=== PATIENT | female | born 1950 | race Caucasian/White ===

== ENCOUNTER 2024-11-14 19:57 | Observation (INO) | payer OTHER, SELFPAY ==
--- NOTE | ~2024-11-14 | XR_ITS ---
HISTORY: fall, previous fx repaired COMPARISON: None TECHNIQUE: 2 views of the left hip along with an AP view of the pelvis FINDINGS: Intramedullary troy and screw are identified within the left femur. Likely periprosthetic fracture identified within the greater and lesser trochanter as well as within the femoral head. The central most portion of the intramedullary screw extends beyond the confines of the iliac bone, a nd approximately 11 mm into the left hemipelvis. Diffuse bony demineralization is identified. The right hip demonstrates degenerative disease, but is otherwise unremarkable. IMPRESSION: Likely periprosthetic fracture of the greater and lesser trochanter as well as the left iliac bone, as detailed above. Reviewed, dictated and finalized at location A. IMPRESSION: Likely periprosthetic fracture of the greater and lesser trochante r as well as the left iliac bone, as detailed above.
--- NOTE | ~2024-11-14 | XR_ITS ---
CHEST RADIOGRAPH, PA AND LATERAL CLINICAL HISTORY: weakness-SOB . COMPARISON: None available TECHNIQUE: PA and lateral views of the chest. FINDINGS The cardiomediastinal silhouette is enlarged. Increased interstitial markings are identified bilaterally, findings suggesting mild pulmonary vascul ar congestion. The lungs are otherwise clear. IMPRESSION: Mild pulmonary vascular congestion, without focal infiltrate. Reviewed, dictated and finalized at location A.
--- OUTSIDE RECORDS SUMMARY | 2024-11-14 19:57 | XMS_ITS | Patient Health Record ---
Author Organization [facility] Address [address] [place] [address] Care Team Providers Care Bakery Associate Name Role Phone Marco Miguel Primary Care Provider [phone] Rahul Martino Unavailable [phone] Allergies Allergen (clinical drug ingredient) Drug/Non Drug Allergy documented on EMR Reaction Allergy Type Onset Date Status Chocolate Flavor Unknown Drug Allergy Active Penicillin Unknown Drug Allergy Active Reason For Referral Reason COPD, started on oxy gen in hospital after recent pneumonia. Diagnosis 1 Chronic obstructive pulmonary disease, unspecified COPD type (J44.9) Referral Organization [facility] Referring Provider First Name Marco Referring Provider Last Name Lamont [facility] Referred Provider [facility] [place] Referred Provider Specialty Pulmonology General Notes Ashley Foster RN 06/07/2024 03:38:53 PM >[facility]'s website indicates that JUAN Olivas with [facility] [place] accepts Mondamin. Will fax referral when notes are available from visit.Kristin RN, Stephanie N 06/08/2024 09:47:40 AM >referral faxed.Kristin RN, Stephanie N 06/08/2024 09:49:06 AM >letter mailed with referral details. Clinical Notes [facility] [place] , [address] [place] [address] Wolfgang Knapp, [place] [address], , Referral Priority Routine Medications Medication SIG (Take, Route, Frequency, Duration) Notes Start Date End Date Status Hospital Bed 07/10/2024 Active Misc. Devices - Hospital bed for 999 days 07/10/2024 Active Ipratropium [place] 0.02 % 2.5 mL as needed Inhalation every 6 hours for 14 days As needed shortness of breath Active Commode Bedside - Wide for 999 days 07/10/2024 Active Nitroglycerin 0.4 MG 1 TABLET EVERY 5MIN S , MAXIMUM 3 DOSES WITH IN 15 MINS Sublingual DIRECTED for 30 days Active Misc. Devices - Safety bathroom grab bars for 999 days 07/13/2024 Active Lisinopril 10 MG 1 tablet Orally Once a day for 30 days Active HYDROcodone-Acetaminophen 10-325 MG 1 tablet as needed Orally up to two times daily 07/25/2024 Active Clopidogrel Bisulfate 75 MG 1 tablet Ora lly Once a day Active Wheelchair - Wide standard manual wheelchair with foot rests and seat cushion for 999 days 07/12/2024 Active Potassium Chloride Ariane ER 20 MEQ 2 tablets Orally Once a day Active Misc. Devices - Shower bench-wide fo r 999 days 07/13/2024 Active Sertraline HCl 100 MG TAKE 1 TABLET BY M OUTH DAILY for 90 Active Ferrous Sulfate 325 (65 Fe) MG 1 tablet Orally daily for 30 days 05/08/2024 Active Gabapentin 600 MG TAKE 1 TABLET BY DEVEN TH THREE TIMES DAILY for 30 Active Fluconazole 200 MG 1 tablet Orally once , may repeat in 3 days if needed 11/24/2023 Active Montelukast Sodium 10 MG TAKE 1 TABLET B Y MOUTH EVERY EVENING for 90 days Active Ventolin HFA 108 (90 Base) MCG/ACT 2 puffs as needed Inhalation every 6 hrs for 30 days Active Dulera 200-5 MCG/ACT INHALE TWO PUFFS BY MOUTH TWICE DAILY for 30 Active Baclofen 10 MG TAKE 1 TABLET BY DEVEN TH THREE TIMES DAILY as NEEDED FOR MUSCLE PAIN for 30 days Active busPIRone HCl 15 MG TAKE 1 TABLET BY DEVEN TH FOUR TIMES DAILY for 30 days Active Misc. Devices - Hospital Style Bed f or 999 days 10/12/2022 Active Furosemide 40 MG TAKE 1.5 TABLET BY M OUTH TWICE DAILY for 30 days Active Carvedilol 6.25 MG 1 tablet Orally twic e a day for 30 days Active Albuterol Sulfate HFA 108 (90 Base) MCG/ACT INHALE 2 PUFFS BY MOUTH BY MOUTH EVERY SIX HOURS NEEDED for 25 Active Diphenoxylate-Atropine 2.5-0.025 MG 1 tablet as needed three times a day for 30 days 07/27/2024 Active Immunizations Vaccine Route Administration Date Status Commmichael nts COVID-19 Moderna 1ST IM Intramuscular 11/27/2020 Administered COVID-19 Moderna 2nd IM Intramuscular 12/25/2020 Administered FLU VAC NO PRSV 4VAL 6 mo+ IM Intramuscular 03/21/2019 Administered Pt tolerated injection well. No questions or concerns voiced. Group [employer] FLU VAC NO PRSV 4VAL 6 mo+ IM Intramuscular 02/12/2020 Administered Pt radhames well. S dated 01/12/2020 FLU VAC NO PRSV 4VAL 6 mo+ IM Intramuscular 03/10/2022 Administered pt tolerated well Influenza, injectable, quadrivalent, preservative free IM Intramuscular 03/21/2018 Administered Pt tolerated injection well. Questions and concerns denied. Social History Tobacco Use: Social History Observation Description Date Details (start date - stop date) Never Smoker NA - NA Sex Assigned At : Social History Observation Description Sex Assigned At Female Tobacco Control (Standard) Question Answer Notes Tobacco use: Nonsmoker Section Notes: Problems Problem Type SNOMED Code ICD Code Onset Dates Problem Status W/U Status Risk Notes Problem Morbid obesity (disorder) (803890303) Morbid (severe) obesity due to excess calories (E66.01) Active confirmed Problem 271751500 Chronic pain syndrome (G89.4) Active confirmed Problem Vaccination given (571290544) Encounter for immunization (Z23) Active confirmed Problem Anxiety (41305899) Anxiety (F41.9) Active confirmed Problem 693466289 custodial curren t use of anticoagulant (Z79.01) Active confirmed Problem 738439164 Mixed stress and urge urinary incontinence (N39.46) Active confirmed Problem 685064668 Obesity (BMI 30-39.9) (E66.9) Active confirmed Problem 06833738 Chronic migraine (G43.709) Active confirmed Problem 47272248 Essential hypertension (I10) 10/07/19 18 Active confirmed Problem 428250134 Gastroesophageal reflux disease, esophagitis presence not specified (K21.9) Active confirmed Problem 71927508 Chronic obstruct scott pulmonary disease, unspecified COPD type (J44.9) Active confirmed Problem 08820831 Congestive heart failure, unspecified congestive heart failure chronicity, unspecified congestive heart failure type (I50.9) 04/19/20 17 Active confirmed Problem 822222395 Primary osteoarthritis of both knees (M17.0) Active confirmed WALKER Problem 950582948 Gastroesophageal reflux disease without esophagitis (K21.9) Active confirmed Problem 490426769 Low hemoglobin (D64.9) Active confirmed Problem Polyneuropathy (G62.9) Active confirmed Problem 693394481 Asthma, unspecif ied asthma severity, unspecified whether complicated, unspecified whether persistent (J45.909) Active confirmed Problem 19955056 Current severe episode of major depressive disorder without psychotic features without prior episode (F32.2) 07/17/19 Active confirmed Problem 780368883 Severe obesity ( BMI >= 40) (E66.01) Active confirmed Vital Signs Heart Rate 88 /min 09/17/2024 09/17/24 pt decl ined wt check Respiratory Rate 16 /min 08/02/2024 Oximetry 98 % 09/17/2024 09/17/24 pt decl ined wt check Blood pressure diastolic 78 mm Hg 09/17/202408/29 pt declined wt check Height 65 in 09/17/2024 09/17/24 pt decl ined wt check Blood pressure systolic 130 mm Hg 09/17/202409/17 pt declined wt check Weight 226.2 lbs 05/31/2024 BMI 37.64 kg/m2 05/31/2024 Encounters Encounter Location Date Provider Diagnosis [address] [place] [address] 03/13/2024 Marco Miguel Congestive heart failure, unspecified congestive heart failure chronicity, unspecified congestive heart failure type I50.9 ; Primary osteoarthritis of both knees M17.0 ; Chronic migraine G43.709 ; Anxiety F41.9 ; Chronic pain syndrome G89.4 ; Chronic obstructive pulmonary disease, unspecified COPD type J44.9 ; Obesity (BMI 30-39.9) E66.9 and Nutritional counseling Z71.[address] [place] [address] 05/08/2024 Marco Miguel Low hemoglobin D64.9 ; Obesity (BMI 30-39.9) E66.9 and Nutritional counseling Z71.[address] [address] 05/31/2024 Marco Miguel Gastroesophageal ref lux disease without esophagitis K21.9 ; Hospital discharge follow-up Z09 ; Chronic migraine G43.709 ; Chronic diarrhea K52.9 ; Chronic obstructive pulmonary disease, unspecified COPD type J44.9 ; Obesity (BMI 30-39.9) E66.9 and Nutritional counseling Z71.[address] [address] 07/12/2024 Marco Miguel Closed fracture of l eft hip, initial encounter S72.002A and Impaired mobility Z74.[address] [address] 08/02/2024 Marco Miguel Closed fracture of l eft hip, initial encounter S72.002A [address] [address] 09/17/2024 Rahul Martino Dysuria R30.0 ; Congestive heart failure, unspecified congestive heart failure chronicity, unspecified congestive heart failure type I50.9 ; Primary osteoarthritis of both knees M17.0 ; Essential hypertension I10 ; Chronic pain syndrome G89.4 ; Chronic obstructive pulmonary disease, unspecified COPD type J44.9 ; Mixed stress and urge urinary incontinence N39.46 ; History of back surgery Z98.890 ; Opioid use F11.90 and Polypharmacy Z79.[address] [address] 11/24/2023 Marco Miguel [address] [address] 12/30/2023 Marco Miguel [address] [address] 01/11/2024 Marco Miguel [address] [address] 04/05/2024 Marco Miguel [address] [address] 04/25/2024 Marco Miguel [facility] [address] [place] [address] 07/03/2024 Marco Miguel [address] [address] 07/10/2024 Marco Miguel [address] [address] 07/13/2024 Marco Miguel Impaired mobility Z74.09 and Closed fracture of left hip, initial encounter S72.002A [address] [address] 07/24/2024 Marco Miguel Closed fracture of l eft hip, initial encounter S72.002A [address] [address] 07/27/2024 Rahul Martino Chronic diarrhea K52 .[address] [address] 10/29/2024 Rahul Martino Assessments Encounter Date Diagnosis (ICD Code) Assessment Notes Treatment Notes Treatment Clinical Notes Section Notes 09/17/2024 Dysuria (ICD-10 - R30.0) UNABLE TO GIVE SPECIMEN IN OFFICE. CAREGIVER WILL TAKE HAT AND CUP HOME AND BRING SPECIMEN BACK TOMORROW. 09/17/2024 Congestive heart failure, unspecified congestive heart failure chronicity, unspecified congestive heart failure type (ICD-10 - I50.9) CLINICALLY STABLE 05/31/2024 Gastroesophageal reflux disease without esophagitis (ICD-10 - K21.9) 05/31/2024 Hospital discharge follow-up (ICD-10 - Z09) 08/02/2024 Closed fracture of left hip, initial encounter (ICD-10 - S72.002A) 07/27/2024 Chronic diarrhea (ICD-10 - K52.9) 07/24/2024 Closed fracture of left hip, initial encounter (ICD-10 - S72.002A) 05/08/2024 Obesity (BMI 30-39.9) (ICD-10 - E66.9) 05/08/2024 Low hemoglobin (ICD-10 - D64.9) 03/13/2024 Congestive heart failure, unspecified congestive heart failure chronicity, unspecified congestive heart failure type (ICD-10 - I50.9) 03/13/2024 Primary osteoarthritis of both knees (ICD-10 - M17.0) WALKER 07/13/2024 Impaired mobility (ICD-10 - Z74.09) 07/13/2024 Closed fracture of left hip, initial encounter (ICD-10 - S72.002A) 07/12/2024 Impaired mobility (ICD-10 - Z74.09) 07/12/2024 Closed fracture of left hip, initial encounter (ICD-10 - S72.002A) 05/08/2024 Nutritional counseling (ICD-10 - Z71.3) 03/13/2024 Chronic migraine (ICD-10 - G43.709) 05/31/2024 Chronic migraine (ICD-10 - G43.709) 09/17/2024 Primary osteoarthritis of both knees (ICD-10 - M17.0) USES HYDROCODONE INTERMITTENTLY 09/17/2024 Essential hypertension (ICD-10 - I10) 05/31/2024 Chronic diarrhea (ICD-10 - K52.9) 03/13/2024 Anxiety (ICD-10 - F41.9) 03/13/2024 Chronic pain syndrome (ICD-10 - G89.4) Takes chronically for OA pain. 05/31/2024 Chronic obstructive pulmonary disease, unspecified COPD type (ICD-10 - J44.9) 09/17/2024 Chronic pain syndrome (ICD-10 - G89.4) 05/31/2024 Obesity (BMI 30-39.9) (ICD-10 - E66.9) 09/17/2024 Chronic obstructive pulmonary disease, unspecified COPD type (ICD-10 - J44.9) 03/13/2024 Chronic obstructive pulmonary disease, unspecified COPD type (ICD-10 - J44.9) 03/13/2024 Obesity (BMI 30-39.9) (ICD-10 - E66.9) 09/17/2024 Mixed stress and urge urinary incontinence (ICD-10 - N39.46) 05/31/2024 Nutritional counseling (ICD-10 - Z71.3) 09/17/2024 History of back surgery (ICD-10 - Z98.890) 03/13/2024 Nutritional counseling (ICD-10 - Z71.3) 09/17/2024 Opioid use (ICD-10 - F11.90) 09/17/2024 Polypharmacy (ICD-10 - Z79.899) SHE AND CAREGIVER ARE VERY RELUCTANT TO MAKE ANY CHANGES IN HER REGIMEN. DISCUSSED THAT SHE TAKES MULTIPLE DRUGS THAT MAY AFFECT BALANCE AND MEMORY. Plan Of Treatment Pending Test Test Name Order Date DEXA Hip and Spine 11/21/2018 MAMMOGRAM BILAT, SCREENING 11/21/2018 Vitamin B12* 06/24/2017 Vitamin D, 25-Hydroxy* 06/24/2017 B-Type Natriuretic Peptide 06/24/2017 CMP14+LP+CBC/D/Plt+T4+TSH 06/24/2017 Insurance Providers Payer Name Payer Address Payer Phone Subscriber Number Group Number Insured Name Patient Relationship to Insured Coverage Start Date Coverage End Date [facility] Attn Claims Department [address] [id number] Kamilah Hale Self - patient is the insured 7 [facility] [employer] Attn Claims Department [address] [id number] Kamilah Hale Self - patient is the insured 0 [facility] Attn Claims Department [address] [id number] Kamilah Hale Self - patient is the insured 1 Medical (General) History Medical History History ICD Code CHF osteoarthritis of the knees and shoulder s bilaterally and stage anxiety acid reflux asthma Polyneuropathy Surgical History Surgery Date(Month/Year) left and right knee replace rotary cuff repaired left and right mastoid behind right ear removed back surgery Hospitalization History Reason Date(Month/Year) CHF-[facility] 05/2022 [facility]-hypokalemia 10/2022
[2024-11-14 19:58] VITALS: BP 125/72; PULSE 91; RESP 19; TEMP 36.4; O2SAT 98
--- OUTSIDE RECORDS SUMMARY | 2024-11-14 19:58 | XMS_ITS | CONTINUITY OF CARE DOCUMENT ---
Author Name francia, lakiaser Address Unknown Organization [facility] Address [address] [place] [address] Phone [phone] Care Team Providers Care Voting Machine Repairer Name Role Phone Jeffrey HOLLEY, John Unavailable [phone] BRIAN APODACA NP Unavailable BRIAN APODACA NP Unavailable PROBLEMS Condition Status Date Provider Notes CHEST PAIN-11/06 NUC INF WALL ISCHEMIA completed - John Murphy MD ARTHRITIS active John Murphy MD ASTHMA active John Murphy MD CAD--cath mild CAD, presever ed EF, 05/2022 active Isidro Nunes Cardiomyopathy -Ef nl active John López Diastolic CHF active John Murphy MD Hyperlipidemia active John Murphy MD HTN essential active John Murphy MD Edema completed - John Murphy MD DVT active John Murphy MD Wheezing completed - John Murphy MD Deconditioning- related to recent hospitalization completed - John Murphy MD Claudication completed - Isidro Nunes Peripheral artery disease, mild active Isidro Nunes Cough active Isidro Nunes Shortness of breath active Isidro Nunes Cardiology examination active Isidro Nunes ENCOUNTERS Date Type Provider Location Encounter Diag nosis - In-person encounter Office Visit John Murphy MD [facility] Cardiology examination - In-person encounter Office Visit John Murphy MD [facility] Shortness of breath - In-person encounter Office Visit John Murphy MD [facility] Cough - In-person encounter Office Visit John Murphy MD [facility] - In-person encounter Office Visit John Murphy MD [facility] - In-person encounter Office Visit John Murphy MD [facility] ClaudicationPeripheral artery disease, mild - In-person encounter Office Visit John Murphy MD [facility] CAD--cath mild CAD, presevered EF, ardiomyopathy -Ef nlDeconditioning- related to recent hospitalization - In-person encounter Office Visit John Murphy MD [facility] CAD--cath mild CAD, presevered EF, 05/2022 - In-person encounter Office Visit John Murphy MD [facility] - In-person encounter Office Visit John Murphy MD [facility] - In-person encounter Office Visit John Murphy MD [facility] - In-person encounter Office Visit John Murphy MD [facility] - In-person encounter Office Visit John Murphy MD [facility] - In-person encounter Office Visit John Murphy MD [facility] EdemaWheezing - In-person encounter Office Visit John Murphy MD [facility] - In-person encounter Office Visit John Murphy MD [facility] - In-person encounter Office Visit John Murphy MD [facility] - In-person encounter Office Visit John Murphy MD [facility] - In-person encounter Office Visit John Murphy MD [facility] - In-person encounter Office Visit John Murphy MD [facility] - In-person encounter Office Visit John Murphy MD [facility] - In-person encounter Office Visit John Murphy MD [facility] DVT - In-person encounter Office Visit John Murphy MD [facility] - In-person encounter Office Visit John Murphy MD [facility] - In-person encounter Office Visit John Murphy MD [facility] - In-person encounter Office Visit John Murphy MD [facility] CAD--cath mild CAD, presevered EF, 3Cardiomyopathy -Ef nl - In-person encounter Office Visit John Murphy MD [facility] Hyperlipidemia - In-person encounter Office Visit John Murphy MD [facility] CAD--cath mild CAD, presevered EF, 3Cardiomyopathy -Ef nlDiastolic CHFHyperlipidemiaHTN essential - In-person encounter Office Visit John Murphy MD [facility] CHEST PAIN-11/06 NUC INF WALL ISCHEMIACAD--cath mild CAD, presevered EF, 05/2022 - In-person encounter Office Visit John Murphy MD [facility] - In-person encounter Office Visit John Murphy MD [facility] ARTHRITISASTHMA VITAL SIGNS Date Observation Value Provider Body Mass Index (Ratio) 36.21 kg/m2 Isidro Grantzai blood pressure, diastolic 77 mm[Hg] Desire nkLogic blood pressure, systolic 111 mm[Hg] Hortencia kLogic weight E&M 211 [lb_av] Anna Tirado s blood pressure, diastolic 77 mm[Hg] Laura Alvarez blood pressure, systolic 111 mm[Hg] Tasha Alvarez blood pressure, cuff size regular Laura Alvarez pulse rate 87 /min Anna brizuela oxygen saturation, oximetry 98 % Anna Alvarez height E&M 64 [in_i] Anna Tirado s Body Mass Index (Ratio) 40.75 kg/m2 Renee nelida Puhse blood pressure, diastolic 79 mm[Hg] Ky macarena Carreon blood pressure, systolic 167 mm[Hg] Ashley elif Carreon oxygen saturation, oximetry 97 % [facility] pulse rate 87 /min [facility] blood pressure, cuff size regular Dash macarena Carreon weight E&M 237.4 [lb_av] [facility] height E&M 64 [in_i] [facility] Body Mass Index (Ratio) 40.33 kg/m2 Thomas Murphy MD blood pressure, diastolic 77 mm[Hg] Roxanne Dior blood pressure, systolic 134 mm[Hg] Vip in [facility], oximetry 96 % [facility]h [facility] respiratory rate E&M 16 /min Khanh M msalyssa pulse rate 78 /min [facility]h [facility] blood pressure, cuff size regular Roxanne Dior weight E&M 235 [lb_av] Khanh [facility] height E&M 64 [in_i] [facility] Body Mass Index (Ratio) 39.48 kg/m2 Isidro Nunes blood pressure, cuff size regular Fa [facility] blood pressure, diastolic 69 mm[Hg] [facility] blood pressure, systolic 125 mm[Hg] [facility] oxygen saturation, oximetry 96 % [facility] pulse rate 83 /min [facility] weight E&M 230 [lb_av] [facility] respiratory rate E&M 16 /min [facility] height E&M 64 [in_i] [facility] Body Mass Index (Ratio) 41.88 kg/m2 [facility] pulse rate 90 /min [facility] blood pressure, cuff size regular [facility] blood pressure, diastolic 74 mm[Hg] [facility] blood pressure, systolic 146 mm[Hg] [facility] oxygen saturation, oximetry 94 % [facility] respiratory rate E&M 16 /min [facility] weight E&M 244 [lb_av] [facility] height E&M 64 [in_i] [facility] Body Mass Index (Ratio) 39.92 kg/m2 [facility] nelida [facility] blood pressure, diastolic 74 mm[Hg] susanna Anderson blood pressure, systolic 134 mm[Hg] She rojelio Anderson pulse rate 72 /min Ena Anderson respiratory rate E&M 20 /min Ena Anderson oxygen saturation, oximetry 100 % Ena Anderson blood pressure, cuff size large Sh susanna Anderson weight E&M 232.6 [lb_av] Ena Monica height E&M 64 [in_i] Ena Monica Body Mass Index (Ratio) 39.13 kg/m2 Thomas Murphy MD blood pressure, cuff size large Ke rri Marquisuenetalia blood pressure, diastolic 70 mm[Hg] Ke rri Jose Eduardonetalia blood pressure, systolic 110 mm[Hg] Pantera ri Sole oxygen saturation, oximetry 94 % Yvonne Normanfjuan respiratory rate E&M 16 /min Yvonne Miley kapooreneshannanelddestini pulse rate 96 /min Yvonne Redd thomas weight E&M 228 [lb_av] Yvonne Jose Eduardoneanand thomaser height E&M 64 [in_i] Yvonne Redd thomas blood pressure, cuff size large Gerardo carolyn Beltran oxygen saturation, oximetry 97 % Lisette Beltran pulse rate 73 /min Lisette Beltran blood pressure, diastolic 67 mm[Hg] Gerardo Beltran blood pressure, systolic 134 mm[Hg] Any arie Beltran height E&M 64 [in_i] Lisette Beltran Body Mass Index (Ratio) 40.68 kg/m2 Thomas Murphy MD blood pressure, diastolic 77 mm[Hg] St augustin Hong blood pressure, systolic 144 mm[Hg] Sta kenya Hong oxygen saturation, oximetry 97 % Kay Hal pulse rate 76 /min Kay Hal respiratory rate E&M 16 /min Kaykenya purcell weight E&M 237 [lb_av] Kay Hal height E&M 64 [in_i] Kaykenya Hong Body Mass Index (Ratio) 41.02 kg/m2 Thomas Murphy MD blood pressure, diastolic -1 mm[Hg] Desire nkLogic blood pressure, systolic 120 mm[Hg] Hortencia kLog blood pressure, diastolic 67 mm[Hg] St acy Hal blood pressure, systolic 120 mm[Hg] Sta cy Hal oxygen saturation, oximetry 96 % Kay Hal pulse rate 78 /min Kay Hal weight E&M 239 [lb_av] Kay Hal respiratory rate E&M 16 /min Kay D jazzy height E&M 64 [in_i] Kay Hal Body Mass Index (Ratio) 39.89 kg/m2 Thomas Murphy MD blood pressure, cuff size regular St acy Hal blood pressure, diastolic 82 mm[Hg] St acy Hal blood pressure, systolic 162 mm[Hg] Sta cy Hal oxygen saturation, oximetry 92 % Kay Hal pulse rate 50 /min Kay Hal respiratory rate E&M 16 /min Kay D jazzy weight E&M 232.4 [lb_av] Kay Hal height E&M 64 [in_i] Kay Hal Body Mass Index (Ratio) 40.16 kg/m2 Thomas Murphy MD blood pressure, cuff size large Ke rri Marquisuenenfjuan blood pressure, diastolic 80 mm[Hg] Ke rri Marquisuenetalia blood pressure, systolic 150 mm[Hg] Pantera Whipple oxygen saturation, oximetry 95 % Yvonne Sole respiratory rate E&M 20 /min Yvonne hernandez pulse rate 91 /min Yvonne oconnell weight E&M 234 [lb_av] Yvonne Rainey lder height E&M 64 [in_i] Yvonne Redd lder Body Mass Index (Ratio) 41.88 kg/m2 Thomas Murphy MD respiratory rate E&M 16 /min Merdeith Si ms oxygen saturation, oximetry 95 % Meredith Meza pulse rate 82 /min Meredith Meza blood pressure, cuff size regular Sa ra Meza weight E&M 244 [lb_av] Meredith Meza height E&M 64 [in_i] Meredith Meza Body Mass Index (Ratio) 42.91 kg/m2 Isidro Manju blood pressure, resting Yes Palmetto kaplan O'Tadeo blood pressure, diastolic 90 mm[Hg] Li nkLogic blood pressure, systolic 160 mm[Hg] Hortencia kLogic blood pressure, diastolic 90 mm[Hg] Ma rsha O'Tadeo blood pressure, systolic 160 mm[Hg] [facility] O'[place]o oxygen saturation, oximetry 95 % Celsa O'Tadeo respiratory rate E&M 18 /min Celsa O'Tadeo pulse rate 68 /min Celsa O'Tadeo weight E&M 250 [lb_av] Celsa O'Tadeo height E&M 64 [in_i] Celsa O'Tadeo Body Mass Index (Ratio) 41.19 kg/m2 Thomas Murphy MD blood pressure, cuff size large Ke rri Sole blood pressure, diastolic 90 mm[Hg] Ke rri Marquisuenenfelddestini blood pressure, systolic 150 mm[Hg] Pantera Whipple oxygen saturation, oximetry 95 % Yvonne Sole respiratory rate E&M 20 /min Yvonne hernandez pulse rate 95 /min Yvonne Rainey er weight E&M 240 [lb_av] Yvonne Rainey er height E&M 64 [in_i] Yvonne Rainey [facility] Body Mass Index (Ratio) 40.85 kg/m2 Thomas Murphy MD blood pressure, diastolic 77 mm[Hg] Cy luda Anglin blood pressure, systolic 170 mm[Hg] Lucinda ashish Anglin blood pressure, cuff size regular Cy tammienearie Anglin pulse rate 102 /min Dayan Campbel l oxygen saturation, oximetry 94 % Dayan Anglin respiratory rate E&M 20 /min Dayan Anglin weight E&M 238 [lb_av] Dayan Campbel l height E&M 64 [in_i] Dayan Campbel l Body Mass Index (Ratio) 42.39 kg/m2 Thomas Murphy MD blood pressure, diastolic 79 mm[Hg] Cy ntchristya Anglin blood pressure, systolic 149 mm[Hg] Lucinda pamelaa Anglin blood pressure, cuff size regular Cy ntchristya Anglin pulse rate 96 /min Dayan Campbel l oxygen saturation, oximetry 99 % Dayan Anglin respiratory rate E&M 16 /min Dayan Anglin weight E&M 247 [lb_av] Dayan Campbel l height E&M 64 [in_i] Dayan Campbel l Body Mass Index (Ratio) 41.36 kg/m2 Thomas Murphy MD blood pressure, diastolic 64 mm[Hg] Paddy Jasso blood pressure, systolic 122 mm[Hg] Alexa Jasso oxygen saturation, oximetry 96 % Maureen Jasso respiratory rate E&M 20 /min Ivan Jasso pulse rate 92 /min Maureen mcgraw weight E&M 241.0 [lb_av] Maureen brown temperature site temporal Sonia Tank sley temperature E&M 97.5 [degF] Sonia Tanks nusrat height E&M 64 [in_i] Maureen mcgraw Body Mass Index (Ratio) 41.02 kg/m2 Thomas Murphy MD blood pressure, diastolic 66 mm[Hg] Cy luda Anglin temperature E&M 97.7 [degF] Carolina Puhs e blood pressure, systolic 127 mm[Hg] Lucinda ashish Anglin pulse rate 74 /min Dayan Campbel l oxygen saturation, oximetry 95 % Dayan Anglin respiratory rate E&M 16 /min Dayan Anglin weight E&M 239 [lb_av] Dayan Campbel l blood pressure, cuff size regular Cy nthia Anglin height E&M 64 [in_i] Dayan Campbel l Body Mass Index (Ratio) 41.53 kg/m2 Thomas Murphy MD blood pressure, cuff size regular Cy nthia Anglin blood pressure, diastolic 84 mm[Hg] Cy nthia Anglin blood pressure, systolic 164 mm[Hg] Lucinda thia Anglin oxygen saturation, oximetry 94 % Dayan Anglin respiratory rate E&M 20 /min Dayan Anglin pulse rate 89 /min Dayan Campbel l weight E&M 242 [lb_av] Dayan Campbel l height E&M 64 [in_i] Dayan Campbel l Body Mass Index (Ratio) 42.22 kg/m2 Thomas Murphy MD blood pressure, diastolic 80 mm[Hg] Da noel Brant blood pressure, systolic 148 mm[Hg] Dac ia Brant oxygen saturation, oximetry 96 % Do Brant respiratory rate E&M 24 /min Do V oss pulse rate 76 /min Do Brant weight E&M 246 [lb_av] Do Brant height E&M 64 [in_i] Do Brant Body Mass Index (Ratio) 41.02 kg/m2 Thomas Murphy MD blood pressure, diastolic 77 mm[Hg] Paddy Jasso blood pressure, systolic 156 mm[Hg] Alexa Jasso oxygen saturation, oximetry 94 % Maureen Jasso respiratory rate E&M 20 /min Ivan Jasso pulse rate 74 /min Maureen Johnston sofy weight E&M 239 [lb_av] Maureen Johnston [facility] height E&M 64 [in_i] Maureen Johnston [facility] Body Mass Index (Ratio) 24.20 kg/m2 Thomas Murphy MD blood pressure, diastolic 70 mm[Hg] Da noel Brant blood pressure, systolic 166 mm[Hg] Dac ia Brant oxygen saturation, oximetry 94 % Do Brant respiratory rate E&M 20 /min Do V oss pulse rate 79 /min Do Brant weight E&M 141 [lb_av] Do Brant height E&M 64 [in_i] Do Brant Body Mass Index (Ratio) 41.19 kg/m2 Thomas Murphy MD blood pressure, diastolic 90 mm[Hg] Da noel Brant blood pressure, systolic 148 mm[Hg] Dac ia Rbant oxygen saturation, oximetry 97 % Do Brant respiratory rate E&M 28 /min Do V oss pulse rate 86 /min Do Brant weight E&M 240 [lb_av] Do Brant height E&M 64 [in_i] Do Brant Body Mass Index (Ratio) 40.33 kg/m2 Thomas Murphy MD blood pressure, cuff size large Ke rri Gruenemikaer blood pressure, diastolic 80 mm[Hg] Ke rri Gruenenfelder blood pressure, systolic 120 mm[Hg] Ker ri Gruenenfelder oxygen saturation, oximetry 96 % Yvonne Raymonder respiratory rate E&M 18 /min Yvonne G emeliaenenfelder pulse rate 80 /min Yvonne Grrob lder weight E&M 235 [lb_av] Yvonne Grchristopherneshannane lder height E&M 64 [in_i] Yvonne Grchristophernenfe er Body Mass Index (Ratio) 40.33 kg/m2 Thomas Murphy MD blood pressure, cuff size regular Ke rri Gruenemikaer blood pressure, diastolic 94 mm[Hg] Ke rri Gruenenfelder blood pressure, systolic 171 mm[Hg] Ker ri Marquisuenemikaer oxygen saturation, oximetry 92 % Yvonne Raymonder respiratory rate E&M 16 /min Yvonne G emeliaenenfelder pulse rate 78 /min Yvonne Gruenenfe lder weight E&M 235 [lb_av] Yvonne Gruenenfe lder height E&M 64 [in_i] Yvonne Gruenenfe lder Body Mass Index (Ratio) 41.19 kg/m2 Thomas Murphy MD blood pressure, resting Yes Mellisa Jasso blood pressure, diastolic 77 mm[Hg] Paddy Jasso blood pressure, systolic 160 mm[Hg] Alexa Jasso oxygen saturation, oximetry 96 % Maureen Jasso respiratory rate E&M 20 /min Ivan Jasso pulse rate 80 /min Maureen mcgraw weight E&M 240 [lb_av] Maureen mcgraw height E&M 64 [in_i] Maureen mcgraw Body Mass Index (Ratio) 32.95 kg/m2 Thomas Murphy MD weight E&M 192 [lb_av] John Murphy MD blood pressure, diastolic 74 mm[Hg] Paddy Jasso blood pressure, systolic 129 mm[Hg] Alexa Jasso Body Mass Index (Ratio) 32.99 kg/m2 Mellisa Jasso pulse rate 77 /min Maureen mcgraw oxygen saturation, oximetry 96 % Maureen Jasso respiratory rate E&M 20 /min Ivan Jasso weight E&M 192.2 [lb_av] Maureen brown height E&M 64 [in_i] Maureen mcgraw blood pressure, diastolic 72 mm[Hg] Jaciel Madera RN blood pressure, systolic 138 mm[Hg] Kade Madera RN pulse rate 82 /min Kade Madera RN oxygen saturation, oximetry 98 % Kade Madera RN respiratory rate E&M 17 /min Kade valladares RN weight E&M 229 [lb_av] Kade Madera RN blood pressure, walker tolic, second observation 74 mm[Hg] Adilia Clemente blood pressure, syst olic, second observation 142 mm[Hg] Adilia Clemente blood pressure, diastolic 74 mm[Hg] Ca eb Clemente blood pressure, systolic 142 mm[Hg] Car ol Chyna pulse rate 75 /min Adilia Chyna oxygen saturation, oximetry 90 % Adilia Chyna respiratory rate E&M 16 /min Adilia Sargent yandel weight E&M 234 [lb_av] Adilia Chyna ALLERGIES Allergy Name Onset Date Reaction Criticality Status KEFLEX rash and feeling of bugs crawling on her skin Low Criticality active PENICILLIN Low Criticality active RESULTS Date Observation Value Provider Reference Range Interpretation Location 0 hemoglobin A1C, blood, as % of total hemoglobin 5.3 % [facility] 0 LDL cholesterol, serum 136 mg/dL [facility] 5 anion gap, serum [facility] calcium, serum 9.2 mg/dL [facility] Leonardo 5 blood glucose, fasting 104 mg/dL [facility] 5 creatinine, serum 0.8 mg/dL [facility] Leonardo 5 urea nitrogen, blood 17 mg/dL [facility] Leonardo 5 carbon dioxide, serum, total 31 mmol/L [facility] Leonardo 5 chloride, serum 103 mmol/L [facility] Leonardo 5 potassium, serum 4.1 mmol/L [facility] Leonardo 5 sodium, serum 138 mmol/L [facility] 5 platelet count 243 10*3/uL Alannah Patterson 5 red blood cell distribution width 13.4 % Alannah Patterson 5 mean corpuscular hemoglobin concentration, RBC 33.3 g/dL Alannah Patterson 5 mean corpuscular hemoglobin, RBC 28.4 pg Alannah Patterson 5 mean corpuscular volume, RBC 85.3 fL Alannah Patterson 5 hematocrit, blood 34.4 % Alannah Patterson 5 hemoglobin, blood 11.4 g/dL [facility] Leonardo erythrocyte (RBC) count 4.03 10*6/mm3 Alannah Patterson 2010/07/1 5 monocytes as percent of blood leukocytes 7.6 % Alannah Patterson 5 lymphocytes as percent of blood leukocytes 33.0 % Alannah Patterson 5 leukocyte count, blood 4.5 10*3/mm3 Alannah Patterson HISTORY OF MEDICATION USE Medication Status Instructions Dates Provider Indications Com ments clopidogrel 75 mg tablet active TAKE 1 TABLET BY MOUTH DAILY Isidro Nunes pantoprazole 40 mg tablet,delayed release (DR/EC) active Take 1 tablet by mouth once a day Isidro Juanitazageraldo spironolactone 25 mg tablet active Take 1 tablet by mouth once a day Isidro Negrogeraldo albuterol sulfate 90 mcg/actuation HFA aerosol inhaler active 1 puff using inhaler every four to six hours as directed as needed Isidro Juanitazageraldo albuterol sulfate 90 mcg/actuation HFA aerosol inhaler completed - Isidro Nunes clopidogrel 75 mg tablet completed Take 1 tablet by mouth once a day - Sussy Lemons potassium chloride 20 mEq tablet,ER particles/crystal s active TAKE 2 TABLET BY MOUTH EVERY DAY Isidro Nunes gabapentin 600 mg tablet completed - Isidro Nunes ondansetron 4 mg tablet,disintegra ting active Isidro Ferminspenser butalbital-acetam inophen-caff 50-325-40 mg tablet active Isidro Nunes clopidogrel 75 mg tablet completed TAKE 1 TABLET BY MOUTH EVERY DAY - Yvonne Whipple potassium chloride 20 mEq tablet,ER particles/crystal s completed Take 1 tablet by mouth once daily - [facility] atorvastatin 40 mg tablet active TAKE 1 TABLET BY MOUTH EVERY NIGHT [facility] Plavix 75 mg tablet completed Take 1 tablet by mouth once a day - [facility] Dulera 200-5 mcg/actuation HFA aerosol inhaler active Isidro Nunes baclofen 10 mg tablet active Isidro Nunes furosemide 40 mg tablet active Take 2 tablet by mouth twice a day Isidro Nunes KEFLEX 500 MG ORAL CAPSULE completed one tablet 4 times a day for 1 week - Dayan Anglin sertraline 50 mg tablet active Take 1 tablet by mouth once a day Isidroyenni Nunes RANITIDINE HCL 300 MG ORAL TABLET completed take 1 tab once a day - Dayan Anglin COUMADIN 5 MG ORAL TABLET completed ONe tablet once daily - John Murphy MD buspirone 15 mg tablet active 1 tablet by mouth three times a day John Murphy MD Singulair 10 mg tablet active Take 1 by mouth once a day Yvonne Whipple HYDROCODONE-ACETA MINOPHEN 10-325 MG ORAL TABLET completed one pill every 6 hours as needed - Do Guo gabapentin 300 mg capsule active 1 by mouth twice a day Isidro Nunes B-12 TABLET SUBLINGUAL completed one shot a month - Do Brant butalbital-acetam [id number] mg capsule completed capsule by mouth twice a day - Isidro Nunes alprazolam 2 mg tablet completed Take 1 by mouth three times a day - Yvonne Whipple nitroglycerin 0.4 mg tablet, sublingual active DISSOLVE ONE TABLET SUBLINGUALLY EVERY 5 MINUTES UP TO THREE TIMES NEEDED FOR CHEST PAIN THEN CALL EMS Meredith Meza Lasix 40 mg tablet completed 1 tablet by mouth twice a day - John Murphy MD CARISOPRODOL 350 MG ORAL TABLET completed one tab three times daily - John Murphy MD LOMOTIL 2.5-0.025 MG ORAL TABLET completed twice daily - John Murphy MD ONDANSETRON 4 MG ORAL TABLET DISINTEGRATING completed one tab three times daily - John Murphy MD GABAPENTIN 300 MG ORAL CAPSULE completed one tab twice daily - John Murphy MD Ventolin HFA 90 mcg/actuation HFA aerosol inhaler completed four times a day as needed - Isidro Tomi B-12 500 MCG ORAL TABLET completed once daily - John Murphy MD ipratropium-albut mackenzie 0.5 mg-3 mg(2.5 mg base)/3 mL solution for nebulization active every six hours as needed Kade Madera RN CLINDAMYCIN HCL 150 MG ORAL CAPSULE completed one tab 4 times daily - John Murphy MD ASPIRIN 325 MG ORAL TABLET completed ONE TAB. DAILY - Do Guo lisinopril 10 mg tablet completed 1 tablet by mouth twice a day - Page Cummings RN 90 DAY SUPPLY carvedilol 6.25 mg tablet completed Take 1 tablet by mouth twice a day - Celsa O'Tadeo PREMARIN TABLET completed 0.625 mg po daily - John Murphy MD ASPIRIN 325 MG ORAL TABLET completed one tab daily - Kade Madera RN ALPRAZOLAM 1 MG ORAL TABLET completed ONE TAB. THREE TIMES DAILY - John Murphy MD per bottle SINGULAIR 10 MG ORAL TABLET completed one tab. daily - John Murphy MD per bottle HYDROCODONE-ACETA MINOPHEN 5-500 MG ORAL TABLET completed 1 tablet every 4-6 hours as needed - John Murphy MD per bottle TRAMADOL HCL TABLET completed 50mg 1 tablet 3 times daily - Kade Madera RN per bottle ENABLEX [id number] completed 15mg 1 daily - Kade Madera RN FIORICET TABS completed 1 tablet twice daily - John Murphy MD per bottle CALCIUM CARBONATE TABLET completed one tab. twice daily - John Murphy MD per med bottle SOCIAL HISTORY Date Observation Value Provider drug use none Isidro Nunes smoking status Never smoker Isidro Nunes drug use none Isidro Nunes smoking status Never smoker Isidro Nunes drug use none Isidro Nunes smoking status Never smoker Isidro Nunes drug use none Isidro Nunes smoking status Never smoker Isidro Tom drug use none Isidro Nunes smoking status Never smoker Isidro Nunes social history reviewed E&M revi ewed - no changes required Isidro Tomgeraldo social history reviewed E&M revi ewed - no changes required John Murphy MD physical exercise, f requency, days per week yes Lisette Beltran caffeine use, averag e drinks per day no Lisette Beltran smoking status Never smoker Lisette Beltran social history reviewed E&M revi ewed - no changes required Isidro Tomgeraldo social history E&M Marital Statu s: Single L osiel alone E thnicity: Smoking History: P atmoni has never smoked. Isidro Nunes physical exercise, f requency, days per week yes Kay Hong caffeine use, averag e drinks per day no Kay Hong smoking status Never smoker Kay Hong social history reviewed E&M revi ewed - no changes required John Murphy MD physical exercise, f requency, days per week yes Kay Hong caffeine use, averag e drinks per day no Kay Hong smoking status Never smoker Kay Hong social history reviewed E&M revi ewed - no changes required John Murphy MD physical exercise, f requency, days per week yes Kay Hong caffeine use, averag e drinks per day no Kay Hong smoking status Never smoker Kay Hal social history reviewed E&M revi ewed - no changes required Isidro Nunes social history E&M Marital Statu s: Single L osiel alone E thnicity: Smoking History: P rigo has never smoked. John Murphy MD social history reviewed E&M revi ewed - no changes required John Murphy MD physical exercise, f requency, days per week yes Yvonne Whipple caffeine use, averag e drinks per day no Yvonne Whipple smoking status Never smoker Yvonne degroot social history reviewed E&M revi ewed - no changes required Isidor Nunes social history E&M Marital Statu s: Single L osiel alone E thnicity: Smoking History: P rigo has never smoked. Isidro Nunes social history reviewed E&M revi ewed - no changes required Isidro Nunes physical exercise, f requency, days per week yes Celsa Centeno'Tadeo caffeine use, averag e drinks per day no Celsa [place] smoking status Never smoker Celsa Centeno'[place]adeo social history E&M Marital Statu s: Single L osiel alone E thnicity: Smoking History: P rigo has never smoked. John Murphy MD social history reviewed E&M revi ewed - no changes required John Murphy MD physical exercise, f requency, days per week yes Yvonne Whipple caffeine use, averag e drinks per day no Yvonne Whipple smoking status Never smoker Yvonne degroot social history E&M Marital Statu s: Single L osiel alone E thnicity: Smoking History: P atient has never smoked. John Murphy MD social history reviewed E&M revi ewed - no changes required John Murphy MD physical exercise, f requency, days per week yes Dayan Anglin caffeine use, averag e drinks per day no Dayan Anglin smoking status Never smoker Dayan long social history E&M Marital Statu s: Single L osiel alone E thnicity: Smoking History: P atient has never smoked. John Murphy MD social history reviewed E&M revi ewed - no changes required John Murphy MD physical exercise, f requency, days per week yes Dayan Anglin caffeine use, averag e drinks per day no Dayan Anglin smoking status Never smoker Dayan long social history reviewed E&M revi ewed - no changes required Mirtha Melendrez physical exercise, f requency, days per week yes Maureen Romero caffeine use, averag e drinks per day no Maureen Jasso smoking status Never smoker Maureen Goss herlinda social history E&M Marital Statu s: Single L osiel alone E thnicity: Smoking History: P atient has never smoked. John Murphy MD social history reviewed E&M revi ewed - no changes required John Murphy MD physical exercise, f requency, days per week yes Dayan Anglin caffeine use, averag e drinks per day no Dayan Anglin smoking status Never smoker Dayan long social history E&M Marital Statu s: Single L osiel alone E thnicity: Smoking History: P atient has never smoked. John Murphy MD social history reviewed E&M revi ewed - no changes required John Murphy MD physical exercise, f requency, days per week yes Dayan Anglin caffeine use, averag e drinks per day no Dayan Anglin smoking status Never smoker Dayan Jatin long social history reviewed E&M revi ewed - no changes required John Murphy MD physical exercise, f requency, days per week yes Do Brant caffeine use, averag e drinks per day no Do Brant drug use none Do Brant smoking status Never smoker Do Brant social history reviewed E&M revi ewed - no changes required John Murphy MD physical exercise, f requency, days per week yes Maureen Jasso caffeine use, averag e drinks per day no Maureen Jasso drug use none Maureen mcgraw smoking status Never smoker Maureen Paniagua social history reviewed E&M revi ewed - no changes required John Murphy MD physical exercise, f requency, days per week yes Do Brant caffeine use, averag e drinks per day no Do Brant drug use none Do Brant smoking status Never smoker Do Brant number of grandchildren John Murphy MD T jimbo Murphy MD social history reviewed E&M revi ewed - no changes required John Murphy MD physical exercise, f requency, days per week yes Do Brant caffeine use, averag e drinks per day no Do Brant drug use none Do Brant smoking status Never smoker Do Brant social history reviewed E&M revi ewed - no changes required John Murphy MD physical exercise, f requency, days per week yes Yvonne Whipple caffeine use, averag e drinks per day no Yvonne Arguetapiadestini drug use none Yvonne Rainey lder smoking status Never smoker Yvonne degroot social history reviewed E&M revi ewed - no changes required John Murphy MD physical exercise, f requency, days per week yes Yvonne Arguetapiadestini caffeine use, averag e drinks per day no Yvonne Whipple drug use none Yvonne Rainey lder smoking status Never smoker Yvonne pedrozaer social history reviewed E&M revi ewed - no changes required John Murphy MD physical exercise, f requency, days per week yes Maureen Jasso caffeine use, averag e drinks per day no Maureen Jasso drug use none Maureen mcgraw smoking status Never smoker Maureen Paniagua social history reviewed E&M revi ewed - no changes required Carolina Rashid physical exercise, f requency, days per week yes Carolina Rashid caffeine use, averag e drinks per day no Carolina Rashid drug use none Carolina Rashid smoking status Never smoker Carolina Malikgerardo das social history reviewed E&M revi ewed - no changes required John Murphy MD physical exercise, f requency, days per week yes Maureen Jasso caffeine use, averag e drinks per day no Maureen Jasso drug use none Maureen mcgraw smoking status Never smoker Maureen Paniagua social history E&M Marital Statu s: Single L osiel alone E thnicity: Kade Madera RN social history reviewed E&M reviewed Kade Madera RN social history E&M Marital Status: Single John Murphy MD drug use none John Murphy MD social history reviewed E&M reviewed John Murphy MD handedness R Handed John Murphy MD physical exercise, f requency, days per week yes [employer] caffeine use, averag e drinks per day no [employer] smoking status Non-smoker [employer] FUNCTIONAL STATUS Date Observation Value Provider HRA, CV Assess/Plan, Angina (inactive) Management Plan continue current therapy Isidro Ahmedzai HRA, CV Assess/Plan, Angina (inactive) Management Plan continue current therapy Isidro Ahmedzai HRA, CV Assess/Plan, Angina (inactive) Management Plan continue current therapy Isidro Ahmedzai HRA, CV Assess/Plan, Angina (inactive) Management Plan continue current therapy Isidro Ahmedzai HRA, CV Assess/Plan, Angina (inactive) Management Plan continue current therapy Isidro Ahmedzai HRA, CV Assess/Plan, Angina (inactive) Management Plan continue current therapy Isidro Ahmedzai HRA, CV Assess/Plan, Angina (inactive) Management Plan continue current therapy Isidro Ahmedzai HRA, CV Assess/Plan, Angina (inactive) Management Plan continue current therapy Isidro Ahmedzai HRA, CV Assess/Plan, Angina (inactive) Management Plan continue current therapy John Murphy MD HRA, CV Assess/Plan, Angina (inactive) Management Plan continue current therapy Isidro Ahmedzai HRA, CV Assess/Plan, Angina (inactive) Management Plan continue current therapy Isidro Ahmedzai HRA, CV Assess/Plan, Angina (inactive) Management Plan continue current therapy John Murphy MD HRA, CV Assess/Plan, Angina (inactive) Management Plan continue current therapy John Murphy MD HRA, CV Assess/Plan, Angina (inactive) Management Plan continue current therapy John Murphy MD HRA, CV Assess/Plan, Angina (inactive) Management Plan continue current therapy John Murphy MD HRA, CV Assess/Plan, Angina (inactive) Management Plan continue current therapy John Murphy MD HRA, CV Assess/Plan, Angina (inactive) Management Plan continue current therapy John Murphy MD HRA, CV Assess/Plan, Angina (inactive) Management Plan continue current therapy John Murphy MD HRA, CV Assess/Plan, Angina (inactive) Management Plan continue current therapy John Murphy MD MENTAL STATUS Date Observation Value Provider assessment of judgme nt and insight E&M Alert and oriented to time, place and person. Mood and affect are normal. Kade Madera RN assessment of judgme nt and insight E&M Alert and oriented to time, place and person. Mood and affect are normal. John Murphy MD FAMILY HISTORY Family Member Condition Full Sister Family History of Co ronary Artery Disease: Father Family History of Co ronary Artery Disease: Mother Family History of Co ronary Artery Disease: Full Brother Family History of Di abetes: INSURANCE PROVIDERS Payer name Policy type / Coverage type [place] [employer] party ID [facility] [place] (2) Medicaid [id number] ADVANCE DIRECTIVES Name Date DISCUSSED - NO DECISION MADE TREATMENT PLAN Date Name Performer [id number],S, Isidro Ferminmedza i [id number],S, Isidro Ferminmedza i [id number],S, Isidro Ahmedza i [id number],S, Isidro Ahmedza i [id number],S, Isidro Ahmedza i [id number],S, Isidro Ahmedza i [id number],S, Isidro Ahmedza i [id number],S, Isidro Ahmedza i [id number],S, Isidro Ahmedza i [id number],S, Isidro Ahmedza i [id number],S, Isidro Ahmedza i [id number],S, Isidro Ahmedza i [id number],S, Isidro Ahmedza i [id number],S, Isidro Ahmedza i [id number],S, Isidro Ahmedza i [id number],S, Isidro Ahmedza i [id number],S, Isidro Ahmedza i [id number],S, Isidro Ahmedza i [id number],S, Isidro Ahmedza i [id number],S, Isidro Ahmedza i [id number],S, Isidro Ahmedza i [id number],S, Isidro Ahmedza i [id number],S, Isidro Ahmedza i [id number],S, Isidro Ahmedza i [id number],S, Isidro Ahmedza i [id number],S, Isidro Ahmedza i [id number],S, Isidro Ahmedza i [id number],S, Isidro Ahmedza i [id number],S, Isidro Ahmedza i [id number],S, John Murphy MD [id number],S, John Murphy MD [id number],W, John Murphy MD [id number],S, John Murphy MD [id number],S, John Murphy MD [id number],S, Isidro Juanitasarahy i [id number],S, Isidro Negro i [id number],S, Isidro Tom i [id number],S, Isidro Tom i [id number],S, Isidro Tom i [id number],S, Isidro Ferminjermaine i Cardiology: H er updated medication list for this problem includes: Clopidogrel 75 Mg Tablet (Clopidogrel) ..... Take 1 tablet by mouth once a day John Murphy MD Cardiology: H er updated medication list for this problem includes: Clopidogrel 75 Mg Tablet (Clopidogrel) ..... Take 1 tablet by mouth once a day Nitroglycerin 0.4 Mg Tablet, Sublingual (Nitroglycerin) ..... Dissolve one tablet sublingually every 5 minutes up to three times as needed for chest pain then call ems John Murphy MD Cardiology: H er updated medication list for this problem includes: Spironolactone 25 Mg Tablet (Spironolactone) ..... Take 1 tablet by mouth once a day Furosemide 40 Mg Tablet (Furosemide) ..... Take 2 tablet by mouth twice a day Clopidogrel 75 Mg Tablet (Clopidogrel) ..... Take 1 tablet by mouth once a day Nitroglycerin 0.4 Mg Tablet, Sublingual (Nitroglycerin) ..... Dissolve one tablet sublingually every 5 minutes up to three times as needed for chest pain then call ems John Murphy MD Cardiology: H er updated medication list for this problem includes: Atorvastatin 40 Mg Tablet (Atorvastatin) ..... Take 1 tablet by mouth every night John Murphy MD Cardiology: H er updated medication list for this problem includes: Spironolactone 25 Mg Tablet (Spironolactone) ..... Take 1 tablet by mouth once a day Furosemide 40 Mg Tablet (Furosemide) ..... Take 2 tablet by mouth twice a day John Murphy MD Cardiology:This visi t has been a part of the consistent, comprehensive, and ongoing management of the chronic medical condition(s) listed above for the patient. BP today: 167/79 P rior BP: 134/77 (01/04/2024) Labs Reviewed: C reat: 0.8 (12/11/2009) L DL: 136 (09/06/2017) Her updated medication list for this problem includes: Furosemide 40 Mg Tablet (Furosemide) ..... Take 2 tablet by mouth twice a day Orders: C OMPREHENSIVE METABOLIC PANEL, W/EGFR (79804) C BC (INCLUDES DIFF/PLT) (6399) F ERRITIN (457) I ELIF AND TOTAL IRON BINDING CAPACITY (7573) P ROBNP, N TERMINAL (75384) John Murphy MD Cardiology: H er updated medication list for this problem includes: Furosemide 40 Mg Tablet (Furosemide) ..... Take 2 tablet by mouth twice a day Isidro Nunes Cardiology: H er updated medication list for this problem includes: Clopidogrel 75 Mg Tablet (Clopidogrel) ..... Take 1 tablet by mouth once a day Nitroglycerin 0.4 Mg Tablet, Sublingual (Nitroglycerin) ..... Dissolve one tablet sublingually every 5 minutes up to three times as needed for chest pain then call ems Orders: C OMPREHENSIVE METABOLIC PANEL, W/EGFR (48880) C BC (INCLUDES DIFF/PLT) (6399) F ERRITIN (457) I ELIF AND TOTAL IRON BINDING CAPACITY (7573) P ROBNP, N TERMINAL ([id number]) Isidro Nunes Cardiology: B P today: 167/79 P rior BP: 134/77 (01/04/2024) Labs Reviewed: C reat: 0.8 (12/11/2009) L DL: 136 (09/06/2017) Her updated medication list for this problem includes: Furosemide 40 Mg Tablet (Furosemide) ..... Take 2 tablet by mouth twice a day Orders: C OMPREHENSIVE METABOLIC PANEL, W/EGFR (23521) C BC (INCLUDES DIFF/PLT) (6399) F ERRITIN (457) I ELIF AND TOTAL IRON BINDING CAPACITY (7573) P ROBNP, N TERMINAL (01852) [facility] Cardiology: H er updated medication list for this problem includes: Clopidogrel 75 Mg Tablet (Clopidogrel) ..... Take 1 tablet by mouth once a day Orders: C OMPREHENSIVE METABOLIC PANEL, W/EGFR (83175) C BC (INCLUDES DIFF/PLT) (6399) F ERRITIN (457) I ELIF AND TOTAL IRON BINDING CAPACITY (7573) P ROBNP, N TERMINAL (37662) [facility] Cardiology: H er updated medication list for this problem includes: Furosemide 40 Mg Tablet (Furosemide) ..... Take 2 tablet by mouth twice a day Clopidogrel 75 Mg Tablet (Clopidogrel) ..... Take 1 tablet by mouth once a day Nitroglycerin 0.4 Mg Tablet, Sublingual (Nitroglycerin) ..... Dissolve one tablet sublingually every 5 minutes up to three times as needed for chest pain then call ems Orders: C OMPREHENSIVE METABOLIC PANEL, W/EGFR (85816) C BC (INCLUDES DIFF/PLT) (6399) F ERRITIN (457) I ELIF AND TOTAL IRON BINDING CAPACITY (7573) P ROBNP, N TERMINAL (88816) [facility] Cardiology: H er updated medication list for this problem includes: Atorvastatin 40 Mg Tablet (Atorvastatin) ..... Take 1 tablet by mouth every night Orders: C OMPREHENSIVE METABOLIC PANEL, W/EGFR (48729) C BC (INCLUDES DIFF/PLT) (6399) F ERRITIN (457) I ELIF AND TOTAL IRON BINDING CAPACITY (7573) P ROBNP, N TERMINAL ([id number]) [facility] Cardiology: H er updated medication list for this problem includes: Clopidogrel 75 Mg Tablet (Clopidogrel) ..... Take 1 tablet by mouth once a day Nitroglycerin 0.4 Mg Tablet, Sublingual (Nitroglycerin) ..... Dissolve one tablet sublingually every 5 minutes up to three times as needed for chest pain then call ems Orders: C OMPREHENSIVE METABOLIC PANEL, W/EGFR (68129) C BC (INCLUDES DIFF/PLT) (6399) F ERRITIN (457) I ELIF AND TOTAL IRON BINDING CAPACITY (7573) P ROBNP, N TERMINAL (74813) Isidro Nunes Cardiology: H er updated medication list for this problem includes: Furosemide 40 Mg Tablet (Furosemide) ..... Take 2 tablet by mouth twice a day Clopidogrel 75 Mg Tablet (Clopidogrel) ..... Take 1 tablet by mouth once a day Nitroglycerin 0.4 Mg Tablet, Sublingual (Nitroglycerin) ..... Dissolve one tablet sublingually every 5 minutes up to three times as needed for chest pain then call ems Orders: C OMPREHENSIVE METABOLIC PANEL, W/EGFR (85453) C BC (INCLUDES DIFF/PLT) (6399) F ERRITIN (457) I ELIF AND TOTAL IRON BINDING CAPACITY (7573) P ROBNP, N TERMINAL ([id number]) Isidro Nunes Cardiology:This visi t has been a part of the consistent, comprehensive, and ongoing management of the chronic medical condition(s) listed above for the patient. Her updated medication list for this problem includes: Furosemide 40 Mg Tablet (Furosemide) ..... Take 2 tablet by mouth twice a day John Murphy MD Cardiology Isidro Nunes Cardiology: H er updated medication list for this problem includes: Albuterol Sulfate 90 Mcg/actuation Hfa Aerosol Inhaler (Albuterol sulfate) ..... 1 puff using inhaler every four to six hours as directed as needed Albuterol Sulfate 90 Mcg/actuation Hfa Aerosol Inhaler (Albuterol sulfate) Dulera 200-5 Mcg/actuation Hfa Aerosol Inhaler (Mometasone-formoterol) Ipratropium-albuterol 0.5 Mg-3 Mg(2.5 Mg Base)/3 Ml Solution For Nebulization (Ipratropium-albuterol) ..... Every six hours as needed Singulair 10 Mg Tablet (Montelukast) ..... Take 1 by mouth once a day Isidro Nunes Cardiology Isidro Nunes Cardiology: H er updated medication list for this problem includes: Clopidogrel 75 Mg Tablet (Clopidogrel) ..... Take 1 tablet by mouth once a day [facility] Cardiology: H er updated medication list for this problem includes: Atorvastatin 40 Mg Tablet (Atorvastatin) ..... Take 1 tablet by mouth every night [facility] Cardiology: H er updated medication list for this problem includes: Furosemide 40 Mg Tablet (Furosemide) ..... Take 2 tablet by mouth twice a day Clopidogrel 75 Mg Tablet (Clopidogrel) ..... Take 1 tablet by mouth once a day Nitroglycerin 0.4 Mg Tablet, Sublingual (Nitroglycerin) ..... Dissolve one tablet sublingually every 5 minutes up to three times as needed for chest pain then call ems [facility] Cardiology: H er updated medication list for this problem includes: Clopidogrel 75 Mg Tablet (Clopidogrel) ..... Take 1 tablet by mouth once a day Nitroglycerin 0.4 Mg Tablet, Sublingual (Nitroglycerin) ..... Dissolve one tablet sublingually every 5 minutes up to three times as needed for chest pain then call ems [facility] Cardiology: H er updated medication list for this problem includes: Clopidogrel 75 Mg Tablet (Clopidogrel) ..... Take 1 tablet by mouth every day Nitroglycerin 0.4 Mg Tablet, Sublingual (Nitroglycerin) ..... Dissolve one tablet sublingually every 5 minutes up to three times as needed for chest pain then call ems [facility] Cardiology: H er updated medication list for this problem includes: Clopidogrel 75 Mg Tablet (Clopidogrel) ..... Take 1 tablet by mouth every day Furosemide 40 Mg Tablet (Furosemide) ..... Take 1 tablet by mouth twice a day Nitroglycerin 0.4 Mg Tablet, Sublingual (Nitroglycerin) ..... Dissolve one tablet sublingually every 5 minutes up to three times as needed for chest pain then call ems [facility] Cardiology: H er updated medication list for this problem includes: Atorvastatin 40 Mg Tablet (Atorvastatin) ..... Take 1 tablet by mouth every night [facility] Cardiology: B P today: 125/69 P rior BP: 146/74 (06/06/2023) Labs Reviewed: C reat: 0.8 (12/11/2009) L DL: 136 (09/06/2017) Her updated medication list for this problem includes: Furosemide 40 Mg Tablet (Furosemide) ..... Take 1 tablet by mouth twice a day [facility] Cardiology: H er updated medication list for this problem includes: Clopidogrel 75 Mg Tablet (Clopidogrel) ..... Take 1 tablet by mouth every day [facility] Cardiology: H er updated medication list for this problem includes: Clopidogrel 75 Mg Tablet (Clopidogrel) ..... Take 1 tablet by mouth every day Furosemide 40 Mg Tablet (Furosemide) ..... Take 1 tablet by mouth twice a day Nitroglycerin 0.4 Mg Tablet, Sublingual (Nitroglycerin) ..... Dissolve one tablet sublingually every 5 minutes up to three times as needed for chest pain then call ems [facility] Isidro taylorzai Cardiology Isidro medzai Cardiology [facility]:add lasix 4 0 mg in the afternoon , continue lasix 80 mg in am [facility] Isidro medzageraldo Cardiology Isidro Christensenmedzai Cardiology Isidro Ahmedzageraldo Cardiology Isidro Ahmedzai Cardiology Isidro Ahmedzai Cardiology Isidro Christensenmedzai Cardiology Isidro Ahmedzai Cardiology Isidro Ahmedzai Cardiology Isidro medzai Cardiology Isidro Ahmedzai Cardiology Isidro Ahmedzai Cardiology Isidro Ahmedzai Cardiology Isidro Ahmedzai Cardiology Isidro medzai Cardiology Isidro Ahmedzai Cardiology Isidro Ahmedzai Cardiology Isidro Ahmedzai Cardiology Isidro Ahmedzai Cardiology Isidro Ahmedzai Cardiology Isidro Ahmedzai Cardiology Isidro Ahmedzai Cardiology Isidro Ahmedzai Cardiology Isidro Ahmedzai Cardiology Isidro Ahmedzai Cardiology Isidro Ahmedzai Cardiology Isidro Ahmedzai Cardiology Isidro Ahmedzai Cardiology Isidro Ahmedzai Cardiology Isidro Ahmedzai Cardiology Isidro Ahmedzai Cardiology John Murphy MD Cardiology John Murphy MD Cardiology John Murphy MD Cardiology John Murphy MD Cardiology John Murphy MD Cardiology Isidro Ahmedzai Cardiology Isidro Ahmedzai Cardiology Isidro Ahmedzai Cardiology Isidro Ahmedzai Cardiology Isidro Ahmedzai Cardiology Isidro Ahmedzai Cardiology Follow up John ingram MD Cardiology Follow up John ingram MD Cardiology Follow up John ingram MD Cardiology Follow up John ingram MD Cardiology follow up John ingram MD Cardiology follow up John ingram MD Cardiology follow up John ingram MD Cardiology follow up John ingram MD Cardiology follow up John ingram MD Cardiology follow up John ingram MD Cardiology John Murphy MD Cardiology John Murphy MD Cardiology John Murphy MD Cardiology John Murphy MD Cardiology John Murphy MD Cardiology follow up John ingram MD Cardiology follow up John ingram MD Cardiology follow up John ingram MD Cardiology follow up John ingram MD Cardiology follow up John ingram MD Cardiology follow up John ingram MD Cardiology follow up John ingram MD Cardiology follow up Mingicarolyn ingram MD Cardiology follow up Mingicarolyn ingram MD Cardiology follow up :Pt refuses to take any medications, nebulizers or go to the ER. John Murphy MD Cardiology follow up John ingram MD Cardiology follow up John ingram MD Cardiology follow up John ingram MD Cardiology follow up John ingram MD Cardiology follow up John ingram MD Cardiology:Jono more. John barkley MD Cardiology:BP today: 156/77 P rior BP: 166/70 (10/11/2017) H er updated medication list for this problem includes: Aspirin 325 Mg Oral Tablet (Aspirin) ..... One tab. daily Lisinopril 10 Mg Oral Tablet (Lisinopril) ..... One tab twice daily Carvedilol 6.25 Mg Oral Tablet (Carvedilol) ..... One tab. twice daily Lasix 40 Mg Oral Tablet (Furosemide) ..... 1 tablet in the morning. John Murphy MD Cardiology:Jono more, sob. Theodore Murphy MD Cardiology:She had r uptured a blood vessel in her abdomen after having a coughing spasm. Here, they stopped her coumadin for a week. SHe has not resumed her coumadin since. On 12/31/17 she had a blood clot in her rt leg. Stopped coumadin because she is noncompliant with blood checks. WIll not prescribe blood thinning medication due to patient being on multiple non steroidal agents. John Murphy MD Cardiology follow up John ingram MD Cardiology follow up Tongeraldoya Devin ingram MD Cardiology follow up Toniya Devin ingram MD Cardiology follow up Toniya Devin ingram MD Cardiology follow up Toniya Devin ingram MD Cardiology follow up Toniya Devin ingram MD Cardiology follow up:Will check lipid panel. John Murphy MD Cardiology follow up:Uses nebuli zer frequently. John Murphy MD Cardiology follow up Tonjayson ingram MD Cardiology follow up Toniya Devin ingram MD Cardiology Follow up Toniya Devin ingram MD Cardiology Follow up Toniya Devin ingram MD Cardiology Follow up Toniya Devin ingram MD Cardiology Follow up Toniya Devin ingram MD Cardiology Follow up Toniya Devin ingram MD Cardiology Follow up Toniya Devin ingram MD Cardiology Follow up Toniya Devin ingram MD Cardiology Follow up Toniya Devin ingram MD Cardiology Follow up Toniya Devin ingram MD Cardiology Follow up Toniya Devin ingram MD Cardiology Follow up Toniya Devin ingram MD Cardiology Follow up Toniya Devin ingram MD Cardiology Follow up Tonjayson ingram MD Cardiology Tonjayson Murphy MD Cardiology John Murphy MD Cardiology John Murphy MD Cardiology John Murphy MD Cardiology John Murphy MD Cardiology John Murphy MD Cardiology Tonjayson Murphy MD Cardiology John Murphy MD Cardiology John Murphy MD Cardiology John Murphy MD Cardiology Tonjayson Murphy MD Cardiology Tonjayson Murphy MD hfu: H er updated medication list for this problem includes: Singulair 10 Mg Tabs (Montelukast sodium) ..... One tab. daily Pulmonary Functions Reviewed: O 2 sat: 96 (11/19/2014) John Murphy MD post cath John Murphy MD post cath: T he following medications were removed from the medication list: Aspirin 325 Mg Tabs (Aspirin) ..... One tab daily BP today: 138/72 Prior BP: 142/74 (11/25/2009) N uclear Stress Findings: 1. Regadenoson mediated myocardial perfusion study 2 . Normal left ventricular systolic function with a calculated ejection fraction of 55%. 3 . Myocardial scintigraphy demonstrates inferior wall ischemia. (11/13/2009) C ardiac Cath: Normal coronary arteries. Normal left ventricular systolic function with ejection fraction of 50%. Continue aggressive risk factor modifications. [facility] (12/16/2009) H gb: 11.4 (12/11/2009) HCT: 34.4 (12/11/2009) RBC: 4.03 (12/11/2009) WBC: 4.5 (12/11/2009) B UN: 17 (12/11/2009) Creat: 0.8 (12/11/2009) Glucose: 104 (12/11/2009) N a+: 138 (12/11/2009) K+: 4.1 (12/11/2009) Cl: 103 (12/11/2009) John Murphy MD post cath: H er updated medication list for this problem includes: Singulair 10 Mg Tabs (Montelukast sodium) ..... One tab. daily Pulmonary Functions Reviewed: O 2 sat: 98 (2010) John Murphy MD post cath: T he following medications were removed from the medication list: Aspirin 325 Mg Tabs (Aspirin) ..... One tab daily BP today: 138/72 Prior BP: 142/74 (11/25/2009) N uclear Stress Findings: 1. Regadenoson mediated myocardial perfusion study 2 . Normal left ventricular systolic function with a calculated ejection fraction of 55%. 3 . Myocardial scintigraphy demonstrates inferior wall ischemia. (11/13/2009) C ardiac Cath: Normal coronary arteries. Normal left ventricular systolic function with ejection fraction of 50%. Continue aggressive risk factor modifications. [facility] (12/16/2009) H gb: 11.4 (12/11/2009) HCT: 34.4 (12/11/2009) RBC: 4.03 (12/11/2009) WBC: 4.5 (12/11/2009) B UN: 17 (12/11/2009) Creat: 0.8 (12/11/2009) Glucose: 104 (12/11/2009) N a+: 138 (12/11/2009) K+: 4.1 (12/11/2009) Cl: 103 (12/11/2009) John Murphy MD n/p: H er updated medication list for this problem includes: Singulair 10 Mg Tabs (Montelukast sodium) ..... One tab. daily Pulmonary Functions Reviewed: O 2 sat: 90 (11/25/2009) John Murphy MD n/p: H er updated medication list for this problem includes: Aspirin 325 Mg Tabs (Aspirin) ..... One tab daily BP today: 142/74 Prior BP: / () N uclear Stress Findings: 1. Regadenoson mediated myocardial perfusion study 2 . Normal left ventricular systolic function with a calculated ejection fraction of 55%. 3 . Myocardial scintigraphy demonstrates inferior wall ischemia. (11/13/2009) John Murphy MD Date Name PROBNP, N TERMINAL IRON AND TOTAL IRON BINDING CAPACITY FERRITIN CBC (INCLUDES DIFF/P LT) COMPREHENSIVE METABO LIC PANEL, W/EGFR Venous Doppler Bilat eral LE PROBNP, N TERMINAL TSH, free T4, total T3 CBC (INCLUDES DIFF/P LT) LIPID PANEL COMPREHENSIVE METABO LIC PANEL, W/EGFR Arterial Duplex Bi-L ower EX MUGA (LVEF) PROBNP, N TERMINAL LIPID PANEL HEMOGLOBIN A1c CBC (INCLUDES DIFF/P LT) COMPREHENSIVE METABO LIC PANEL, W/EGFR Arterial Duplex Bi-L ower EX Arterial Duplex Bi-L ower EX Complete Echo Venous Doppler Bilat eral LE - Reflux Complete Echo 6 minute walk test DLCO - 94171 FRC - 07285 FVC - 51829 PROBNP, N TERMINAL TSH, 3RD GENERATION W/REFLEX TO FT4 HEMOGLOBIN A1c IRON AND TOTAL IRON BINDING CAPACITY FERRITIN CBC (INCLUDES DIFF/P LT) LIPID PANEL COMPREHENSIVE METABO LIC PANEL, W/EGFR HISTORY OF PROCEDURES Procedure Date Procedure Name Provider Procedure Notes S tatus Complex e/m visit add on John Murphy MD completed EKG John Murphy MD completed Complex e/m visit add on John Murphy MD completed Complex e/m visit add on John Murphy MD completed EKG John Murphy MD completed EKG John Murphy MD completed EKG John Murphy MD completed EKG John Murphy MD completed EKG John Murphy MD completed EKG John Murphy MD completed SNOMED-CT: 450865364 217147 Current Medications Documented John Murphy MD completed SNOMED-CT: 17743279 Physical Exam, Performed: Pulse Exam of Foot John Murphy MD completed SNOMED-CT: 291538339 840348 Current Medications Documented John Murphy MD completed SNOMED-CT: 48194542 Physical Exam, Performed: Pulse Exam of Foot John Murphy MD completed SNOMED-CT: 23672479 Physical Exam, Performed: Pulse Exam of Foot John Murphy MD completed SNOMED-CT: 531595787 099638 Current Medications Documented John Murphy MD completed SNOMED-CT: 14097083 Physical Exam, Performed: Pulse Exam of Foot John Murphy MD completed EKG John Murphy MD completed SNOMED-CT: 898058298 961727 Current Medications Documented John Murphy MD completed SNOMED-CT: 62616321 Physical Exam, Performed: Pulse Exam of Foot John Murphy MD completed SNOMED-CT: 568378974 480631 Current Medications Documented John Murphy MD completed
--- OUTSIDE RECORDS SUMMARY | 2024-11-14 19:58 | XMS_ITS ---
Author Organization [facility] Address [address] [place] [address] Care Team Providers Care Mud Analysis Operator Name Role Phone Marco Miguel Primary Care Provider Rahul Martino [phone] REASON FOR VISIT transfer from [facility] Social History Sex Assigned At : Social History Observation Description Sex Assigned At Female Encounters Encounter Location Date Provider Diagnosis [address] [address] 09/24/2024 Rahul Martino Plan Of Treatment No Information Progress Notes * Kamilah HALE IVDOB:1950 (74 yo F)Acc No.[id number]:09/24/2024 UNLOCKED PROGRESS NOTE Progress Notes Patient: Kamilah IZAGUIRRE IV Provider: Abilio Martino :1950 A ge:74 Y S ex:Female Date:09/24/2024 Address:[address] [place] [address], [address] [facility] Pcp:Marco Miguel Subjective: * Chief Complaints: * 1 . transfer from [facility]. * Medical History: Objective: * Vitals: Assessment: Plan: * Treatment: * * Electronic signature of Montez Martino , [id number] on 11/14/2024 at 07:57 PM CDT Sign off status: Pending * Provider: Abilio Martino Date: 0 09/24/2024 Generated for Maurisio antonio/Faxing/eTransmitting on: 0 11/14/2024 07:57 PM CDT
[2024-11-14 20:06] VITALS: PULSE 89
--- NOTE | 2024-11-14 20:16 | ECG_ITS ---
Test Date: 2024-11-14 21:35:28 Measurements Intervals [place] Rate: 86 P: 66 MA: 178 QRS: -36 QRSD: 122 T: 116 QT: 409 QTc: 492 Interpretive Statements SINUS RHYTHM LEFT AXIS DEVIATION INTRAVENTRICULAR CONDUCTION DELAY CANNOT R/O SEPTAL INFARCT, AGE INDETERMINATE ST-T WAVE ABNORMALITY IN HIGH LATERAL LEADS- CONSIDER ISCHEMIA BASELINE ARTIFACT- I, II, III, AVR, AVL, AVF, V1-V6 ABNORMAL ECG No previous ECG available for comparison Electronically Signed On 11-15-2024 07:22:16 CDT by Asael Conti D.O.
[2024-11-14 21:03] LABS: Basophils Percent Auto 0.4 % (0.2-1.2); Eosinophils Absolute Auto 0.1 K/mm3 (0-0.3); Eosinophils Percent Auto 1.3 % (0-4.4); Hematocrit 38.5 % (37.0-47.0); Hemoglobin 12.1 g/dL (12.0-15.0); Immature Granulocyte Absolute 0.05 K/mm3 (0.00-0.031); Immature Granulocyte Percent A 0.5 % (0-0.5); Lymphocytes Percent Auto 10.4 % (18.3-44.2); Mean Corpuscular HGB Conc 31.4 g/dl (32-36); Mean Corpuscular Hemoglobin 28.9 pg (26-34); Mean Corpuscular Volume 92.1 fl (80-100); Mean Platelet Volume 8.8 fl (7.4-10.4); Monocytes Absolute Auto 0.6 K/mm3 (0.1-0.6); Monocytes Percent Auto 6.3 % (2.6-8.5); Neutrophils Absolute Auto 7.8 K/mm3 (1.3-6.7); Neutrophils Percent Auto 81.1 % (45.5-73.1); Platelet Count Result 286 k/mm3 (150-375); Red Blood Count 4.18 M/mm3 (4.2-5.4); Red Cell Distribution Width 14.9 % (11.5-14.5); White Blood Count 9.7 K/mm3 (4.5-10.0)
[2024-11-14 21:10] LABS: Add Urine Microscopic? YES; Appearance Urine Clear (Clear); Bacteria Urine 4+ /hpf; Bilirubin Urine Negative (Negative); Blood Urine Trace (Negative); Color Urine Yellow (Yellow); Glucose Urine UA Negative (Negative); Ketones Urine Negative (Negative); Leukocyte Esterase Ur 2+ LEU/UL (Negative); Nitrate Urine Negative (Negative); Non Pathogenic Casts 0-2; Protein Urine Negative (Negative); Specific Grav Ur 1.013 (1.001-1.035); Squamous Epithelial Cell Urine None Seen /hpf (Few); pH Urine 5.5 (5.0-9.0)
[2024-11-14 21:13] LABS: Alanine Aminotransferase 25 U/L (6-35); Albumin Level 4.1 g/dL (3.5-5.1); Alkaline Phosphatase 235 U/L (38-126); Anion Gap 10 mmol/L (4-12); Aspartate Amino Transferase 41 U/L (14-36); Bilirubin,Total 0.4 mg/dL (0.2-1.3); Blood Urea Nitrogen 29 mg/dL (7-17); Calcium 9.7 mg/dL (8.4-10.2); Carbon Dioxide 25 mmol/L (22-30); Chloride 98 mmol/L (98-107); Estimated CRCL calculation 26 ml/min; Estimated Glomerular Filt Rate 28; Glucose 130 mg/dL (65-110); Potassium 3.6 mmol/L (3.4-5.0); Sodium 133 mmol/L (137-145); Total Protein 7.8 g/dL (6.3-8.2)
[2024-11-14 21:49] VITALS: BP 141/72; PULSE 89; RESP 18; O2SAT 98
--- OUTSIDE RECORDS SUMMARY | 2024-11-14 22:20 | XMS_ITS | CONTINUITY OF CARE DOCUMENT ---
Author Name francia, lakiaser Address Unknown Organization [facility] Address [address] [place] [address] Phone [phone] Care Team Providers Care Telecasting Technician Name Role Phone Jeffrey HOLLEY, John Unavailable BRIAN APODACA NP Unavailable BRIAN APODACA NP [...] In-person encounter Office Visit John Murphy MD [facility] Cardiology examination - In-person encounter Office Visit John Murphy MD [facility] Shortness of breath - In-person encounter Office Visit John Murphy MD [facility] Cough - In-person encounter Office Visit John Murphy MD [facility] - In-person encounter Office Visit John Murphy MD [facility] - In-person encounter Office Visit John Murphy MD [facility] ClaudicationPeripheral artery disease, mild - In-person encounter Office Visit John Murphy MD [facility] CAD--cath mild CAD, presevered EF, ardiomyopathy -Ef nlDeconditioning- related to recent hospitalization - In-person encounter Office Visit John Murphy MD [facility] CAD--cath mild CAD, presevered EF, 05/2022 - In-person encounter Office Visit John Murphy MD [facility] - In-person encounter Office Visit John Murphy MD [facility] OFFICE - In-person encounter Office Visit John Murphy MD [facility] - In-person encounter Office Visit John Murphy MD [facility] - In-person encounter Office Visit John Murphy MD [facility] - In-person encounter Office Visit John Murphy MD [facility] EdemaWheezing - In-person encounter Office Visit John Murphy MD [facility] - In-person encounter Office Visit John Murphy MD [facility] - In-person encounter Office Visit John Murphy MD [facility] - In-person encounter Office Visit John Murphy MD [facility] - In-person encounter Office Visit John Murphy MD [facility] - In-person encounter Office Visit John Murphy MD [facility] - In-person encounter Office Visit John Murphy [facility] - In-person encounter Office Visit John Murphy MD [facility] DVT - In-person encounter Office Visit John Murphy MD [facility] - In-person encounter Office Visit John Murphy MD [facility] - In-person encounter Office Visit John Murphy MD [facility] - In-person encounter Office Visit John Murphy MD [facility] CAD--cath mild CAD, presevered EF, 3Cardiomyopathy -Ef nl - In-person encounter Office Visit John Murphy MD [facility] Hyperlipidemia - In-person encounter Office Visit John Murphy MD [facility] CAD--cath mild CAD, presevered EF, 3Cardiomyopathy -Ef nlDiastolic CHFHyperlipidemiaHTN essential - In-person encounter Office Visit John Murphy MD [facility] CHEST PAIN-11/06 NUC INF WALL ISCHEMIACAD--cath mild CAD, presevered EF, 05/2022 - In-person encounter Office Visit John Murphy MD [facility] - In-person encounter Office Visit John Murphy MD [facility] ARTHRITISASTHMA VITAL SIGNS Date Observation Value [...] elif Carreon oxygen saturation, oximetry 97 % [facility] pulse rate 87 /min [facility] blood pressure, cuff size regular Dash macarena Carreon weight E&M 237.4 [lb_av] [facility] height E&M 64 [in_i] [facility] Body Mass Index (Ratio) 40.33 kg/m2 Thomas Murphy MD blood pressure, diastolic 77 mm[Hg] Roxanne Dior blood pressure, systolic 134 mm[Hg] Vip in [facility], oximetry 96 % [facility]h [facility] respiratory rate E&M 16 /min Khanh M w[facility]yssa pulse rate 78 /min [facility]h [facility] blood pressure, cuff size regular Roxanne Dior weight E&M 235 [lb_av] Khanh [facility] height E&M 64 [in_i] [facility] Body Mass Index (Ratio) 39.48 kg/m2 Isidro Nunes blood pressure, cuff size regular Fa [facility] blood pressure, diastolic 69 mm[Hg] [facility] blood pressure, systolic 125 mm[Hg] [facility] oxygen saturation, oximetry 96 % [facility] pulse rate 83 /min [facility] weight E&M 230 [lb_av] [facility] respiratory rate E&M 16 /min [facility] height E&M 64 [in_i] [facility] Body Mass Index (Ratio) 41.88 kg/m2 [facility] pulse rate 90 /min [facility] blood pressure, cuff size regular [facility] blood pressure, diastolic 74 mm[Hg] [facility] blood pressure, systolic 146 mm[Hg] [facility] oxygen saturation, oximetry 94 % [facility] respiratory rate E&M 16 /min [facility] weight E&M 244 [lb_av] [facility] height E&M 64 [in_i] [facility] Body Mass Index (Ratio) 39.92 kg/m2 [facility] nelida [facility] blood pressure, diastolic 74 mm[Hg] susanna Anderson [...] Murphy MD respiratory rate E&M 16 /min Meredith Si ms oxygen saturation, oximetry 95 % Meredith Meza pulse rate 82 /min Meredith Meza blood pressure, cuff size regular Sa ra Meza weight E&M 244 [lb_av] Meredith Meza height E&M 64 [in_i] Meredith Meza Body Mass Index (Ratio) 42.91 kg/m2 Isidro Manju blood pressure, resting Yes [place] [facility] [place] blood pressure, diastolic 90 mm[Hg] Li nkLogic blood pressure, systolic 160 mm[Hg] Hortencia kLogic blood pressure, diastolic 90 mm[Hg] Ma rsha [place] blood pressure, systolic 160 mm[Hg] [facility] [place] oxygen saturation, oximetry 95 % [...] er height E&M 64 [in_i] Yvonne Rainey [facility] Body Mass Index (Ratio) 40.85 kg/m2 Thomas Murphy MD blood pressure, diastolic 77 mm[Hg] Cy luda Anglin blood pressure, systolic 170 mm[Hg] Lucinda ashish Anglin blood pressure, cuff size regular Cy tammieksarie Anglin pulse rate 102 /min Dayan Campbel [...] l Body Mass Index (Ratio) 41.53 kg/m2 Tohmas Murphy MD blood pressure, cuff size regular [...] sofy weight E&M 239 [lb_av] Maureen Johnston [facility] height E&M 64 [in_i] Maureen Johnston [facility] Body Mass Index (Ratio) 24.20 [...] mm[Hg] Dac ia Brant oxygen saturation, oximetry 97 % Do Brant [...] as % of total hemoglobin 5.3 % [facility] 0 LDL cholesterol, serum 136 mg/dL [facility] 5 anion gap, serum 9 [facility] 5 calcium, serum 9.2 mg/dL [facility] Leonardo 5 blood glucose, fasting 104 mg/dL [facility] Leonardo 5 creatinine, serum 0.8 mg/dL [facility] Leonardo 5 urea nitrogen, blood 17 mg/dL [facility] Leonardo 5 carbon dioxide, serum, total 31 mmol/L [facility] Leonardo 5 chloride, serum 103 mmol/L [facility] Leonardo 5 potassium, serum 4.1 mmol/L [facility] Leonardo 5 sodium, serum 138 mmol/L [facility] Leonardo 5 platelet count 243 10*3/uL Alannah Patterson 5 red blood cell distribution width 13.4 % Alannah Patterson 5 mean corpuscular hemoglobin concentration, RBC 33.3 g/dL Alannah Patterson 5 mean corpuscular hemoglobin, RBC 28.4 pg Alannah Patterson 5 mean corpuscular volume, RBC 85.3 fL Alannah Patterson 5 hematocrit, blood 34.4 % Alannah Patterson 5 hemoglobin, blood 11.4 g/dL [facility] Leonardo erythrocyte (RBC) count 4.03 10*6/mm3 Alannah [...] 1 tablet by mouth once daily - [facility] atorvastatin 40 mg tablet active TAKE 1 TABLET BY MOUTH EVERY NIGHT [facility] Plavix 75 mg tablet completed Take 1 tablet by mouth once a day - [facility] Dulera 200-5 mcg/actuation HFA aerosol inhaler [...] shot a month - Do Brant butalbital-acetam dvem-mog-bms 23-433-77-30 mg capsule completed capsule by mouth twice [...] - Kade Madera RN per bottle ENABLEX [id number] completed 15mg 1 daily - Kade Madera [...] revi ewed - no changes required John Murpyh MD physical exercise, f requency, days per [...] Payer name Policy type / Coverage type [employer] red alliance party ID [facility] MEDICAID (2) Medicaid [id number] ADVANCE DIRECTIVES Name Date DISCUSSED - NO DECISION MADE TREATMENT PLAN Date Name Performer [id number],S, Isidro Ferminmedza i [id number],S, Isidro Ferminmedza i [id number],S, Isidro Ahmedza i [id number],S, Isidro Ahmedza i [id number],S, Isidro Ahmedza i [id number],S, Isidro Ahmedza i [id number],S, Isidro Ahmedza i [id number],S, Isidro Ahmedza i [id number],S, Isidro Ahmedza i [id number],S, Isidro Ahmedza i [id number],S, Isidro Ahmedza i [id number],S, Isidro Ahmedza i [id number],S, Isidro Ahmedza i [id number],S, Isidro Ahmedza i [id number],S, Isidro Ahmedza i [id number],S, Isidro Ahmedza i [id number],S, Isidro Ahmedza i [id number],S, Isidro Ahmedza i [id number],S, Isidro Ahmedza i [id number],S, Isidro Ahmedza i [id number],S, Isidro Ahmedza i [id number],S, Isidro Ahmedza i [id number],S, Isidro Ahmedza i [id number],S, Isidro Ahmedza i [id number],S, Isidro Ahmedza i [id number],S, Isidro Ahmedza i [id number],S, Isidro Ahmedza i [id number],S, Isidro Ahmedza i [id number],S, Isidro Ahmedza i [id number],S, John Murphy MD [id number],S, John Murphy MD [id number],W, John Murphy MD [id number],S, Jhon Murphy MD [id number],S, John Murphy MD [id number],S, Isidro Juanitasarahy i [id number],S, Isidro Negro i [id number],S, Isidro Tom i [id number],S, Isidro Tom i [id number],S, Isidro Tom i [id number],S, Isidro Ferminjermaine i Cardiology: H er updated [...] day Orders: C OMPREHENSIVE METABOLIC PANEL, W/EGFR (84605) C BC (INCLUDES DIFF/PLT) (6399) F ERRITIN (457) I ELIF AND TOTAL IRON BINDING CAPACITY (7573) P ROBNP, N TERMINAL (05614) John Murphy MD Cardiology: H er updated [...] ems Orders: C OMPREHENSIVE METABOLIC PANEL, W/EGFR (05767) C BC (INCLUDES DIFF/PLT) (6399) F ERRITIN (457) I ELIF AND TOTAL IRON BINDING CAPACITY (7573) P ROBNP, N TERMINAL (00370) Isidro Nunes Cardiology: B P today: 167/79 P rior BP: 134/77 (01/04/2024) Labs Reviewed: C reat: 0.8 (12/11/2009) L DL: 136 (09/06/2017) Her updated medication list for this problem includes: Furosemide 40 Mg Tablet (Furosemide) ..... Take 2 tablet by mouth twice a day Orders: C OMPREHENSIVE METABOLIC PANEL, W/EGFR (56734) C BC (INCLUDES DIFF/PLT) (6399) F ERRITIN (457) I ELIF AND TOTAL IRON BINDING CAPACITY (7573) P ROBNP, N TERMINAL (34669) [facility] Cardiology: H er updated medication list for this problem includes: Clopidogrel 75 Mg Tablet (Clopidogrel) ..... Take 1 tablet by mouth once a day Orders: C OMPREHENSIVE METABOLIC PANEL, W/EGFR (02082) C BC (INCLUDES DIFF/PLT) (6399) F ERRITIN (457) I ELIF AND TOTAL IRON BINDING CAPACITY (7573) P ROBNP, N TERMINAL (22858) [facility] Cardiology: H er updated medication list for [...] ems Orders: C OMPREHENSIVE METABOLIC PANEL, W/EGFR (10138) C BC (INCLUDES DIFF/PLT) (6399) F ERRITIN (457) I ELIF AND TOTAL IRON BINDING CAPACITY (7573) P ROBNP, N TERMINAL (51079) [facility] Cardiology: H er updated medication list for this problem includes: Atorvastatin 40 Mg Tablet (Atorvastatin) ..... Take 1 tablet by mouth every night Orders: C OMPREHENSIVE METABOLIC PANEL, W/EGFR (07532) C BC (INCLUDES DIFF/PLT) (6399) F ERRITIN (457) I ELIF AND TOTAL IRON BINDING CAPACITY (7573) P ROBNP, N TERMINAL (65919) [facility] Cardiology: H er updated medication list for this problem includes: Clopidogrel 75 Mg Tablet (Clopidogrel) ..... Take 1 tablet by mouth once a day Nitroglycerin 0.4 Mg Tablet, Sublingual (Nitroglycerin) ..... Dissolve one tablet sublingually every 5 minutes up to three times as needed for chest pain then call ems Orders: C OMPREHENSIVE METABOLIC PANEL, W/EGFR (61474) C BC (INCLUDES DIFF/PLT) (6399) F ERRITIN (457) I ELIF AND TOTAL IRON BINDING CAPACITY (7573) P ROBNP, N TERMINAL (61133) Isidro Nunes Cardiology: H er updated medication [...] ems Orders: C OMPREHENSIVE METABOLIC PANEL, W/EGFR (26275) C BC (INCLUDES DIFF/PLT) (6399) F ERRITIN (457) I ELIF AND TOTAL IRON BINDING CAPACITY (7573) P ROBNP, N TERMINAL (84354) Isidro Nunes Cardiology:This visi t has been [...] 1 tablet by mouth once a day [facility] Cardiology: H er updated medication list for this problem includes: Atorvastatin 40 Mg Tablet (Atorvastatin) ..... Take 1 tablet by mouth every night [facility] Cardiology: H er updated medication list for [...] needed for chest pain then call ems [facility] Cardiology: H er updated medication list for this problem includes: Clopidogrel 75 Mg Tablet (Clopidogrel) ..... Take 1 tablet by mouth once a day Nitroglycerin 0.4 Mg Tablet, Sublingual (Nitroglycerin) ..... Dissolve one tablet sublingually every 5 minutes up to three times as needed for chest pain then call ems [facility] Cardiology: H er updated medication list for this problem includes: Clopidogrel 75 Mg Tablet (Clopidogrel) ..... Take 1 tablet by mouth every day Nitroglycerin 0.4 Mg Tablet, Sublingual (Nitroglycerin) ..... Dissolve one tablet sublingually every 5 minutes up to three times as needed for chest pain then call ems [facility] Cardiology: H er updated medication list for this problem includes: Clopidogrel 75 Mg Tablet (Clopidogrel) ..... Take 1 tablet by mouth every day Furosemide 40 Mg Tablet (Furosemide) ..... Take 1 tablet by mouth twice a day Nitroglycerin 0.4 Mg Tablet, Sublingual (Nitroglycerin) ..... Dissolve one tablet sublingually every 5 minutes up to three times as needed for chest pain then call ems [facility] Cardiology: H er updated medication list for this problem includes: Atorvastatin 40 Mg Tablet (Atorvastatin) ..... Take 1 tablet by mouth every night [facility] Cardiology: B P today: 125/69 P rior BP: 146/74 (06/06/2023) Labs Reviewed: C reat: 0.8 (12/11/2009) L DL: 136 (09/06/2017) Her updated medication list for this problem includes: Furosemide 40 Mg Tablet (Furosemide) ..... Take 1 tablet by mouth twice a day [facility] Cardiology: H er updated medication list for this problem includes: Clopidogrel 75 Mg Tablet (Clopidogrel) ..... Take 1 tablet by mouth every day [facility] Cardiology: H er updated medication list for this problem includes: Clopidogrel 75 Mg Tablet (Clopidogrel) ..... Take 1 tablet by mouth every day Furosemide 40 Mg Tablet (Furosemide) ..... Take 1 tablet by mouth twice a day Nitroglycerin 0.4 Mg Tablet, Sublingual (Nitroglycerin) ..... Dissolve one tablet sublingually every 5 minutes up to three times as needed for chest pain then call ems [facility] Isidro taylorzai Cardiology Isidro medzai Cardiology [facility]:add lasix 4 0 mg in the afternoon , continue lasix 80 mg in am [facility] Isidro medzageraldo Cardiology Isidro Christensenmedzai Cardiology Isidro Ahmedzageraldo Cardiology Isidro Ahmedzai Cardiology Isidro Ahmedzai Cardiology Isidro Christensenmedzai Cardiology Isidro Ahmedzai Cardiology Isidro Ahmedzai Cardiology Isidro medzai Cardiology Isidro Ahmedzai Cardiology Isidro Ahmedzai Cardiology Isidro Ahmedzai Cardiology Isidro Ahmedzai Cardiology Isidro medzai Cardiology Isidro Ahmedzai Cardiology Isidro Ahmedzai Cardiology Isidro Ahmedzai Cardiology Iisdro Ahmedzai Cardiology Isidro Ahmedzai Cardiology Isidro Ahmedzai [...] MD Cardiology John Murphy MD Cardiology John Mruphy MD Cardiology John Murphy MD Cardiology follow [...] Murphy MD Cardiology John Murphy MD Cardiology oJhn Murphy MD Cardiology John Murphy MD Cardiology [...] of 50%. Continue aggressive risk factor modifications. [facility] (12/16/2009) H gb: 11.4 (12/11/2009) HCT: 34.4 [...] of 50%. Continue aggressive risk factor modifications. [facility] (12/16/2009) H gb: 11.4 (12/11/2009) HCT: 34.4 [...] Echo 6 minute walk test DLCO - 62469 FRC - 14216 FVC - 81896 PROBNP, N TERMINAL TSH, 3RD GENERATION W/REFLEX [...] completed EKG John Murphy MD completed SNOMED-CT: 851293532 [id number] Current Medications Documented John Murphy MD completed SNOMED-CT: 73387791 Physical Exam, Performed: Pulse Exam of Foot John Murphy MD completed SNOMED-CT: 404721560 729357 Current Medications Documented John Murphy MD completed SNOMED-CT: 24936643 Physical Exam, Performed: Pulse Exam of Foot John Murphy MD completed SNOMED-CT: 58729013 Physical Exam, Performed: Pulse Exam of Foot John Murphy MD completed SNOMED-CT: 094488758 109654 Current Medications Documented John Murphy MD completed SNOMED-CT: 70754656 Physical Exam, Performed: Pulse Exam of Foot John Murphy MD completed EKG John Murphy MD completed SNOMED-CT: 877458478 975739 Current Medications Documented John Murphy MD completed SNOMED-CT: 20657040 Physical Exam, Performed: Pulse Exam of Foot John Murphy MD completed SNOMED-CT: 578048340 857674 Current Medications Documented John Murphy MD completed
[2024-11-14 22:38] LABS: Fractional Inspired Oxygen 21 %; HCO3 VBG 26.3 mEq/l (24.0-30.0); PCO2 VBG 40.2 mmHg (42.0-48.0); PO2 VBG 50.4 mmHg (35.0-45.0)
[2024-11-14 22:42] LABS: pH VBG 7.434 (7.300-7.400)
[2024-11-14 22:45] LABS: NT Pro B Type Natriuretic Pept 232 pg/mL (19.9-100)
[2024-11-14 23:15] VITALS: BP 149/66; PULSE 87; RESP 18; O2SAT 96
--- NOTE | 2024-11-14 23:19 | ED.WEAKNESS ---
HPI - Weakness General Chief complaint: Weakness Stated complaint: Weakness Time Seen by Provider: 11/14/24 22:12 History of Present Illness HPI Narrative: 74-year-old female presenting to the emergency department with her family members for concerns of not ambulating or walking. Patient has a history of coronary artery disease, congestive heart failure, hypertension, asthma, debility with normal ambulation with a walker. Patient states that she is having pain in her left hip and family members note that she has been complaining about it more often. Denies any new falls but states that several months ago she had another fall after her previous hip fracture that was repaired with a troy in her femur. She is not seek medical attention again the images during that time. Since then she has been using Tylenol frequently according to the family members and still complaining of pain. For last days she has been having difficulty ambulating and refusing to get up. Patient denies any complaints at this time, denies any nausea, vomiting, headache, vision changes. No reported falls or head trauma. She is not on any anticoagulation. Patient herself is usually mobile with a walker, and family states that she has refused to try and get up today from pain. Denies any neuropathy, good distal range of motion, patient is hesitant to move her hip and states that is hurting her more than usual. Family members are concerned that they were not able to take care of her and given her level mobility think she needs rehabilitation but would not like her in a intermediate. Related Data Home Medications ?Medication ?Instructions ?Recorded ?Confirmed ?Last Taken ?Type albuterol sulfate 90 mcg/actuation 1 inhalation inhalation Q4H 06/11/19 11/15/24 Unknown History aerosol inhaler (Ventolin HFA) furosemide 40 mg tablet 40 mg PO QAM 06/11/19 11/15/24 Unknown History montelukast 10 mg tablet 10 mg PO DAILY 06/11/19 11/15/24 Unknown History (Singulair) nitroglycerin 0.4 mg sublingual 0.4 mg sublingual Q5M PRN chest 06/11/19 11/15/24 Unknown History tablet pain buspirone 15 mg tablet 15 mg PO BID 06/13/19 11/15/24 Unknown History ondansetron HCl 4 mg tablet 4 mg PO Q8H 06/13/19 11/15/24 Unknown History aspirin 81 mg tablet,delayed 81 mg PO DAILY 11/15/24 11/15/24 Unknown History release atorvastatin 40 mg tablet 40 mg PO DAILY 11/15/24 11/15/24 Unknown History baclofen 10 mg tablet 10 mg PO Q8H PRN muscle spasm 11/15/24 11/15/24 Unknown History luhfwpxusu-xoxeshvvlwbdq-xlmhmybm 1 tablet PO Q6H PRN pain 11/15/24 11/15/24 Unknown History 50 mg-325 mg-40 mg tablet clopidogrel 75 mg tablet 75 mg PO DAILY 11/15/24 11/15/24 Unknown History cyclobenzaprine 10 mg tablet 10 mg PO DAILY 11/15/24 11/15/24 Unknown History ferrous sulfate 325 mg (65 mg 325 mg PO DAILY 11/15/24 11/15/24 Unknown History iron) tablet (FeroSul) gabapentin 600 mg tablet 600 mg PO TID 11/15/24 11/15/24 Unknown History hydrocodone 10 mg-acetaminophen 1 tablet PO DAILY PRN pain 11/15/24 11/15/24 Unknown History 325 mg tablet loperamide 2 mg capsule 2 mg PO DAILY 11/15/24 11/15/24 Unknown History mometasone-formoterol HFA 200 2 inh inhalation Q12H 11/15/24 11/15/24 Unknown History mcg-5 mcg/actuation aerosol inhaler (Dulera) pantoprazole 40 mg tablet,delayed 40 mg PO DAILY 11/15/24 11/15/24 Unknown History release potassium chloride 20 mEq 20 meq PO DAILY 11/15/24 11/15/24 Unknown History tablet,extended release(part/cryst) sertraline 100 mg tablet 100 mg PO DAILY 11/15/24 11/15/24 Unknown History Allergies Allergy/AdvReac Type Severity Reaction Status Date / Time Penicillins Allergy Mild Rash Verified 06/13/19 14:34 Review of Systems Review of Systems: As reviewed above in [facility] Past Medical History Medical History DVT (deep venous thrombosis) Asthma Social History Social History Smoking status: Never smoker Alcohol intake: never Substance use: never Do You Feel Safe in your Home?: Yes Lack of Transportation: No Lack of Food: Never True Current Housing: I Have Housing Concerned About Future Housing: No Difficulty Paying Gas/Electric Bills: No Difficulty Paying for Meds: No Currently Unemployed: No Education: Grade School Difficulty w/ Childcare or Family Care: No Spiritual care concerns: No Exam Narrative: GENERAL: Elderly, obese, not any distress HEAD: [Normocephalic, atraumatic.] EYES: [PERRLA and EOMI.] ENT: Nares clear, no rhinorrhea or epistaxis. Mucous membranes moist. NECK: Supple. CHEST: [Clear to auscultation. No respiratory distress.] HEART: [Regular rate and rhythm]. No murmur heard. [Normal peripheral pulses.] ABDOMEN: [Soft, nondistended], [nontender], [No rigidity or guarding] EXTREMITIES: Bilateral lower extremities with lymphedema, no pitting edema, varicosities noted. Plantar and dorsiflexion 5/5 bilaterally, able to raise the right leg without difficulty, patient refusing to raise the left leg secondary to pain. Pain reproducible palpation over lateral hip. No new skin changes or overlying deformity. No shortening or external rotation. No upper extremity injuries. SKIN: Warm, dry, no rash. Surgical scars over the bilateral legs old NEURO: [No focal deficits]. Alert and oriented [x3.] PSYCH: [Normal mood and affect.] Course Vital Signs Vital signs: Vital Signs Temperature 36.4 C L 11/14/24 19:58 Pulse Rate 91 11/14/24 19:58 Respiratory Rate 19 11/14/24 19:58 Blood Pressure 125/72 11/14/24 19:58 Pulse Oximetry 98 11/14/24 19:58 Oxygen Delivery Room Air 11/14/24 19:58 Temperature 36.3 C L 11/15/24 04:59 Pulse Rate 80 11/15/24 04:59 Respiratory Rate 20 11/15/24 04:59 Blood Pressure 140/60 11/15/24 04:59 Pulse Oximetry 96 11/15/24 04:59 Oxygen Delivery Room Air 11/14/24 19:58 MDM - Weakness MDM Narrative Medical decision making narrative: 74-year-old female presenting to the emergency department for refusing to ambulate. Patient normally walks with a walker and has a history of left-sided hip repair with a femur troy from previous fracture. She has fallen on that hip over a month ago but not sought medical attention and has been taking Tylenol for pain since. She normally walks with some difficulty and pain but pain got worse today and she has been refusing to walk. She denies any new falls or injuries, no head trauma or blood thinner use. She has strong symmetric pulses, lymphedema bilateral legs, no new trauma or injuries appreciated. No overlying skin changes. Plantar dorsiflexion at the ankles are full, able to raise the right leg without difficulty but the left leg she refuses to lift secondary to pain. Pain reproducible in the left hip region. Patient's vital signs reassuring without any tachycardia, fever, hypoxia or blood pressure concerns. Given her fall over a month ago with previous repair could potentially be an occult fracture or dislocation. Other potential causes such as urinary infection, electrolyte abnormalities, dehydration also possible and contributing. Family members do not believe they can take care for and given her mobility issues think she needs aggressive rehab but do not want her placed into a intermediate. CBC, CMP, BNP, urinalysis. Chest x-ray, pelvis and hip x-rays ordered. Patient's hip x-ray shows likely periprosthetic fracture of the greater and lesser trochanteric and left iliac bone. Discussed the case with the on-call orthopedic surgeon Dr. Leach who states given the chronicity of patient's injury and ambulatory status no acute interventions or consultation is warranted. Patient will have to follow-up outpatient with her orthopedic surgeon. Given patient's level of debility and refusal to ambulate at this time secondary to pain as well as findings of urinary tract infection and potential GUERO on laboratory studies she will be admitted for PT, OT, care coordination and will follow-up outpatient upon discharge. Patient care was discussed with the hospitalist Dr. Holcomb who accepted the patient to the hospital at this time. Family members at bedside were made aware and patient's was admitted. Medical Records Attestation: I reviewed the patient's medical records. Lab Data Attestation: I reviewed the patient's lab results. 11/14/24 20:53 11/14/24 20:54 Labs: Lab Results 11/14/24 11/14/24 11/14/24 Range/Units 20:52 20:53 20:54 WBC 9.7 (4.5-10.0) K/mm3 RBC 4.18 L (4.2-5.4) M/mm3 Hgb 12.1 (12.0-15.0) g/dL Hct 38.5 (37.0-47.0) % MCV 92.1 (80-100) fl MCH 28.9 (26-34) pg MCHC 31.4 L (32-36) g/dl RDW 14.9 H (11.5-14.5) % Plt Count 286 (150-375) k/mm3 MPV 8.8 (7.4-10.4) fl Immature Gran % (Auto) 0.5 (0-0.5) % Neut % (Auto) 81.1 H (45.5-73.1) % Lymph % (Auto) 10.4 L (18.3-44.2) % [place] % (Auto) 6.3 (2.6-8.5) % Eos % (Auto) 1.3 (0-4.4) % Baso % (Auto) 0.4 (0.2-1.2) % Lymph # (Auto) 1.00 (0.9-3.2) K/mm3 [place] # (Auto) 0.6 (0.1-0.6) K/mm3 Eos # (Auto) 0.1 (0-0.3) K/mm3 Baso # (Auto) 0.0 (0.0-0.1) K/mm3 Abs Immat Gran (auto) 0.05 H (0.00-0.031) K/mm3 Absolute Neuts (auto) 7.8 H (1.3-6.7) K/mm3 Absolute Nucleated RBC 0.000 (0.0-0.012) K/mm3 Nucleated RBC % 0.0 (0.0-0.2) % Sodium 133 L (137-145) mmol/L Potassium 3.6 (3.4-5.0) mmol/L Chloride 98 (98-107) mmol/L Carbon Dioxide 25 (22-30) mmol/L Anion Gap 10 (4-12) mmol/L BUN 29 H (7-17) mg/dL Creatinine 1.76 H (0.7-1.0) mg/dL Estim Creat Clear Calc 26 ml/min Estimated GFR 28 L (59 - ) Glucose 130 H (65-110) mg/dL Calcium 9.7 (8.4-10.2) mg/dL Total Bilirubin 0.4 (0.2-1.3) mg/dL AST 41 H (14-36) U/L ALT 25 (6-35) U/L Alkaline Phosphatase 235 H (38-126) U/L NT-Pro-B Natriuret Pep 232 H (19.9-100) pg/mL Total Protein 7.8 (6.3-8.2) g/dL Albumin 4.1 (3.5-5.1) g/dL Urine Color Yellow (Yellow) Urine Appearance Clear (Clear) Urine pH 5.5 (5.0-9.0) Ur Specific [place] 1.013 (1.001-1.035) Urine Protein Negative (Negative) mg/dL Urine Glucose (UA) Negative (Negative) mg/dL Urine Ketones Negative (Negative) mg/dL Ur Blood (Man) Trace (Negative) Urine Nitrate Negative (Negative) Urine Bilirubin Negative (Negative) Urine Urobilinogen 1.0 (<2.0) mg/dL Leukocyte Esterase Rfl 2+ H (Negative) KASSIDY/UL Urine RBC 3-5 H (0-2) /hpf Urine WBC 11-20 H (0-3) /hpf Ur Squamous Epith Cells None seen (Few) /hpf Urine Bacteria 4+ H /hpf Urine Casts 0-2 ABG Data ABG results: 11/14/24 22:32 VBG pH 7.434 H* VBG pCO2 40.2 L VBG pO2 50.4 H VBG HCO3 26.3 O2 Delivery Device Not Reportable O2 Liters/Min Not Reportable FiO2 21 Imaging Data Attestation: I personally reviewed and interpreted this imaging study as follows: My impression: Impressions Chest X-Ray 11/14/24 21:37 IMPRESSION: Mild pulmonary vascular congestion, without focal infiltrate. Hip/Pelvis X-Ray 11/14/24 23:16 IMPRESSION: Likely periprosthetic fracture of the greater and lesser trochanter as well as the left iliac bone, as detailed above. 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
--- NOTE | 2024-11-14 23:54 | PC.NURSE ---
Received report from ACACIA Brandon for cont. of care. Pt AOx4, c/o 10/10 R flank pain, nonradiating. Pt on cont. monitoring tech and cont. pulse oximeter.
[2024-11-14 23:56] VITALS: BP 149/66; PULSE 88; RESP 20; O2SAT 96
[2024-11-15] VITALS (17 sets, daily range): BP systolic 105–144; BP diastolic 47–69; PULSE 71–86; RESP 13–23; TEMP 36.3–36.7; O2SAT 93–100; BMI 40.0; BMI 10.0
[2024-11-15] MEDS: HYDROcodone/acetaminophen (*CRX) 5-325 MG TABLET 1 TAB PO ×4 (01:28→18:35)
[2024-11-15] MEDS: LACTATED RINGERS 1,000 ML 999 ML IV CONT (01:30)
--- NOTE | 2024-11-15 04:00 | ADMGEN ---
This patient, Kamilah Hale, was admitted to 2 Medical Room 242-. Patient/family oriented to hospital policies and general routines including ID bracelet, bed and alarms, visiting hours, pain management, procedures, bathroom and other care routines, personal items, smoking policy, room service/diet, and visiting hours. Information on how to activate the Rapid Response Team has been discussed. Patient/Family are encouraged to report perceived risks to care and to ask questions if they do not understand what they are told or what they should do.
--- NOTE | 2024-11-15 06:56 | P.HP_ITS ---
H&P: HPI History of Present Illness Date/Time: 11/15/24 06:56 Chief Complaint: Weakness Narrative: Kamilah Hale is a 74-year-old female with a past medical history of CAD, CHF, HTN, asthma, and debility w/ normal ambulation with a walker presents to the hospital for weakness and difficulty ambulating. Patient states that she had surgery on her left hip in May and had two falls, one in May and the other in June, and was never seen by her orthopedic surgeon after these falls. She denies any falls since then, and has been using Tylenol for p.r.n. pain control with little to no relief. Patient states that the pain is there when she walks or moves her left leg, but is better at rest. She endorses difficulty with ambulation, but states that she still moves around the house with a walker. Denies any chest pain, shortness a breath, nausea/vomiting, abdominal pain, lower back pain, or urinary/bowel changes. She denies any recent falls within the past few months, and denies any head trauma with her previous 2 falls in May/June. Denies any loss of consciousness. She is not on anticoagulation at this time. Denies neuropathy and has good distal range of motion and pulses. Family is concerned that they were not able take care of her at home and patient agrees with rehabilitation, but denies wanting to be in a senior living. In ED: 36.4C, 91 HR, 19 RR, 125/72, 98% on RA WBC 9.7, RBC 54.18, Hgb 12.1, Hct 38.5, Plt 286, Na 133, K 3.6, BUN 29, Cr 1.76, AST 41, ALT 24, Alk Phos 235, BNP 232 UA: 2+ Leuk esterase, 11-20 WBC, 4+ Bacteria Hip XR: Likely periprosthetic fracture of the greater and lesser trochanter as well as the left iliac bone CXR: Mild pulmonary vascular congestion, without focal infiltrate. EKG: NSR, LAD, QTc 492, QT 409 Review of Systems Review of Systems: All systems reviewed & are unremarkable except as noted in HPI and below PMFSH Past Medical History Medical History DVT (deep venous thrombosis) Asthma Social History Social History Smoking status: Never smoker Alcohol intake: never Substance use: never Do You Feel Safe in your Home?: Yes Lack of Transportation: No Lack of Food: Never True Current Housing: I Have Housing Concerned About Future Housing: No Difficulty Paying Gas/Electric Bills: No Difficulty Paying for Meds: No Currently Unemployed: No Education: Grade School Difficulty w/ Childcare or Family Care: No Spiritual care concerns: No Meds Home Medications and Allergies Home Medications ?Medication ?Instructions ?Recorded ?Confirmed ?Type albuterol sulfate 90 mcg/actuation 1 inhalation inhalation Q4H 06/11/19 11/15/24 History aerosol inhaler (Ventolin HFA) furosemide 40 mg tablet 40 mg PO QAM 06/11/19 11/15/24 History montelukast 10 mg tablet 10 mg PO DAILY 06/11/19 11/15/24 History (Singulair) nitroglycerin 0.4 mg sublingual 0.4 mg sublingual Q5M PRN chest 06/11/19 11/15/24 History tablet pain buspirone 15 mg tablet 15 mg PO BID 06/13/19 11/15/24 History ondansetron HCl 4 mg tablet 4 mg PO Q8H 06/13/19 11/15/24 History aspirin 81 mg tablet,delayed 81 mg PO DAILY 11/15/24 11/15/24 History release atorvastatin 40 mg tablet 40 mg PO DAILY 11/15/24 11/15/24 History baclofen 10 mg tablet 10 mg PO Q8H PRN muscle spasm 11/15/24 11/15/24 History wzkfgprqui-akmwntnhsexjd-awphtzrm 1 tablet PO Q6H PRN pain 11/15/24 11/15/24 History 50 mg-325 mg-40 mg tablet clopidogrel 75 mg tablet 75 mg PO DAILY 11/15/24 11/15/24 History cyclobenzaprine 10 mg tablet 10 mg PO DAILY 11/15/24 11/15/24 History ferrous sulfate 325 mg (65 mg 325 mg PO DAILY 11/15/24 11/15/24 History iron) tablet (FeroSul) gabapentin 600 mg tablet 600 mg PO TID 11/15/24 11/15/24 History hydrocodone 10 mg-acetaminophen 1 tablet PO DAILY PRN pain 11/15/24 11/15/24 History 325 mg tablet loperamide 2 mg capsule 2 mg PO DAILY 11/15/24 11/15/24 History mometasone-formoterol HFA 200 2 inh inhalation Q12H 11/15/24 11/15/24 History mcg-5 mcg/actuation aerosol inhaler (Dulera) pantoprazole 40 mg tablet,delayed 40 mg PO DAILY 11/15/24 11/15/24 History release potassium chloride 20 mEq 20 meq PO DAILY 11/15/24 11/15/24 History tablet,extended release(part/cryst) sertraline 100 mg tablet 100 mg PO DAILY 11/15/24 11/15/24 History Allergies Allergy/AdvReac Type Severity Reaction Status Date / Time Penicillins Allergy Mild Rash Verified 06/13/19 14:34 Vital Signs Vital Signs - 24 hr 11/14/24 19:58 11/14/24 20:06 11/14/24 21:49 Temperature 97.5 F L Pulse Rate 91 89 89 Respiratory Rate 19 18 Blood Pressure 125/72 141/72 H Pulse Oximetry 98 98 Oxygen Delivery Room Air 11/14/24 23:15 11/14/24 23:56 11/15/24 00:01 Temperature Pulse Rate 87 88 86 Respiratory Rate 18 20 19 Blood Pressure 149/66 H 149/66 H 127/56 L Pulse Oximetry 96 96 96 Oxygen Delivery 11/15/24 00:30 11/15/24 00:45 11/15/24 00:46 Temperature Pulse Rate 85 83 83 Respiratory Rate 20 18 19 Blood Pressure 144/65 H Pulse Oximetry 96 96 96 Oxygen Delivery 11/15/24 01:00 11/15/24 01:15 11/15/24 01:30 Temperature Pulse Rate 82 85 82 Respiratory Rate 23 H 13 21 H Blood Pressure Pulse Oximetry 96 96 97 Oxygen Delivery 11/15/24 01:31 11/15/24 01:45 11/15/24 03:40 Temperature Pulse Rate 82 77 76 Respiratory Rate 19 16 17 Blood Pressure 131/67 Pulse Oximetry 99 98 97 Oxygen Delivery 11/15/24 03:45 11/15/24 04:59 Temperature 97.3 F L Pulse Rate 78 80 Respiratory Rate 14 20 Blood Pressure 140/60 Pulse Oximetry 96 Oxygen Delivery Exam Narrative: Gen - ill appearing female in no acute respiratory distress who is nontoxic- appearing lying semi recumbent in bed HEENT - normocephalic. Atraumatic. Pupils equal round and reactive. Extraocular motions intact. Sclera clear and anicteric. Nares patent. Moist mucous membranes. Tongue was midline. No facial asymmetry. Neck - neck was supple. No dominant adenopathy, thyromegaly or masses. 2+ carotid upstrokes without bruits. Chest - lungs are clear to auscultation bilaterally. No wheezes or crackles. Breast exam was deferred. CV - heart was regular rate and rhythm. S1-S2. No murmurs gallops or rubs. Abd - abdomen was soft. Nontender. Nondistended. Positive bowel sounds. No organomegaly or masses. Ext - Bilateral lower extremity non-pitting lymphedema. Difficulty raising left leg. No difficulty/pain with lifting of right leg. No pain on palpation of hip. No overlying skin changes on hip. 2+ DP pulses bilaterally. Neuro - patient is alert and oriented x4. Strength is 5/5 in both upper and lower extremities. Cranial nerves 2-12 are intact. Speech is clear. Psych - normal mood and affect. Patient is pleasant and cooperative. Skin - warm and dry. No rashes noted. H&P: Results Labs Labs: Short CBC 11/14/24 Range/Units 20:53 WBC 9.7 (4.5-10.0) K/mm3 Hgb 12.1 (12.0-15.0) g/dL Hct 38.5 (37.0-47.0) % Plt Count 286 (150-375) k/mm3 BMP 11/14/24 20:54 Sodium 133 L Potassium 3.6 Chloride 98 Carbon Dioxide 25 BUN 29 H Creatinine 1.76 H Glucose 130 H Calcium 9.7 Liver Function 11/14/24 Range/Units 20:54 Total Bilirubin 0.4 (0.2-1.3) mg/dL AST 41 H (14-36) U/L ALT 25 (6-35) U/L Alkaline Phosphatase 235 H (38-126) U/L Albumin 4.1 (3.5-5.1) g/dL Urine 11/14/24 Range/Units 20:53 Urine Color Yellow (Yellow) Urine Appearance Clear (Clear) Urine pH 5.5 (5.0-9.0) Ur Specific [place] 1.013 (1.001-1.035) Urine Protein Negative (Negative) mg/dL Urine Glucose (UA) Negative (Negative) mg/dL Assessment and Plan Assessment and plan (1) Acute UTI: Code(s): N39.0 - Urinary tract infection, site not specified Status: Acute Assessment and Plan: * UA: 2+ Luekocyte esterase, 3-5 RBC, 11-20 WBC, 4+ bacteria * UC obtained on 11/14 * started on IV Rocephin (2) GUERO (acute kidney injury): Code(s): N17.9 - Acute kidney failure, unspecified Status: Acute Assessment and Plan: * Creatinine: 1.76, GFR: 28, BUN: 29 * IV Fluids: Started on LR, will switch to NS * Trend renal function * Trend electrolytes, correct as needed (3) Periprosthetic fracture around internal prosthetic hip joint: Code(s): M97.8XXA - Periprosthetic fracture around other internal prosthetic joint, initial encounter; Z96.649 - Presence of unspecified artificial hip joint Status: Acute Assessment and Plan: * Hip XR: Likely periprosthetic fracture of the greater and lesser trochanter as well as the left iliac bone * Denies recent falls but states she fell several months ago after previous hip surgery * Pain to palpation of left hip, also difficulty with lifting left leg due to pain * ER discussed with [facility] * Give chronicity of injury + ambulatory status, no intervention indicated at this time * Follow up with ortho in out-pt setting * PT/OT eval * Working with [facility] regarding [facility] vs SNF vs home health (4) Debility: Code(s): R53.81 - Other malaise Status: Acute Assessment and Plan: * See above Plan DVT Prophylaxis: SCDs, no thinners given h/o falls Quality VTE Prophylaxis VTE prophylaxis: mechanical ordered
[2024-11-15] MEDS: SODIUM CHLORIDE 0.9% IV 1,000 ML 75 ML IV CONT (08:59)
[2024-11-15] MEDS: GABAPENTIN 300 MG CAPSULE 600 MG PO ×3 (09:01→17:16)
[2024-11-15] MEDS: ATORVASTATIN 40 MG TABLET PO (09:01)
[2024-11-15] MEDS: FERROUS SULFATE 325 MG TABLET DR PO (09:01)
[2024-11-15] MEDS: FUROSEMIDE 40 MG TABLET PO (09:01)
[2024-11-15] MEDS: CYCLOBENZAPRINE HCL 10 MG TABLET PO (09:01)
[2024-11-15] MEDS: CLOPIDOGREL BISULFATE 75 MG TABLET PO (09:01)
[2024-11-15] MEDS: ASPIRIN 81 MG ENTERIC TABLET PO (09:01)
[2024-11-15] MEDS: PANTOPRAZOLE 40 MG TABLET PO (09:02)
[2024-11-15] MEDS: MONTELUKAST SODIUM 10 MG TABLET PO (09:02)
[2024-11-15] MEDS: LOPERAMIDE HCL 2 MG CAPSULE PO (09:02)
[2024-11-15] MEDS: SERTRALINE HCL 50 MG TABLET 100 MG PO (09:02)
[2024-11-15] MEDS: POTASSIUM CHLORIDE 20 MEQ ER TABLET PO (09:02)
[2024-11-15] MEDS: ONDANSETRON HCL ODT 4 MG TABLET PO ×2 (09:02→17:16)
[2024-11-15] MEDS: busPIRone HCL 5 MG TABLET 15 MG PO ×2 (09:14→17:16)
--- OUTSIDE RECORDS SUMMARY | 2024-11-15 11:07 | XMS_ITS | Patient Health Record ---
Author Organization [facility] Address [address] [place] [address] Care Team Providers Care Spool Salvager Name Role Phone Marco Miguel Primary Care Provider [phone] Rahul Martino Unavailable [phone] Allergies Allergen (clinical drug ingredient) Drug/Non Drug Allergy documented on EMR Reaction Allergy Type Onset Date Status Chocolate Flavor Unknown Drug Allergy Active Penicillin Unknown Drug Allergy Active Reason For Referral Reason COPD, started on oxy gen in hospital after recent pneumonia. Diagnosis 1 Chronic obstructive pulmonary disease, unspecified COPD type (J44.9) Referral Organization [facility] Referring Provider First Name Marco Referring Provider Last Name Lamont [facility]erred Provider [facility] [place] Referred Provider Specialty Pulmonology General Notes Ashley Foster RN 06/07/2024 03:38:53 PM >[facility]'s website indicates that JUAN Olivas with [facility] [place] accepts [employer]. Will fax referral when notes are available from visit.Kristin RN, Stephanie N 06/08/2024 09:47:40 AM >referral faxed.Kristin RN, Stephanie N 06/08/2024 09:49:06 AM >letter mailed with referral details. Clinical Notes [facility] [place] , [address] [place] [address] Wolfgang Knapp, [place] [address], , Referral Priority Routine Medications Medication SIG (Take, Route, Frequency, Duration) Notes Start Date End Date Status Hospital Bed 07/10/2024 Active Misc. Devices - Hospital bed for 999 days 07/10/2024 Active Ipratropium Cre[place] 0.02 % 2.5 mL as needed Inhalation [...] Vaccine Route Administration Date Status Commmichael nts Influenza, injectable, quadrivalent, preservative free IM Intramuscular 03/21/2018 Administered Pt tolerated injection well. Questions and concerns denied. FLU VAC NO PRSV 4VAL 6 mo+ IM Intramuscular 03/21/2019 Administered Pt tolerated injection well. No questions or concerns voiced. [employer] FLU VAC NO PRSV 4VAL 6 mo+ IM Intramuscular 02/12/2020 Administered Pt radhames well. S dated 01/12/2020 FLU VAC NO PRSV 4VAL 6 mo+ IM Intramuscular 03/10/2022 Administered pt tolerated well COVID-19 Moderna 2nd IM Intramuscular 12/25/2020 Administered COVID-19 Moderna 1ST IM Intramuscular 11/27/2020 Administered Social History Tobacco Use: Social History Observation Description Date Details (start date - stop date) Never Smoker NA - NA Sex Assigned At : Social History Observation Description Sex Assigned At Female Tobacco Control (Standard) Question Answer Notes Tobacco use: Nonsmoker Section Notes: Problems Problem Type SNOMED Code ICD Code Onset Dates Problem Status W/U Status Risk Notes Problem Morbid obesity (disorder) (626210987) Morbid (severe) obesity due to excess calories (E66.01) Active confirmed Problem 284396329 Chronic pain syndrome (G89.4) Active confirmed Problem Vaccination given (793020272) Encounter for immunization (Z23) Active confirmed Problem Anxiety (67758811) Anxiety (F41.9) Active confirmed Problem 368115288 [facility] curren t use of anticoagulant (Z79.01) Active confirmed Problem 013356145 Mixed stress and urge urinary incontinence (N39.46) Active confirmed Problem 377152401 Obesity (BMI 30-39.9) (E66.9) Active confirmed Problem 33820116 Chronic migraine (G43.709) Active confirmed Problem 42753530 Essential hypertension (I10) 018 Active confirmed Problem 624640927 Gastroesophageal reflux disease, esophagitis presence not specified (K21.9) Active confirmed Problem 19055947 Chronic obstruct scott pulmonary disease, unspecified COPD type (J44.9) Active confirmed Problem 81608436 Congestive heart failure, unspecified congestive heart failure chronicity, unspecified congestive heart failure type (I50.9) 017 Active confirmed Problem 714697470 Primary osteoarthritis of both knees (M17.0) Active confirmed WALKER Problem 056193502 Gastroesophageal reflux disease without esophagitis (K21.9) Active confirmed Problem 318405150 Low hemoglobin (D64.9) Active confirmed Problem Polyneuropathy (73622281) Polyneuropathy (G62.9) Active confirmed Problem 567415421 Asthma, unspecif ied asthma severity, unspecified whether complicated, unspecified whether persistent (J45.909) Active confirmed Problem 09179641 Current severe episode of major depressive disorder without psychotic features without prior episode (F32.2) 020 Active confirmed Problem 084418006 Severe obesity ( BMI >= 40) (E66.01) [...] 05/31/2024 Encounters Encounter Location Date Provider Diagnosis [address] [place] [address] 11/24/[address] [place] [address] 12/30/[address] [place] [address] 01/11/[address] [place] [address] 04/05/[address] [place] [address] 04/25/2024 Marco Miguel [facility] [address], [place] [address] 07/03/2024 Marco Miguel [address] [address] 07/10/2024 Marco Miguel [address] [address] 07/13/2024 Marco Miguel Impaired mobility Z74.09 and Closed fracture of left hip, initial encounter S72.002A [address] [address] 07/24/2024 Marco Miguel Closed fracture of l eft hip, initial encounter S72.002A [address] [address] 07/27/2024 Rahul Martino Chronic diarrhea K52 .[address] [address] 10/29/2024 Rahul Martino [address] [address] 08/02/2024 Marco Miguel Closed fracture of l eft hip, initial encounter S72.002A [address] [address] 09/17/2024 Rahul Martino Dysuria R30.0 ; Congestive [...] ; Opioid use F11.90 and Polypharmacy Z79.[address] [address] 03/13/2024 Marco Miguel Congestive heart failure, unspecified congestive heart failure chronicity, unspecified congestive heart failure type I50.9 ; Primary osteoarthritis of both knees M17.0 ; Chronic migraine G43.709 ; Anxiety F41.9 ; Chronic pain syndrome G89.4 ; Chronic obstructive pulmonary disease, unspecified COPD type J44.9 ; Obesity (BMI 30-39.9) E66.9 and Nutritional counseling Z71.[address] [address] 05/08/2024 Marco Miguel Low hemoglobin D64.9 ; Obesity (BMI 30-39.9) E66.9 and Nutritional counseling Z71.[address] [address] 05/31/2024 Marco Miguel Gastroesophageal ref lux disease without esophagitis K21.9 ; Hospital discharge follow-up Z09 ; Chronic migraine G43.709 ; Chronic diarrhea K52.9 ; Chronic obstructive pulmonary disease, unspecified COPD type J44.9 ; Obesity (BMI 30-39.9) E66.9 and Nutritional counseling Z71.[address] [address] 07/12/2024 Marco Miguel Closed fracture of l eft hip, initial encounter S72.002A and Impaired mobility Z74.09 Assessments Encounter Date Diagnosis (ICD Code) Assessment Notes Treatment Notes Treatment Clinical Notes Section Notes 09/17/2024 Dysuria (ICD-10 - R30.0) UNABLE TO GIVE SPECIMEN IN OFFICE. CAREGIVER WILL TAKE HAT AND CUP HOME AND BRING SPECIMEN BACK TOMORROW. 03/13/2024 Congestive heart failure, unspecified congestive heart failure chronicity, unspecified congestive heart failure type (ICD-10 - I50.9) 03/13/2024 Primary osteoarthritis of both knees (ICD-10 - M17.0) WALKER 07/12/2024 Impaired mobility (ICD-10 - Z74.09) 07/12/2024 Closed fracture of left hip, initial encounter (ICD-10 - S72.002A) 07/24/2024 Closed fracture of left hip, initial encounter (ICD-10 - S72.002A) 05/08/2024 Obesity (BMI 30-39.9) (ICD-10 - E66.9) 05/08/2024 Low hemoglobin (ICD-10 - D64.9) 09/17/2024 Congestive heart failure, unspecified congestive heart failure chronicity, unspecified congestive heart failure type (ICD-10 - I50.9) CLINICALLY STABLE 08/02/2024 Closed fracture of left hip, initial encounter (ICD-10 - S72.002A) 07/27/2024 Chronic diarrhea (ICD-10 - K52.9) 07/13/2024 Impaired mobility (ICD-10 - Z74.09) 07/13/2024 Closed fracture of left hip, initial encounter (ICD-10 - S72.002A) 05/31/2024 Gastroesophageal reflux disease without esophagitis (ICD-10 - K21.9) 05/31/2024 Hospital discharge follow-up (ICD-10 - Z09) 05/31/2024 Chronic migraine (ICD-10 - G43.709) 09/17/2024 Primary osteoarthritis of both knees (ICD-10 - M17.0) USES HYDROCODONE INTERMITTENTLY 05/08/2024 Nutritional counseling (ICD-10 - Z71.3) 03/13/2024 Chronic migraine (ICD-10 - G43.709) 03/13/2024 Anxiety (ICD-10 - F41.9) 09/17/2024 Essential hypertension (ICD-10 - I10) 05/31/2024 Chronic diarrhea (ICD-10 - K52.9) 05/31/2024 Chronic obstructive pulmonary disease, unspecified COPD type (ICD-10 - J44.9) 09/17/2024 Chronic pain syndrome (ICD-10 - G89.4) 03/13/2024 Chronic pain syndrome (ICD-10 - G89.4) Takes chronically for OA pain. 03/13/2024 Chronic obstructive pulmonary disease, unspecified COPD type (ICD-10 - J44.9) 09/17/2024 Chronic obstructive pulmonary disease, unspecified COPD type (ICD-10 - J44.9) 05/31/2024 Obesity (BMI 30-39.9) (ICD-10 - E66.9) 05/31/2024 Nutritional counseling (ICD-10 - Z71.3) 09/17/2024 Mixed stress and urge urinary incontinence (ICD-10 - N39.46) 03/13/2024 Obesity (BMI 30-39.9) (ICD-10 - E66.9) 09/17/2024 History of back surgery (ICD-10 - [...] Insured Coverage Start Date Coverage End Date [facility] Attn Claims Department [address] [address] [phone] [id number] Kamilah Hale Self - patient is the insured 7 [facility] [employer] Attn Claims Department [address] [address] [id number] Kamilah Hale Self - patient is the insured 0 [facility] [employer] Attn Claims Department [address] [address] [id number] Kamilah Hale Self - patient is the insured 1 Medical (General) History Medical History History ICD Code CHF osteoarthritis of the knees and shoulder s bilaterally and stage anxiety acid reflux asthma Polyneuropathy Surgical History Surgery Date(Month/Year) left and right knee replace rotary cuff repaired left and right mastoid behind right ear removed back surgery Hospitalization History Reason Date(Month/Year) [facility] 05/2022 [facility]-hypokalemia 10/2022
--- OUTSIDE RECORDS SUMMARY | 2024-11-15 11:07 | XMS_ITS ---
Author Organization [facility] Address [address] [place] [address] Care Team Providers Care Manager Decision Support Name Role Phone Marco Miguel Primary Care Provider Rahul Martino Unavailable [phone] REASON FOR VISIT transfer from [facility] Social History Sex Assigned At : Social History Observation Description Sex Assigned At Female Encounters Encounter Location Date Provider Diagnosis [address] [address] 09/24/2024 Rahul Martino Plan Of Treatment No Information Progress Notes * Kamilah HALE IVDOB:1950 (74 yo F)Acc No.[id number]:09/24/2024 UNLOCKED PROGRESS NOTE Progress Notes Patient: Kamilah IZAGUIRRE IV Provider: Abilio Martino :1950 A ge:74 Y S ex:Female Date:09/24/2024 Address:[address] [place] [address], [address] [facility] Pcp:Marco Miguel Subjective: * Chief Complaints: * 1 . transfer from [facility]. * Medical History: Objective: * Vitals: Assessment: Plan: * Treatment: * * Electronic signature of Montez Martino , [id number] on 11/15/2024 at 11:06 AM CDT Sign off status: Pending * Provider: Abilio Martino Date: 0 09/24/2024 Generated for Maurisio antonio/Faxing/eTransmitting on: 0 11/15/2024 11:06 AM CDT
--- OUTSIDE RECORDS SUMMARY | 2024-11-15 11:07 | XMS_ITS | CONTINUITY OF CARE DOCUMENT ---
Author Name francia, lakiaser Address Unknown Organization [facility] Address [address] [place] [address] Phone [phone] Care Team Providers Care Recenterer Name Role Phone Jeffrey HOLLEY, John Unavailable [...] In-person encounter Office Visit John Murphy MD [facility] Cardiology examination - In-person encounter Office Visit John Murphy MD [facility] Shortness of breath - In-person encounter Office Visit John Murphy MD [facility] Cough - In-person encounter Office Visit John Murphy MD [facility] - In-person encounter Office Visit John Murphy MD [facility] - In-person encounter Office Visit John Murphy MD [facility] ClaudicationPeripheral artery disease, mild - In-person encounter Office Visit John Murphy MD [facility] CAD--cath mild CAD, presevered EF, ardiomyopathy -Ef nlDeconditioning- related to recent hospitalization - In-person encounter Office Visit Jonh Murphy MD [facility] CAD--cath mild CAD, presevered EF, 05/2022 - In-person encounter Office Visit John Murphy MD [facility] - In-person encounter Office Visit John Murphy MD [facility] - In-person encounter Office Visit John Murphy MD [facility] - In-person encounter Office Visit John Murphy MD [facility] - In-person encounter Office Visit John Murphy MD [facility] - In-person encounter Office Visit John Murphy MD [facility] EdemaWheezing - In-person encounter Office Visit John Murphy MD [facility] - In-person encounter Office Visit John Murphy MD [facility] - In-person encounter Office Visit John Murphy MD [facility] - In-person encounter Office Visit John Murphy MD [facility] - In-person encounter Office Visit John Murphy MD [facility] - In-person encounter Office Visit John Murphy MD [facility] - In-person encounter Office Visit John Murphy [facility] - In-person encounter Office Visit John Murphy MD [facility] DVT - In-person encounter Office Visit John Murphy MD [facility] - In-person encounter Office Visit John Murphy MD [facility] - In-person encounter Office Visit John Murphy MD [facility] - In-person encounter Office Visit John Murphy MD [facility] CAD--cath mild CAD, presevered EF, 3Cardiomyopathy -Ef nl - In-person encounter Office Visit John Murphy MD [facility] Hyperlipidemia - In-person encounter Office Visit John Murphy MD [facility] CAD--cath mild CAD, presevered EF, 3Cardiomyopathy -Ef nlDiastolic CHFHyperlipidemiaHTN essential - In-person encounter Office Visit John Murphy MD [facility] CHEST PAIN-11/06 NUC INF WALL ISCHEMIACAD--cath mild CAD, presevered EF, 05/2022 - In-person encounter Office Visit John Murphy MD [facility] - In-person encounter Office Visit John Murphy MD [facility] ARTHRITISASTHMA VITAL SIGNS Date Observation Value Provider Body Mass Index (Ratio) 36.21 kg/m2 Isidro Grantzai blood pressure, diastolic 77 mm[Hg] Desire nkLogic blood pressure, systolic 111 mm[Hg] Hortencia kLogic weight E&M 211 [lb_av] Anna Tirado s blood pressure, diastolic 77 mm[Hg] Laura Alvarez blood pressure, systolic 111 mm[Hg] Tasha Alvarez blood pressure, cuff size regular Laura lAvarez pulse rate 87 /min Anna brizuela oxygen saturation, oximetry 98 % Anna Alvarez height E&M 64 [in_i] Anna Tirado s Body Mass Index (Ratio) 40.75 kg/m2 Renee nelida Puhse blood pressure, diastolic 79 mm[Hg] Ky macarena Carreon blood pressure, systolic 167 mm[Hg] Ashley elif Carreon oxygen saturation, oximetry 97 % [facility] pulse rate 87 /min [facility] blood pressure, cuff size regular Dash macarena Carreon weight E&M 237.4 [lb_av] [facility] height E&M 64 [in_i] [facility] Body Mass Index (Ratio) 40.33 kg/m2 Thomas Murphy MD blood pressure, diastolic 77 mm[Hg] Roxanne Dior blood pressure, systolic 134 mm[Hg] Vip in [facility], oximetry 96 % Khanh [facility] respiratory rate E&M 16 /min Khanh M ncalyssa pulse rate 78 /min Khanh [facility] blood pressure, cuff size regular Roxanne Dior weight E&M 235 [lb_av] Khanh [facility] height E&M 64 [in_i] [facility] Body Mass Index (Ratio) 39.48 kg/m2 Isidro Nunes blood pressure, cuff size regular Fa [facility] blood pressure, diastolic 69 mm[Hg] [facility] blood pressure, systolic 125 mm[Hg] [facility] oxygen saturation, oximetry 96 % [facility] pulse rate 83 /min [facility] weight E&M 230 [lb_av] [facility] respiratory rate E&M 16 /min [facility] height E&M 64 [in_i] [facility] Body Mass Index (Ratio) 41.88 kg/m2 [facility] pulse rate 90 /min [facility] blood pressure, cuff size regular [facility] blood pressure, diastolic 74 mm[Hg] [facility] blood pressure, systolic 146 mm[Hg] [facility] oxygen saturation, oximetry 94 % [facility] respiratory rate E&M 16 /min [facility] weight E&M 244 [lb_av] [facility] height E&M 64 [in_i] [facility] Body Mass Index (Ratio) 39.92 kg/m2 [facility] nelida [facility] blood pressure, diastolic 74 mm[Hg] susanna Anderson [...] blood pressure, systolic 134 mm[Hg] Any arie Belrtan height E&M 64 [in_i] Lisette Beltran Body [...] Yvonne oconnell weight E&M 234 [lb_av] Yvonne Rainye lder height E&M 64 [in_i] Yvonne Redd [...] kg/m2 Isidro Manju blood pressure, resting Yes Deering kaplan [place] blood pressure, diastolic 90 mm[Hg] Li nkLogic blood pressure, systolic 160 mm[Hg] Hortencia kLogic blood pressure, diastolic 90 mm[Hg] Ma rsha [place] blood pressure, systolic 160 mm[Hg] [facility] [place] oxygen saturation, oximetry 95 % [...] height E&M 64 [in_i] Yvonne Rainey [facility] Body Mass Index (Ratio) 40.85 kg/m2 Thomas Murphy MD blood pressure, diastolic 77 mm[Hg] Cy luda Anglin blood pressure, systolic 170 mm[Hg] Lucinda ashish Anglin blood pressure, cuff size regular Cy tammiemaarie Anglin pulse rate 102 /min Dayan Campbel [...] Body Mass Index (Ratio) 41.53 kg/m2 Thomas uMrphy MD blood pressure, cuff size regular Cy [...] sofy weight E&M 239 [lb_av] Maureen Johnston [facility] height E&M 64 [in_i] Maureen Johnston [facility] Body Mass Index (Ratio) 24.20 kg/m2 Thomas [...] as % of total hemoglobin 5.3 % [facility] 0 LDL cholesterol, serum 136 mg/dL [facility] 5 anion gap, serum 9 [facility] 5 calcium, serum 9.2 mg/dL [facility] Leonardo 5 blood glucose, fasting 104 mg/dL [facility]ardo 5 creatinine, serum 0.8 mg/dL [facility] Leonardo 5 urea nitrogen, blood 17 mg/dL [facility] Leonardo 5 carbon dioxide, serum, total 31 mmol/L [facility] Leonardo 5 chloride, serum 103 mmol/L [facility] Leonardo 5 potassium, serum 4.1 mmol/L [facility] Leonardo 5 sodium, serum 138 mmol/L [facility] Leonardo 5 platelet count 243 10*3/uL Alannah Patterson 5 red blood cell distribution width 13.4 % Alannah Patterson 5 mean corpuscular hemoglobin concentration, RBC 33.3 g/dL Alannah Patterson 5 mean corpuscular hemoglobin, RBC 28.4 pg Alannah Patterson 5 mean corpuscular volume, RBC 85.3 fL Alannah Patterson 5 hematocrit, blood 34.4 % Alannah Patterson 5 hemoglobin, blood 11.4 g/dL [facility] Leonardo erythrocyte (RBC) count 4.03 10*6/mm3 Alannah [...] tablet by mouth once daily - [facility] atorvastatin 40 mg tablet active TAKE 1 TABLET BY MOUTH EVERY NIGHT [facility] Plavix 75 mg tablet completed Take 1 tablet by mouth once a day - [facility] Dulera 200-5 mcg/actuation HFA aerosol inhaler active [...] shot a month - Do Brant butalbital-acetam [id number] 78-750-01-30 mg capsule completed capsule by mouth twice [...] - Kade Madera RN per bottle ENABLEX [id number] completed 15mg 1 daily - Kade Madera [...] use, averag e drinks per day no Kya Hong smoking status Never smoker Kay Hong [...] exercise, f requency, days per week yes Dyaan Angiln caffeine use, averag e drinks per day [...] Maureen mcgraw smoking status Never smoker Maureen Paniauga social history E&M Marital Statu s: Single [...] Payer name Policy type / Coverage type [place] red libertarian ID [facility] Medicaid [id number] ADVANCE DIRECTIVES Name Date DISCUSSED - NO DECISION MADE TREATMENT PLAN Date Name Performer [id number],S, Isidro Ferminmedza i [id number],S, Isidro Ferminmedza i [id number],S, Isidro Ahmedza i [id number],S, Isidro Ahmedza i [id number],S, Isidro Ahmedza i [id number],S, Isidro Ahmedza i [id number],S, Isidro Ahmedza i [id number],S, Isidro Ahmedza i [id number],S, Isidro Ahmedza i [id number],S, Isidro Ahmedza i [id number],S, Isidro Ahmedza i [id number],S, Isidro Ahmedza i [id number],S, Isidro Ahmedza i [id number],S, Isidro Ahmedza i [id number],S, Isidro Ahmedza i [id number],S, Isidro Ahmedza i [id number],S, Isidro Ahmedza i [id number],S, Isidro Ahmedza i [id number],S, Isidro Ahmedza i [id number],S, Isidro Ahmedza i [id number],S, Isidro Ahmedza i [id number],S, Isidro Ahmedza i [id number],S, Isidro Ahmedza i [id number],S, Isidro Ahmedza i [id number],S, Isidro Ahmedza i [id number],S, Isidro Ahmedza i [id number],S, Isidro Ahmedza i [id number],S, Isidro Ahmedza i [id number],S, Isidro Ahmedza i [id number],S, John Murphy MD [id number],S, John Murphy MD [id number],W, John Murphy MD [id number],S, John Murphy MD [id number],S, John Murphy MD [id number],S, Isidro Juanitasarahy i [id number],S, Isidro Negro i [id number],S, Isidro Tom i [id number],S, Isidro Tom i [id number],S, Isidro Tom i [id number],S, Isidro Ferminjermaine i Cardiology: H er updated [...] day Orders: C OMPREHENSIVE METABOLIC PANEL, W/EGFR (08573) C BC (INCLUDES DIFF/PLT) (6399) F ERRITIN (457) I ELIF AND TOTAL IRON BINDING CAPACITY (7573) P ROBNP, N TERMINAL (33350) John Murphy MD Cardiology: H er updated [...] ems Orders: C OMPREHENSIVE METABOLIC PANEL, W/EGFR (31345) C BC (INCLUDES DIFF/PLT) (6399) F ERRITIN (457) I ELIF AND TOTAL IRON BINDING CAPACITY (7573) P ROBNP, N TERMINAL (46384) Isidro Nunes Cardiology: B P today: 167/79 P rior BP: 134/77 (01/04/2024) Labs Reviewed: C reat: 0.8 (12/11/2009) L DL: 136 (09/06/2017) Her updated medication list for this problem includes: Furosemide 40 Mg Tablet (Furosemide) ..... Take 2 tablet by mouth twice a day Orders: C OMPREHENSIVE METABOLIC PANEL, W/EGFR (82567) C BC (INCLUDES DIFF/PLT) (6399) F ERRITIN (457) I ELIF AND TOTAL IRON BINDING CAPACITY (7573) P ROBNP, N TERMINAL (27898) [facility] Cardiology: H er updated medication list for this problem includes: Clopidogrel 75 Mg Tablet (Clopidogrel) ..... Take 1 tablet by mouth once a day Orders: C OMPREHENSIVE METABOLIC PANEL, W/EGFR (69643) C BC (INCLUDES DIFF/PLT) (6399) F ERRITIN (457) I ELIF AND TOTAL IRON BINDING CAPACITY (7573) P ROBNP, N TERMINAL (26332) [facility] Cardiology: H er updated medication list for [...] ems Orders: C OMPREHENSIVE METABOLIC PANEL, W/EGFR (80517) C BC (INCLUDES DIFF/PLT) (6399) F ERRITIN (457) I ELIF AND TOTAL IRON BINDING CAPACITY (7573) P ROBNP, N TERMINAL (88299) [facility] Cardiology: H er updated medication list for this problem includes: Atorvastatin 40 Mg Tablet (Atorvastatin) ..... Take 1 tablet by mouth every night Orders: C OMPREHENSIVE METABOLIC PANEL, W/EGFR (28220) C BC (INCLUDES DIFF/PLT) (6399) F ERRITIN (457) I ELIF AND TOTAL IRON BINDING CAPACITY (7573) P ROBNP, N TERMINAL (29554) [facility] Cardiology: H er updated medication list for this problem includes: Clopidogrel 75 Mg Tablet (Clopidogrel) ..... Take 1 tablet by mouth once a day Nitroglycerin 0.4 Mg Tablet, Sublingual (Nitroglycerin) ..... Dissolve one tablet sublingually every 5 minutes up to three times as needed for chest pain then call ems Orders: C OMPREHENSIVE METABOLIC PANEL, W/EGFR (09051) C BC (INCLUDES DIFF/PLT) (6399) F ERRITIN (457) I ELIF AND TOTAL IRON BINDING CAPACITY (7573) P ROBNP, N TERMINAL (60118) Isidro Nunes Cardiology: H er updated medication [...] ems Orders: C OMPREHENSIVE METABOLIC PANEL, W/EGFR (56674) C BC (INCLUDES DIFF/PLT) (6399) F ERRITIN (457) I ELIF AND TOTAL IRON BINDING CAPACITY (7573) P ROBNP, N TERMINAL (14242) Isidro Nunes Cardiology:This visi t has been [...] 1 tablet by mouth once a day [facility] Cardiology: H er updated medication list for this problem includes: Atorvastatin 40 Mg Tablet (Atorvastatin) ..... Take 1 tablet by mouth every night [facility] Cardiology: H er updated medication list for [...] needed for chest pain then call ems [facility] Cardiology: H er updated medication list for this problem includes: Clopidogrel 75 Mg Tablet (Clopidogrel) ..... Take 1 tablet by mouth once a day Nitroglycerin 0.4 Mg Tablet, Sublingual (Nitroglycerin) ..... Dissolve one tablet sublingually every 5 minutes up to three times as needed for chest pain then call ems [facility] Cardiology: H er updated medication list for this problem includes: Clopidogrel 75 Mg Tablet (Clopidogrel) ..... Take 1 tablet by mouth every day Nitroglycerin 0.4 Mg Tablet, Sublingual (Nitroglycerin) ..... Dissolve one tablet sublingually every 5 minutes up to three times as needed for chest pain then call ems [facility] Cardiology: H er updated medication list for this problem includes: Clopidogrel 75 Mg Tablet (Clopidogrel) ..... Take 1 tablet by mouth every day Furosemide 40 Mg Tablet (Furosemide) ..... Take 1 tablet by mouth twice a day Nitroglycerin 0.4 Mg Tablet, Sublingual (Nitroglycerin) ..... Dissolve one tablet sublingually every 5 minutes up to three times as needed for chest pain then call ems [facility] Cardiology: H er updated medication list for this problem includes: Atorvastatin 40 Mg Tablet (Atorvastatin) ..... Take 1 tablet by mouth every night [facility] Cardiology: B P today: 125/69 P rior BP: 146/74 (06/06/2023) Labs Reviewed: C reat: 0.8 (12/11/2009) L DL: 136 (09/06/2017) Her updated medication list for this problem includes: Furosemide 40 Mg Tablet (Furosemide) ..... Take 1 tablet by mouth twice a day [facility] Cardiology: H er updated medication list for this problem includes: Clopidogrel 75 Mg Tablet (Clopidogrel) ..... Take 1 tablet by mouth every day [facility] Cardiology: H er updated medication list for this problem includes: Clopidogrel 75 Mg Tablet (Clopidogrel) ..... Take 1 tablet by mouth every day Furosemide 40 Mg Tablet (Furosemide) ..... Take 1 tablet by mouth twice a day Nitroglycerin 0.4 Mg Tablet, Sublingual (Nitroglycerin) ..... Dissolve one tablet sublingually every 5 minutes up to three times as needed for chest pain then call ems [facility] Isidro taylorzai Cardiology Isidro medzai Cardiology [facility] Card[facility]:add lasix 4 0 mg in the afternoon , continue lasix 80 mg in am [facility] Isidro medzageraldo Cardiology Isidro Christensenmedzai Cardiology [...] John ingram MD Cardiology follow up John ignram MD Cardiology follow up John ingram MD Cardiology follow up John ingram MD Cardiology follow up Jhon ingram MD Cardiology:Jono more. John barkley MD [...] of 50%. Continue aggressive risk factor modifications. [facility] (12/16/2009) H gb: 11.4 (12/11/2009) HCT: 34.4 [...] of 50%. Continue aggressive risk factor modifications. [facility] (12/16/2009) H gb: 11.4 (12/11/2009) HCT: 34.4 [...] Echo 6 minute walk test DLCO - 11675 FRC - 28261 FVC - 18194 PROBNP, N TERMINAL TSH, 3RD GENERATION W/REFLEX [...] completed EKG John Murphy MD completed SNOMED-CT: 081912506 [id number] Current Medications Documented John Murphy MD completed SNOMED-CT: 34676926 Physical Exam, Performed: Pulse Exam of Foot John Murphy MD completed SNOMED-CT: 657790149 544104 Current Medications Documented John Murphy MD completed SNOMED-CT: 91344266 Physical Exam, Performed: Pulse Exam of Foot John Murphy MD completed SNOMED-CT: 17805846 Physical Exam, Performed: Pulse Exam of Foot John Murphy MD completed SNOMED-CT: 234055076 737737 Current Medications Documented John Murphy MD completed SNOMED-CT: 92549268 Physical Exam, Performed: Pulse Exam of Foot John Murphy MD completed EKG John Murphy MD completed SNOMED-CT: 289723413 840601 Current Medications Documented John Murphy MD completed SNOMED-CT: 96410488 Physical Exam, Performed: Pulse Exam of Foot John Murphy MD completed SNOMED-CT: 800976536 292427 Current Medications Documented John Murphy MD completed
--- OUTSIDE RECORDS SUMMARY | 2024-11-15 11:07 | XMS_ITS | CONTINUITY OF CARE DOCUMENT ---
Author Name francia, lakiaser Address Unknown Organization [facility] Address [address] [place] [address] Phone [phone] Care Team Providers Care Rod Pointer Name Role Phone Jeffrey HOLLEY, John Unavailable [...] In-person encounter Office Visit John Murphy MD [facility] Cardiology examination - In-person encounter Office Visit John Murphy MD [facility] Shortness of breath - In-person encounter Office Visit John Murphy MD [facility] Cough - In-person encounter Office Visit John Murphy MD [facility] - In-person encounter Office Visit John Murphy MD [facility] - In-person encounter Office Visit John Murphy MD [facility] ClaudicationPeripheral artery disease, mild - In-person encounter Office Visit John Murphy MD [facility] CAD--cath mild CAD, presevered EF, ardiomyopathy -Ef nlDeconditioning- related to recent hospitalization - In-person encounter Office Visit John Murphy MD [facility] CAD--cath mild CAD, presevered EF, 05/2022 - In-person encounter Office Visit John Murphy MD [facility] - In-person encounter Office Visit John Murphy MD [facility] - In-person encounter Office Visit John Murphy MD [facility] - In-person encounter Office Visit John Murphy MD [facility] - In-person encounter Office Visit John Murphy MD [facility] - In-person encounter Office Visit John Murphy MD [facility] EdemaWheezing - In-person encounter Office Visit John Murphy MD [facility] - In-person encounter Office Visit John Murphy MD [facility] - In-person encounter Office Visit John Murphy MD [facility] - In-person encounter Office Visit John Murphy MD [facility] - In-person encounter Office Visit John Murphy MD [facility] - In-person encounter Office Visit John Murphy MD [facility] - In-person encounter Office Visit John Murphy [facility] - In-person encounter Office Visit John Murphy MD [facility] DVT - In-person encounter Office Visit John Murphy MD [facility] - In-person encounter Office Visit John Murphy MD [facility] - In-person encounter Office Visit John Murphy MD [facility] - In-person encounter Office Visit John Murphy MD [facility] CAD--cath mild CAD, presevered EF, 3Cardiomyopathy -Ef nl - In-person encounter Office Visit John Murphy MD [facility] Hyperlipidemia - In-person encounter Office Visit John Murphy MD [facility] CAD--cath mild CAD, presevered EF, 3Cardiomyopathy -Ef nlDiastolic CHFHyperlipidemiaHTN essential - In-person encounter Office Visit John Murphy MD [facility] CHEST PAIN-11/06 NUC INF WALL ISCHEMIACAD--cath mild CAD, presevered EF, 05/2022 - In-person encounter Office Visit John Murphy MD [facility] - In-person encounter Office Visit John Murphy MD [facility] ARTHRITISASTHMA VITAL SIGNS Date Observation Value [...] elif Carreon oxygen saturation, oximetry 97 % [facility] pulse rate 87 /min [facility] blood pressure, cuff size regular Dash macarena Carreon weight E&M 237.4 [lb_av] [facility] height E&M 64 [in_i] [facility] Body Mass Index (Ratio) 40.33 kg/m2 Thomas Murphy MD blood pressure, diastolic 77 mm[Hg] Roxanne Dior blood pressure, systolic 134 mm[Hg] Vip in [facility], oximetry 96 % [facility] respiratory rate E&M 16 /min Khanh M [facility] pulse rate 78 /min Khanh [facility] blood pressure, cuff size regular Roxnane Dior weight E&M 235 [lb_av] Khanh [facility] height E&M 64 [in_i] [facility] Body Mass Index (Ratio) 39.48 kg/m2 Isidro Nunes blood pressure, cuff size regular Fa [facility] blood pressure, diastolic 69 mm[Hg] [facility] blood pressure, systolic 125 mm[Hg] [facility] oxygen saturation, oximetry 96 % [facility] pulse rate 83 /min [facility] weight E&M 230 [lb_av] [facility] respiratory rate E&M 16 /min [facility] height E&M 64 [in_i] [facility] Body Mass Index (Ratio) 41.88 kg/m2 [facility] pulse rate 90 /min [facility] blood pressure, cuff size regular [facility] blood pressure, diastolic 74 mm[Hg] [facility] blood pressure, systolic 146 mm[Hg] [facility] oxygen saturation, oximetry 94 % [facility] respiratory rate E&M 16 /min [facility] weight E&M 244 [lb_av] [facility] height E&M 64 [in_i] [facility] Body Mass Index (Ratio) 39.92 kg/m2 [facility] nelida [facility] blood pressure, diastolic 74 mm[Hg] susanna Anderson blood pressure, systolic 134 mm[Hg] She rojelio Anderson pulse rate 72 /min Ena Andesron respiratory rate E&M 20 /min Ena Anderson [...] kg/m2 Isidro Manju blood pressure, resting Yes Buckner kaplan [place] blood pressure, diastolic 90 mm[Hg] Li nkLogic blood pressure, systolic 160 mm[Hg] Hortencia kLogic blood pressure, diastolic 90 mm[Hg] Ma rsha [place] blood pressure, systolic 160 mm[Hg] [facility] [place] oxygen saturation, oximetry 95 % Celsa [...] er height E&M 64 [in_i] Yvonne Rainey [facility] Body Mass Index (Ratio) 40.85 kg/m2 Thomas Murphy MD blood pressure, diastolic 77 mm[Hg] Cy luda Anglin blood pressure, systolic 170 mm[Hg] Lucinda ashish Anglin blood pressure, cuff size regular Cy tammiegaarie Anglin pulse rate 102 /min Dayan Campbel [...] sofy weight E&M 239 [lb_av] Maureen Johnston [facility] height E&M 64 [in_i] Maureen Johnston [facility] Body Mass Index (Ratio) 24.20 kg/m2 Thomas [...] as % of total hemoglobin 5.3 % [facility] 0 LDL cholesterol, serum 136 mg/dL [facility] 5 anion gap, serum 9 [facility] 5 calcium, serum 9.2 mg/dL [facility] Leonardo 5 blood glucose, fasting 104 mg/dL [facility] 5 creatinine, serum 0.8 mg/dL [facility] 5 urea nitrogen, blood 17 mg/dL [facility] 5 carbon dioxide, serum, total 31 mmol/L [facility] 5 chloride, serum 103 mmol/L [facility] 5 potassium, serum 4.1 mmol/L [facility] 5 sodium, serum 138 mmol/L [facility] 5 platelet count 243 10*3/uL Alannah Patterson 5 red blood cell distribution width 13.4 % Alannah Patterson 5 mean corpuscular hemoglobin concentration, RBC 33.3 g/dL Alannah Patterson 5 mean corpuscular hemoglobin, RBC 28.4 pg Alannah Patterson 5 mean corpuscular volume, RBC 85.3 fL Alannah Patterson 5 hematocrit, blood 34.4 % Alannah Patterson 5 hemoglobin, blood 11.4 g/dL [facility] erythrocyte (RBC) count 4.03 10*6/mm3 Alannah [...] 1 tablet by mouth once daily - [facility] atorvastatin 40 mg tablet active TAKE 1 TABLET BY MOUTH EVERY NIGHT [facility] Plavix 75 mg tablet completed Take 1 tablet by mouth once a day - [facility] Dulera 200-5 mcg/actuation HFA aerosol inhaler active Isidro Nunes baclofen 10 mg tablet active Isidro Nunes furosemide 40 mg tablet active Take 2 tablet by mouth twice a day Isidro Nunes KEFLEX 500 MG ORAL CAPSULE completed one tablet 4 times a day for 1 week - Dayan Anglin sertraline 50 mg tablet active Take 1 tablet by mouth once a day Isidroyenin Nunes RANITIDINE HCL 300 MG ORAL TABLET [...] shot a month - Do Brant butalbital-acetam [id number] mg capsule completed capsule by mouth twice [...] - Kade Madera RN per bottle ENABLEX [id number] completed 15mg 1 daily - Kade Madera [...] E&M revi ewed - no changes required Jonh Murphy MD physical exercise, f requency, days [...] Kay Hong smoking status Never smoker Kay aHl social history reviewed E&M revi ewed - [...] averag e drinks per day no Celsa Cetneno'Tadeo smoking status Never smoker Celsa Centeno'Tadeo social [...] Payer name Policy type / Coverage type [place] red democrat [place] [facility] (2) Medicaid [id number] ADVANCE DIRECTIVES Name Date DISCUSSED - NO DECISION MADE TREATMENT PLAN Date Name Performer [id number],S, Isidro Ferminmedza i [id number],S, Isidro Ferminmedza i [id number],S, Isidro Ahmedza i [id number],S, Isidro Ahmedza i [id number],S, Isidro Ahmedza i [id number],S, Isidro Ahmedza i [id number],S, Isidro Ahmedza i [id number],S, Isidro Ahmedza i [id number],S, Isidro Ahmedza i [id number],S, Isidro Ahmedza i [id number],S, Isidro Ahmedza i [id number],S, Isidro Ahmedza i [id number],S, Isidro Ahmedza i [id number],S, Isidro Ahmedza i [id number],S, Isidro Ahmedza i [id number],S, Isidro Ahmedza i [id number],S, Isidro Ahmedza i [id number],S, Isidro Ahmedza i [id number],S, Isidro Ahmedza i [id number],S, Isidro Ahmedza i [id number],S, Isidro Ahmedza i [id number],S, Isidro Ahmedza i [id number],S, Isidro Ahmedza i [id number],S, Isidro Ahmedza i [id number],S, Isidro Ahmedza i [id number],S, Isidro Ahmedza i [id number],S, Isidro Ahmedza i [id number],S, Isidro Ahmedza i [id number],S, Isidro Ahmedza i [id number],S, John Murphy MD [id number],S, John Murphy MD [id number],W, John Murphy MD [id number],S, John Murphy MD [id number],S, John Murphy MD [id number],S, Isidro Juanitasarahy i [id number],S, Isidro Negro i [id number],S, Isidro Tom i [id number],S, Isidro Tom i [id number],S, Isidro Tom i [id number],S, Isidro Ferminjermaine i Cardiology: H er updated [...] day Orders: C OMPREHENSIVE METABOLIC PANEL, W/EGFR (81416) C BC (INCLUDES DIFF/PLT) (6399) F ERRITIN (457) I ELIF AND TOTAL IRON BINDING CAPACITY (7573) P ROBNP, N TERMINAL (96186) John Murphy MD Cardiology: H er updated [...] ems Orders: C OMPREHENSIVE METABOLIC PANEL, W/EGFR (40116) C BC (INCLUDES DIFF/PLT) (6399) F ERRITIN (457) I ELIF AND TOTAL IRON BINDING CAPACITY (7573) P ROBNP, N TERMINAL (41458) Isidro Nunes Cardiology: B P today: 167/79 P rior BP: 134/77 (01/04/2024) Labs Reviewed: C reat: 0.8 (12/11/2009) L DL: 136 (09/06/2017) Her updated medication list for this problem includes: Furosemide 40 Mg Tablet (Furosemide) ..... Take 2 tablet by mouth twice a day Orders: C OMPREHENSIVE METABOLIC PANEL, W/EGFR (32594) C BC (INCLUDES DIFF/PLT) (6399) F ERRITIN (457) I ELIF AND TOTAL IRON BINDING CAPACITY (7573) P ROBNP, N TERMINAL (55137) [facility] Cardiology: H er updated medication list for this problem includes: Clopidogrel 75 Mg Tablet (Clopidogrel) ..... Take 1 tablet by mouth once a day Orders: C OMPREHENSIVE METABOLIC PANEL, W/EGFR (07171) C BC (INCLUDES DIFF/PLT) (6399) F ERRITIN (457) I ELIF AND TOTAL IRON BINDING CAPACITY (7573) P ROBNP, N TERMINAL (58988) [facility] Cardiology: H er updated medication list for [...] ems Orders: C OMPREHENSIVE METABOLIC PANEL, W/EGFR (25559) C BC (INCLUDES DIFF/PLT) (6399) F ERRITIN (457) I ELIF AND TOTAL IRON BINDING CAPACITY (7573) P ROBNP, N TERMINAL (69324) [facility] Cardiology: H er updated medication list for this problem includes: Atorvastatin 40 Mg Tablet (Atorvastatin) ..... Take 1 tablet by mouth every night Orders: C OMPREHENSIVE METABOLIC PANEL, W/EGFR (59830) C BC (INCLUDES DIFF/PLT) (6399) F ERRITIN (457) I ELIF AND TOTAL IRON BINDING CAPACITY (7573) P ROBNP, N TERMINAL (51584) [facility] Cardiology: H er updated medication list for this problem includes: Clopidogrel 75 Mg Tablet (Clopidogrel) ..... Take 1 tablet by mouth once a day Nitroglycerin 0.4 Mg Tablet, Sublingual (Nitroglycerin) ..... Dissolve one tablet sublingually every 5 minutes up to three times as needed for chest pain then call ems Orders: C OMPREHENSIVE METABOLIC PANEL, W/EGFR (21895) C BC (INCLUDES DIFF/PLT) (6399) F ERRITIN (457) I ELIF AND TOTAL IRON BINDING CAPACITY (7573) P ROBNP, N TERMINAL (90021) Isidro Nunes Cardiology: H er updated medication [...] ems Orders: C OMPREHENSIVE METABOLIC PANEL, W/EGFR (42383) C BC (INCLUDES DIFF/PLT) (6399) F ERRITIN (457) I ELIF AND TOTAL IRON BINDING CAPACITY (7573) P ROBNP, N TERMINAL (17976) Isidro Nunes Cardiology:This visi t has been [...] by mouth once a day [facility] Cardiology: H er updated medication list for this problem includes: Atorvastatin 40 Mg Tablet (Atorvastatin) ..... Take 1 tablet by mouth every night [facility] Cardiology: H er updated medication list for [...] chest pain then call ems [facility] Cardiology: H er updated medication list for this problem includes: Clopidogrel 75 Mg Tablet (Clopidogrel) ..... Take 1 tablet by mouth once a day Nitroglycerin 0.4 Mg Tablet, Sublingual (Nitroglycerin) ..... Dissolve one tablet sublingually every 5 minutes up to three times as needed for chest pain then call ems [facility] Cardiology: H er updated medication list for this problem includes: Clopidogrel 75 Mg Tablet (Clopidogrel) ..... Take 1 tablet by mouth every day Nitroglycerin 0.4 Mg Tablet, Sublingual (Nitroglycerin) ..... Dissolve one tablet sublingually every 5 minutes up to three times as needed for chest pain then call ems [facility] Cardiology: H er updated medication list for [...] chest pain then call ems [facility] Cardiology: H er updated medication list for this problem includes: Atorvastatin 40 Mg Tablet (Atorvastatin) ..... Take 1 tablet by mouth every night [facility] Cardiology: B P today: 125/69 P rior BP: 146/74 (06/06/2023) Labs Reviewed: C reat: 0.8 (12/11/2009) L DL: 136 (09/06/2017) Her updated medication list for this problem includes: Furosemide 40 Mg Tablet (Furosemide) ..... Take 1 tablet by mouth twice a day [facility] Cardiology: H er updated medication list for this problem includes: Clopidogrel 75 Mg Tablet (Clopidogrel) ..... Take 1 tablet by mouth every day [facility] Cardiology: H er updated medication list for [...] Isidro taylorzai Cardiology Isidro medzai Cardiology [facility]:add lasix 4 0 mg in the afternoon , continue lasix 80 mg in am [facility] Isidro medzageraldo Cardiology Isidro Christensenmedzai Cardiology Isidro Ahmedzageraldo Cardiology Isidro Ahmedzai Cardiology Isidro Ahmedzai Cardiology Isidro Christensenmedzai Cardiology Isidro Ahmedzai Cardiology Isidro Ahmedzai Cardiology Isidro medzai Cardiology Siidro Ahmedzai Cardiology Isidro Ahmedzai Cardiology Isidro Ahmedzai [...] John ingram MD Cardiology follow up John nigram MD Cardiology follow up John ingram MD [...] John ingram MD Cardiology follow up Mingicarolyn ingrma MD Cardiology follow up Mingicarolyn ingram MD [...] of 50%. Continue aggressive risk factor modifications. [facility] (12/16/2009) H gb: 11.4 (12/11/2009) HCT: 34.4 [...] of 50%. Continue aggressive risk factor modifications. [facility] (12/16/2009) H gb: 11.4 (12/11/2009) HCT: 34.4 [...] Echo 6 minute walk test DLCO - 02595 FRC - 02286 FVC - 64496 PROBNP, N TERMINAL TSH, 3RD GENERATION W/REFLEX [...] completed EKG John Murphy MD completed SNOMED-CT: 511670344 [id number] Current Medications Documented John Murphy MD completed SNOMED-CT: 35674580 Physical Exam, Performed: Pulse Exam of Foot John Murphy MD completed SNOMED-CT: 672207949 304268 Current Medications Documented John Murphy MD completed SNOMED-CT: 45675139 Physical Exam, Performed: Pulse Exam of Foot John Murphy MD completed SNOMED-CT: 64351237 Physical Exam, Performed: Pulse Exam of Foot John Murphy MD completed SNOMED-CT: 490732972 834938 Current Medications Documented John Murphy MD completed SNOMED-CT: 54373009 Physical Exam, Performed: Pulse Exam of Foot John Murphy MD completed EKG John Murphy MD completed SNOMED-CT: 933530298 077426 Current Medications Documented John Murphy MD completed SNOMED-CT: 22503982 Physical Exam, Performed: Pulse Exam of Foot John Murphy MD completed SNOMED-CT: 605504101 519606 Current Medications Documented John Murphy MD completed
[2024-11-15] MEDS: ALBUTEROL SULFATE (*SP) AEROSOL 1 PUFF INHALATION ×2 (12:10→20:57)
[2024-11-15] MEDS: FLUTICASONE/SALMETEROL 230-21 MCG INHALER 1 PUFF 2 PUFF INHALATION (20:57)
[2024-11-16] MEDS: ONDANSETRON HCL ODT 4 MG TABLET PO ×3 (00:34→18:29)
--- NOTE | 2024-11-16 00:55 | PCRCNOTE ---
Patient states she only uses her albuterol inhaler at home prn. Pt states she does not need it at this time.
[2024-11-16] MEDS: ALBUTEROL SULFATE (*SP) AEROSOL 1 PUFF INHALATION ×3 (04:04→11:49)
[2024-11-16 04:57] VITALS: BP 109/58; PULSE 66; RESP 17; TEMP 36.7; O2SAT 95
[2024-11-16] MEDS: SODIUM CHLORIDE 0.9% IV 1,000 ML 75 ML IV CONT ×2 (06:14→18:29)
--- NOTE | 2024-11-16 07:03 | P.PNIM_ITS ---
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: Code(s): M97.8XXA - Periprosthetic fracture around other internal prosthetic joint, initial encounter; Z96.649 - Presence of unspecified artificial hip joint Status: Acute Assessment and Plan: * Hip XR: Likely periprosthetic fracture of the greater and lesser trochanter as well as the left iliac bone * Denies recent falls but states she fell several months ago after previous hip surgery * Pain to palpation of left hip, also difficulty with lifting left leg due to pain * ER discussed with ammonia solution preparer Ortho * Give chronicity of injury + ambulatory status, no intervention indicated at this time * Follow up with ortho in out-pt setting * PT/OT eval * Working with CC regarding [facility] vs SNF vs home health (4) Debility: Code(s): R53.81 - Other malaise Status: Acute Assessment and Plan: * See above (5) Electrolyte abnormality: Code(s): E87.8 - Other disorders of electrolyte and fluid balance, not elsewhere classified Status: Acute Assessment and Plan: * Upon admission, Na 133, K 3.6 * On 11/16, Na 133 and K 3.1 * Will supplement K with 40meq oral K * Monitor fluid status and sodium * Monitor daily labs Plan DVT Prophylaxis: SCDs, no thinners given h/o falls Subjective Date/time seen: 11/16/24 07:03 Interval history: 74-year-old female with a past medical history of CAD, CHF, HTN, asthma, and debility w/ normal ambulation with a walker presents to the hospital for weakness and difficulty ambulating. Patient states that she had surgery on her left hip in May and had two falls, one in May and the other in June, and was never seen by her orthopedic surgeon after these falls. 11/16/2024 Pt sitting comfortably in bed at time of exam. Denies any cp, sob, n/v, abdominal pain at this time. No hip pain on exam. Worked with PT/OT this AM, was max assist. Pt would benefit from SNF/[facility], however it has been difficult to work with patient regarding out options as she has had problems with previous nursing facilities, but she is amenable to finding another rehab facility. Urine culture Susceptibility still pending at this time, will continue treating UTI while waiting on SNF placement. Review of Systems Review of Systems: All systems reviewed & are unremarkable except as noted in HPI and below Exam Narrative: Gen - ill appearing female in no acute respiratory distress who is nontoxic- appearing lying semi recumbent in bed HEENT - normocephalic. Atraumatic. Pupils equal round and reactive. Extraocular motions intact. Sclera clear and anicteric. Nares patent. Moist mucous membranes. Tongue was midline. No facial asymmetry. Neck - neck was supple. No dominant adenopathy, thyromegaly or masses. 2+ carotid upstrokes without bruits. Chest - lungs are clear to auscultation bilaterally. No wheezes or crackles. Breast exam was deferred. CV - heart was regular rate and rhythm. S1-S2. No murmurs gallops or rubs. Abd - abdomen was soft. Nontender. Nondistended. Positive bowel sounds. No organomegaly or masses. Ext - Bilateral lower extremity non-pitting lymphedema. Difficulty raising left leg. No difficulty/pain with lifting of right leg. No pain on palpation of hip. No overlying skin changes on hip. 2+ DP pulses bilaterally. Neuro - patient is alert and oriented x4. Strength is 5/5 in both upper and lower extremities. Cranial nerves 2-12 are intact. Speech is clear. Psych - normal mood and affect. Patient is pleasant and cooperative. Skin - warm and dry. No rashes noted. Objective Data Vital Signs Vital Signs: Vital Signs - 24 hr 11/15/24 09:00 11/15/24 12:13 11/15/24 12:14 Temperature Pulse Rate 71 Respiratory Rate 18 Blood Pressure Pulse Oximetry 93 Oxygen Delivery Room Air Room Air 11/15/24 13:01 11/15/24 13:54 11/15/24 14:00 Temperature 97.8 F Pulse Rate 76 Respiratory Rate 20 Blood Pressure 107/69 Pulse Oximetry 100 Oxygen Delivery Room Air Room Air 11/15/24 19:49 11/15/24 20:58 11/16/24 04:57 Temperature 98.1 F 98.0 F Pulse Rate 79 66 Respiratory Rate 18 17 Blood Pressure 105/47 L 109/58 L Pulse Oximetry 97 96 95 Oxygen Delivery Room Air Intake/Output Intake/Output: Intake & Output 11/13/24 11/14/24 11/15/24 11/16/24 23:59 23:59 23:59 23:59 Intake Total 2280 150 Output Total 200 700 600 Balance -200 1580 -450 Meds/Results Medications: Active Medications Generic Name Dose Route Start Last Admin Trade Name Freq PRN Reason Stop Dose Admin Acetaminophen 650 mg 11/15/24 01:21 Acetaminophen 325 Mg Tablet PO Q4H PRN Mild Pain (1-3) or Fever Hydrocodone Bitart/Acetaminophen 1 tab 11/15/24 01:21 11/15/24 18:35 Hydrocodone/Acetaminophen (*Crx) 5-325 Mg Tablet PO 1 tab Q4H PRN Administration Pain Rated 4-6 Albuterol 1 puff 11/15/24 08:00 11/16/24 04:04 Albuterol Sulfate (*Sp) Aerosol 1 Puff INHALATION 1 puff Q4HRT ELDER Administration Aspirin 81 mg 11/15/24 09:00 11/15/24 09:01 Aspirin 81 Mg Enteric Tablet PO 81 mg DAILY ELDER Administration Atorvastatin Calcium 40 mg 11/15/24 09:00 11/15/24 09:01 Atorvastatin 40 Mg Tablet PO 40 mg DAILY ELDER Administration Baclofen 10 mg 11/15/24 08:15 Baclofen 10 Mg Tablet PO Q8H PRN muscle spasm Buspirone HCl 15 mg 11/15/24 09:00 11/15/24 17:16 Buspirone Hcl 5 Mg Tablet PO 15 mg BID ELDER Administration Clopidogrel Bisulfate 75 mg 11/15/24 09:00 11/15/24 09:01 Clopidogrel Bisulfate 75 Mg Tablet PO 75 mg DAILY ELDER Administration Cyclobenzaprine HCl 10 mg 11/15/24 09:00 11/15/24 09:01 Cyclobenzaprine Hcl 10 Mg Tablet PO 10 mg DAILY ELDER Administration Ferrous Sulfate 325 mg 11/15/24 09:00 11/15/24 09:01 Ferrous Sulfate [address] PO 325 mg DAILY ELDER Administration Furosemide 40 mg 11/15/24 09:00 11/15/24 09:01 Furosemide 40 Mg Tablet PO 40 mg QAM ELDER Administration Gabapentin 600 mg 11/15/24 09:00 11/15/24 17:16 Gabapentin 300 Mg Capsule PO 600 mg TID ELDER Administration Ceftriaxone Sodium 1 gm in 50 mls @ 100 mls/hr 11/15/24 21:00 11/15/24 21:24 Rocephin 1 Gm/Ns 50 Ml IVPB Infused Q24H ELDER Infusion Sodium Chloride 1,000 mls @ 75 mls/hr 11/15/24 08:15 11/16/24 06:14 Normal Saline Iv IV CONT 75 mls/hr .[id number] ELDER Administration Loperamide HCl 2 mg 11/15/24 09:00 11/15/24 09:02 Loperamide Hcl 2 Mg Capsule PO 2 mg DAILY ELDER Administration Montelukast Sodium 10 mg 11/15/24 09:00 11/15/24 09:02 Montelukast Sodium 10 Mg Tablet PO 10 mg DAILY ELDER Administration Nitroglycerin 0.4 mg 11/15/24 08:15 Nitroglycerin Sl 0.4 Mg Tablet SUBLINGUAL Q5M PRN chest pain Ondansetron HCl 4 mg 11/15/24 09:00 11/16/24 00:34 Ondansetron Hcl Odt 4 Mg Tablet PO 4 mg Q8H ELDER Administration Pantoprazole Sodium 40 mg 11/15/24 09:00 11/15/24 09:02 Pantoprazole 40 Mg Tablet PO 40 mg DAILY ELDER Administration Potassium Chloride 20 meq 11/15/24 09:00 11/15/24 09:02 Potassium Chloride 20 Meq Er Tablet PO 12/15/24 08:59 20 meq DAILY ELDER Administration Fluticasone/Salmeterol 2 puff 11/15/24 08:40 11/15/24 20:57 Fluticasone/Salmeterol 230-21 Mcg Inhaler 1 Puff INHALATION 2 puff Q12HRT ELDER Administration Sertraline HCl 100 mg 11/15/24 09:00 11/15/24 09:02 Sertraline Hcl 50 Mg Tablet PO 100 mg DAILY ELDER Administration Radiology Results: ITS Impressions Chest X-Ray 11/14/24 21:37 IMPRESSION: Mild pulmonary vascular congestion, without focal infiltrate. Hip/Pelvis X-Ray 11/14/24 23:16 IMPRESSION: Likely periprosthetic fracture of the greater and lesser trochanter as well as the left iliac bone, as detailed above. Quality VTE Prophylaxis VTE prophylaxis: mechanical ordered
[2024-11-16 07:43] LABS: Basophils Percent Auto 1.1 % (0.2-1.2); Eosinophils Absolute Auto 0.1 K/mm3 (0-0.3); Eosinophils Percent Auto 3.8 % (0-4.4); Hematocrit 30.6 % (37.0-47.0); Hemoglobin 9.5 g/dL (12.0-15.0); Immature Granulocyte Absolute 0.03 K/mm3 (0.00-0.031); Immature Granulocyte Percent A 0.8 % (0-0.5); Lymphocytes Absolute Auto 0.83 K/mm3 (0.9-3.2); Lymphocytes Percent Auto 22.4 % (18.3-44.2); Mean Corpuscular Hemoglobin 29.4 pg (26-34); Mean Corpuscular Volume 94.7 fl (80-100); Mean Platelet Volume 8.8 fl (7.4-10.4); Monocytes Absolute Auto 0.4 K/mm3 (0.1-0.6); Monocytes Percent Auto 9.4 % (2.6-8.5); Neutrophils Absolute Auto 2.3 K/mm3 (1.3-6.7); Neutrophils Percent Auto 62.5 % (45.5-73.1); Platelet Count Result 200 k/mm3 (150-375); Red Blood Count 3.23 M/mm3 (4.2-5.4); White Blood Count 3.7 K/mm3 (4.5-10.0)
[2024-11-16 08:07] LABS: Alanine Aminotransferase 16 U/L (6-35); Albumin Level 2.7 g/dL (3.5-5.1); Alkaline Phosphatase 120 U/L (38-126); Anion Gap 5 mmol/L (4-12); Aspartate Amino Transferase 25 U/L (14-36); Bilirubin,Total 0.2 mg/dL (0.2-1.3); Blood Urea Nitrogen 17 mg/dL (7-17); Calcium 8.4 mg/dL (8.4-10.2); Carbon Dioxide 27 mmol/L (22-30); Chloride 101 mmol/L (98-107); Estimated CRCL calculation 72 ml/min; Estimated Glomerular Filt Rate > 60; Glucose 100 mg/dL (65-110); Potassium 3.1 mmol/L (3.4-5.0); Sodium 133 mmol/L (137-145); Total Protein 5.4 g/dL (6.3-8.2)
[2024-11-16] MEDS: SERTRALINE HCL 50 MG TABLET 100 MG PO (08:11)
[2024-11-16] MEDS: FERROUS SULFATE 325 MG TABLET DR PO (08:11)
[2024-11-16] MEDS: ASPIRIN 81 MG ENTERIC TABLET PO (08:11)
[2024-11-16] MEDS: ATORVASTATIN 40 MG TABLET PO (08:11)
[2024-11-16] MEDS: busPIRone HCL 5 MG TABLET 15 MG PO ×2 (08:11→18:29)
[2024-11-16] MEDS: LOPERAMIDE HCL 2 MG CAPSULE PO (08:11)
[2024-11-16] MEDS: PANTOPRAZOLE 40 MG TABLET PO (08:11)
[2024-11-16] MEDS: POTASSIUM CHLORIDE 20 MEQ ER TABLET PO (08:11)
[2024-11-16] MEDS: MONTELUKAST SODIUM 10 MG TABLET PO (08:12)
[2024-11-16] MEDS: CLOPIDOGREL BISULFATE 75 MG TABLET PO (08:12)
[2024-11-16] MEDS: HYDROcodone/acetaminophen (*CRX) 5-325 MG TABLET 1 TAB PO ×2 (08:12→21:30)
[2024-11-16] MEDS: GABAPENTIN 300 MG CAPSULE 600 MG PO ×3 (08:12→18:29)
[2024-11-16] MEDS: CYCLOBENZAPRINE HCL 10 MG TABLET PO (08:12)
[2024-11-16] MEDS: FUROSEMIDE 40 MG TABLET PO (08:12)
[2024-11-16 08:43] VITALS: PULSE 71; RESP 20; O2SAT 92
[2024-11-16] MEDS: POTASSIUM CHLORIDE 20 MEQ ER TABLET 40 MEQ PO (08:59)
[2024-11-16] MEDS: FLUTICASONE/SALMETEROL 230-21 MCG INHALER 1 PUFF 2 PUFF INHALATION (11:49)
[2024-11-16 11:50] VITALS: PULSE 72; RESP 20
[2024-11-16 14:00] VITALS: BP 115/48; PULSE 77; RESP 18; TEMP 36.6; O2SAT 98
[2024-11-16 20:00] VITALS: PULSE 65; RESP 18; O2SAT 97
[2024-11-16] MEDS: CEFDINIR 300 MG CAPSULE PO (20:12)
[2024-11-16 20:55] VITALS: BP 110/54; PULSE 65; RESP 18; TEMP 36.5; O2SAT 97
[2024-11-17 05:42] VITALS: BP 115/58; PULSE 67; RESP 18; TEMP 36.3; O2SAT 95
[2024-11-17 07:23] LABS: Basophils Percent Auto 0.7 % (0.2-1.2); Eosinophils Absolute Auto 0.2 K/mm3 (0-0.3); Eosinophils Percent Auto 4.5 % (0-4.4); Hematocrit 30.7 % (37.0-47.0); Hemoglobin 9.5 g/dL (12.0-15.0); Immature Granulocyte Absolute 0.03 K/mm3 (0.00-0.031); Immature Granulocyte Percent A 0.7 % (0-0.5); Lymphocytes Absolute Auto 0.92 K/mm3 (0.9-3.2); Lymphocytes Percent Auto 21.9 % (18.3-44.2); Mean Corpuscular HGB Conc 30.9 g/dl (32-36); Mean Corpuscular Hemoglobin 29.1 pg (26-34); Mean Corpuscular Volume 93.9 fl (80-100); Mean Platelet Volume 8.7 fl (7.4-10.4); Monocytes Absolute Auto 0.5 K/mm3 (0.1-0.6); Monocytes Percent Auto 11.4 % (2.6-8.5); Neutrophils Absolute Auto 2.6 K/mm3 (1.3-6.7); Neutrophils Percent Auto 60.8 % (45.5-73.1); Platelet Count Result 205 k/mm3 (150-375); Red Blood Count 3.27 M/mm3 (4.2-5.4); White Blood Count 4.2 K/mm3 (4.5-10.0)
[2024-11-17] MEDS: FLUTICASONE/SALMETEROL 230-21 MCG INHALER 1 PUFF 2 PUFF INHALATION ×2 (07:43→20:11)
[2024-11-17 07:44] LABS: Alanine Aminotransferase 17 U/L (6-35); Albumin Level 2.7 g/dL (3.5-5.1); Alkaline Phosphatase 111 U/L (38-126); Anion Gap 5 mmol/L (4-12); Aspartate Amino Transferase 25 U/L (14-36); Bilirubin,Total 0.3 mg/dL (0.2-1.3); Blood Urea Nitrogen 13 mg/dL (7-17); Calcium 8.5 mg/dL (8.4-10.2); Carbon Dioxide 27 mmol/L (22-30); Chloride 100 mmol/L (98-107); Estimated CRCL calculation 79 ml/min; Estimated Glomerular Filt Rate > 60; Glucose 99 mg/dL (65-110); Potassium 3.4 mmol/L (3.4-5.0); Sodium 132 mmol/L (137-145); Total Protein 5.5 g/dL (6.3-8.2)
[2024-11-17 07:45] VITALS: O2SAT 91
[2024-11-17] MEDS: HYDROcodone/acetaminophen (*CRX) 5-325 MG TABLET 1 TAB PO ×2 (08:47→14:18)
[2024-11-17] MEDS: ONDANSETRON HCL ODT 4 MG TABLET PO (08:48)
[2024-11-17] MEDS: PANTOPRAZOLE 40 MG TABLET PO (08:48)
[2024-11-17] MEDS: ATORVASTATIN 40 MG TABLET PO (08:48)
[2024-11-17] MEDS: POTASSIUM CHLORIDE 20 MEQ ER TABLET PO (08:48)
[2024-11-17] MEDS: SERTRALINE HCL 50 MG TABLET 100 MG PO (08:48)
[2024-11-17] MEDS: FUROSEMIDE 40 MG TABLET PO (08:49)
[2024-11-17] MEDS: GABAPENTIN 300 MG CAPSULE 600 MG PO ×3 (08:49→17:22)
[2024-11-17] MEDS: MONTELUKAST SODIUM 10 MG TABLET PO (08:49)
[2024-11-17] MEDS: CYCLOBENZAPRINE HCL 10 MG TABLET PO (08:49)
[2024-11-17] MEDS: CLOPIDOGREL BISULFATE 75 MG TABLET PO (08:49)
[2024-11-17] MEDS: busPIRone HCL 5 MG TABLET 15 MG PO ×2 (08:50→17:22)
[2024-11-17] MEDS: ASPIRIN 81 MG ENTERIC TABLET PO (08:50)
[2024-11-17] MEDS: CEFDINIR 300 MG CAPSULE PO (08:52)
[2024-11-17] MEDS: FERROUS SULFATE 325 MG TABLET DR PO (12:16)
--- NOTE | 2024-11-17 12:37 | PM.DS ---
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: Code(s): M97.8XXA - Periprosthetic fracture around other internal prosthetic joint, initial encounter; Z96.649 - Presence of unspecified artificial hip joint Status: Acute (4) Debility: Code(s): R53.81 - Other malaise Status: Acute (5) Electrolyte abnormality: Code(s): E87.8 - Other disorders of electrolyte and fluid balance, not elsewhere classified Status: Acute DS: Summary Hospital Course Reason for hospitalization: Weakness Hospital Course: Kamilah Hale is a 74-year-old female with a past medical history of CAD, CHF, HTN, asthma, and debility w/ normal ambulation with a walker presents to the hospital for weakness and difficulty ambulating. Patient states that she had surgery on her left hip in May and had two falls, one in May and the other in June, and was never seen by her orthopedic surgeon after these falls. She denies any falls since then, and has been using Tylenol for p.r.n. pain control with little to no relief. Patient states that the pain is there when she walks or moves her left leg, but is better at rest. She endorses difficulty with ambulation, but states that she still moves around the house with a walker. Denies any chest pain, shortness a breath, nausea/vomiting, abdominal pain, lower back pain, or urinary/bowel changes. She denies any recent falls within the past few months, and denies any head trauma with her previous 2 falls in May/June. Denies any loss of consciousness. She is not on anticoagulation at this time. Denies neuropathy and has good distal range of motion and pulses. Family is concerned that they were not able take care of her at home and patient agrees with rehabilitation, but denies wanting to be in a intermediate. In ED: 36.4C, 91 HR, 19 RR, 125/72, 98% on RA WBC 9.7, RBC 54.18, Hgb 12.1, Hct 38.5, Plt 286, Na 133, K 3.6, BUN 29, Cr 1.76, AST 41, ALT 24, Alk Phos 235, BNP 232 UA: 2+ Leuk esterase, 11-20 WBC, 4+ Bacteria Hip XR: Likely periprosthetic fracture of the greater and lesser trochanter as well as the left iliac bone CXR: Mild pulmonary vascular congestion, without focal infiltrate. EKG: NSR, LAD, QTc 492, QT 409 Patients hip x-ray showed periprosthetic fracture of the great and lesser trochanteric and left iliac bone. The ER physician discussed these findings with the on-call orthopedic surgeon who states that given the chronicity of the patient's injury and ambulatory status at there is no acute intervention or consulted needed at this time. He recommended that she follow-up in the outpatient setting with of the orthopedic surgeon that she saw in May. Patient continued to work with PT/OT throughout her hospitalization. She was at e|tab assist and was recommended to be placed for SNF. Urinalysis and urine culture indicative of UTI. Urine culture grows Klebsiella pneumonia with lee susceptibility. Patient was stable for discharge. She has been accepted at [facility]. Plan for discharge on cefdinir for UTI. Status at Discharge Functional status at discharge: uses cane/walker Overall status at discharge: patient is progressing back to baseline Time Spent with Patient Time attestation: Total time spent providing and/or coordinating discharge services: 41 Exam Narrative: Gen - ill appearing female in no acute respiratory distress who is nontoxic-appearing lying semi recumbent in bed HEENT - normocephalic. Atraumatic. Pupils equal round and reactive. Extraocular motions intact. Sclera clear and anicteric. Nares patent. Moist mucous membranes. Tongue was midline. No facial asymmetry. Neck - neck was supple. No dominant adenopathy, thyromegaly or masses. 2+ carotid upstrokes without bruits. Chest - lungs are clear to auscultation bilaterally. No wheezes or crackles. Breast exam was deferred. CV - heart was regular rate and rhythm. S1-S2. No murmurs gallops or rubs. Abd - abdomen was soft. Nontender. Nondistended. Positive bowel sounds. No organomegaly or masses. Ext - Bilateral lower extremity non-pitting lymphedema. Difficulty raising left leg. No difficulty/pain with lifting of right leg. No pain on palpation of hip. No overlying skin changes on hip. 2+ DP pulses bilaterally. Neuro - patient is alert and oriented x4. Strength is 5/5 in both upper and lower extremities. Cranial nerves 2-12 are intact. Speech is clear. Psych - normal mood and affect. Patient is pleasant and cooperative. Skin - warm and dry. No rashes noted. DS: Data Data Completed and Pending Labs on day of discharge: Labs from last 24 hours 11/17/24 07:11 WBC 4.2 L RBC 3.27 L Hgb 9.5 L Hct 30.7 L MCV 93.9 MCH 29.1 MCHC 30.9 L RDW 15.0 H Plt Count 205 MPV 8.7 Immature Gran % (Auto) 0.7 H Neut % (Auto) 60.8 Lymph % (Auto) 21.9 Banner % (Auto) 11.4 H Eos % (Auto) 4.5 H Baso % (Auto) 0.7 Lymph # (Auto) 0.92 Banner # (Auto) 0.5 Eos # (Auto) 0.2 Baso # (Auto) 0.0 Abs Immat Gran (auto) 0.03 Absolute Neuts (auto) 2.6 Absolute Nucleated RBC 0.000 Nucleated RBC % 0.0 Sodium 132 L Potassium 3.4 Chloride 100 Carbon Dioxide 27 Anion Gap 5 BUN 13 Creatinine 0.56 L Estim Creat Clear Calc 79 Estimated GFR > 60 Glucose 99 Calcium 8.5 Total Bilirubin 0.3 AST 25 ALT 17 Alkaline Phosphatase 111 Total Protein 5.5 L Albumin 2.7 L Discharge Plan Discharge Attending physician on discharge: Ash Melgar Consulting providers: Han Magallanes Discharging Clinician: Han Magallanes Anticipated Discharge Date/Time: 11/17/24 12:34 Patient Disposition: SNF Activity: as tolerated Diet: as tolerated Discharge Instructions: Discharge disposition: Stable Take medications as prescribed. You will be prescribed Cefdinir to be taken for 8 additional doses for your UTI. Monitor blood pressures Take caution while standing, rising, or moving Change positions slowly taking a break between each position change If you standing feel dizzy sit back down and take a break Encouraged to continue with yearly vaccinations Return to the emergency department if he developed sudden shortness of breath, chest pain, nausea, vomiting, upset stomach or intractable diarrhea Return to the emergency department if you develop fever greater than 101.5 Follow-up with the primary care physician within 1-2 weeks Thank you for [facility] for your healthcare needs Patient Language: Occitan Stand Alone Forms: General Discharge Information Follow-up/Referrals: UNKNOWN,DOCTOR [Primary Care Provider] - Discharge Medications: New cefdinir 300 mg Capsule 300 mg PO Q12HR Qty: 8 0RF Continued furosemide 40 mg tablet 40 mg PO QAM nitroglycerin 0.4 mg tablet, sublingual 0.4 mg SUBLINGUAL Q5M PRN (Reason: chest pain) montelukast [Singulair] 10 mg tablet 10 mg PO DAILY albuterol sulfate [Ventolin HFA] 90 mcg/actuation HFA aerosol inhaler 1 inhalation INHALATION Q4H buspirone 15 mg tablet 15 mg PO QID ondansetron HCl 4 mg tablet 4 mg PO Q8H pmpkpwjmdy-ffnttobfsjodg-nvyv 50-325-40 mg tablet 1 tablet PO Q6H PRN (Reason: pain) gabapentin 600 mg tablet 300 mg PO Q12H hydrocodone-acetaminophen 10-325 mg tablet 1 tablet PO DAILY PRN (Reason: pain) baclofen 10 mg tablet 10 mg PO Q8H PRN (Reason: muscle spasm) potassium chloride 20 mEq tablet,ER particles/crystals 20 meq PO DAILY sertraline 100 mg tablet 100 mg PO DAILY clopidogrel 75 mg tablet 75 mg PO DAILY Dulera 200-5 mcg/actuation HFA aerosol inhaler 2 inh inhalation Q12H ferrous sulfate [FeroSul] 325 mg (65 mg iron) tablet 325 mg PO DAILY loperamide 2 mg capsule 2 mg PO DAILY pantoprazole 40 mg tablet,delayed release (DR/EC) 40 mg PO DAILY aspirin 81 mg tablet,delayed release (DR/EC) 81 mg PO DAILY atorvastatin 40 mg tablet 40 mg PO DAILY cyclobenzaprine 10 mg tablet 10 mg PO DAILY spironolactone 25 mg tablet 25 mg PO DAILY Date of admission: 11/15/24 10:01 Primary Care Provider: UNKNOWN,DOCTOR Admitting Provider: Angelica Holcomb Attending physician on admission: Angelica Holcomb Condition: Stable Quality VTE Prophylaxis VTE prophylaxis: mechanical ordered"
[2024-11-17 14:00] VITALS: BP 112/54; PULSE 78; RESP 16; TEMP 36.8; O2SAT 97
[2024-11-17 20:11] VITALS: PULSE 78; RESP 18
[2024-11-17 20:17] VITALS: PULSE 78; RESP 18; O2SAT 97
== END 2024-11-17 20:48 ==
LOC: ANHED 22:19 → ANH2MED 11-15 04:35
PROVIDERS: Physician Assistant; Admitting Provider Internal Medicine; Emergency Provider Student in an Organized Health Care Education/Training Program; Visit Provider Internal Medicine
DX: N39.0 Urinary tract infection, site not specified (principal); B96.1 Klebsiella pneumoniae [K. pneumoniae] as the cause of diseases classified elsewhere; N17.9 Acute kidney failure, unspecified; E87.8 Other disorders of electrolyte and fluid balance, not elsewhere classified; M97.02XA Periprosthetic fracture around internal prosthetic left hip joint, initial encounter; Z91.81 History of falling; R53.81 Other malaise; J45.909 Unspecified asthma, uncomplicated; I25.10 Atherosclerotic heart disease of native coronary artery without angina pectoris; I11.0 Hypertensive heart disease with heart failure; I50.9 Heart failure, unspecified; Z79.02 Long term (current) use of antithrombotics/antiplatelets; Z79.51 Long term (current) use of inhaled steroids; Z79.899 Other long term (current) drug therapy; Z88.0 Allergy status to penicillin; Z86.718 Personal history of other venous thrombosis and embolism
CPT/HCPCS: 36415; 71046; 73502; 80053; 81001; 82803; 83880; 85025; 87086; 87186; 93005; 94640; 96360; 96361; 96365; 96366; 97161; 97166; 97530; 99285; A9270; G0378; J0696; J7030; J7120

== ENCOUNTER 2025-04-11 10:46 | Outpatient (NON) | payer OTHER, SELFPAY ==
--- OUTSIDE RECORDS SUMMARY | 2024-07-12 08:20 | XMS_ITS ---
Author Organization [facility] Address [address] [place] [address] Care Team Providers Care Occupational Health Nurse Name Role Phone Rahul Martino Primary Care Provider REASON FOR VISIT F/U hospitalization Zoom appointment. Social History Sex Assigned At : Social History Observation Description Sex Assigned At Female Encounters Encounter Location Date Provider Diagnosis [address] [address] 07/12/2024 Rahul Martino Plan Of Treatment No Information Progress Notes * Kamilah HALE IVDOB:1950 (75 yo F)Acc No.[id number]:07/12/2024 UNLOCKED PROGRESS NOTE Patient: Kamilah IZAGUIRRE IV Provider: Abilio Martino :1950 A ge:74 Y S ex:Female Date:07/12/2024 Address:[address] [place] [address], [address] Subjective: * Chief Complaints: * 1 . F/U hospitalization Zoom appointment.. * Medical History: Objective: * Vitals: Assessment: Plan: * Treatment: * * Electronic signature of Montez Martino , [id number] on 04/11/2025 at 11:47 AM TOWNSHIP SUPERVISOR Sign off status: Pending * Provider: Abilio Martino Date: 0 07/12/2024 Generated for Maurisio antonio/Emerald/eTransmitting on: 1 06/11/2024 11:47 AM TOWNSHIP SUPERVISOR
--- OUTSIDE RECORDS SUMMARY | 2024-09-24 07:40 | XMS_ITS ---
Author Organization [facility] Address [address] [place] [address] Care Team Providers Care Studio Operations Manager Name Role Phone Rahul Martino Primary Care Provider REASON FOR VISIT transfer from [facility] Social History Sex Assigned At : Social History Observation Description Sex Assigned At Female Encounters Encounter Location Date Provider Diagnosis [address] [place] [address] 09/24/2024 Rahul Martino Plan Of Treatment No Information Progress Notes * Kamilah HALE IVDOB:1950 (75 yo F)Acc No.[id number]:09/24/2024 UNLOCKED PROGRESS NOTE Progress Notes Patient: Kamilah IZAGUIRRE IV Provider: Abilio Martino :1950 A ge:74 Y S ex:Female Date:09/24/2024 Address:[address] [place] [address], [address] Subjective: * Chief Complaints: * 1 . transfer from [facility]. * Medical History: Objective: * Vitals: Assessment: Plan: * Treatment: * * Electronic signature of Montez Martino , [id number] on 04/11/2025 at 11:46 AM CHARACTER ARTIST Sign off status: Pending * Provider: Abilio Martino Date: 0 09/24/2024 Generated for Maurisio antonio/Emerald/eTransmitting on: 1 06/11/2024 11:46 AM CHARACTER ARTIST
--- OUTSIDE RECORDS SUMMARY | 2025-03-11 07:40 | XMS_ITS ---
Author Organization [facility] Address [address] [place] [address] Care Team Providers Care Wildlife Enforcement Major Name Role Phone Rahlu Martino Primary Care Provider [phone] REASON FOR VISIT LM to r/s; 5 month fu, fu after being released from long term Social History Sex Assigned At : Social History Observation Description Sex Assigned At Female Encounters Encounter Location Date Provider Diagnosis [address] [place] [address] 03/11/2025 Rahul Martino Plan Of Treatment No Information Progress Notes * Kamilah REYES IVDOB:1950 (75 yo F)Acc No.[id number]:03/11/2025 UNLOCKED PROGRESS NOTE Progress Notes Patient: Kamilah IZAGUIRRE IV Provider: Abilio Martino :1950 A ge:75 Y S ex:Female Date:03/11/2025 Address:[address] [place] [address], [address] [id number] Subjective: * Chief Complaints: * 1 . LM to r/s; 5 month fu, fu after being released from long term. * Medical History: Objective: * Vitals: Assessment: Plan: * Treatment: * * Electronic signature of Montez Martino , [phone] on 04/11/2025 at 11:47 AM BALLOON TESTER Sign off status: Pending * Provider: Abilio Martino Date: Generated for Maurisio antonio/Emerald/eTransmitting on: 06/11/2024 11:47 AM BALLOON TESTER
--- OUTSIDE RECORDS SUMMARY | 2025-03-25 09:20 | XMS_ITS ---
Author Organization [facility] Address [address] [place] [address] Care Team Providers Care Pediatrician Managing Partner Name Role Phone Rahul Martino Primary Care Provider Marco Barton Unavailable [phone] REASON FOR VISIT transfer from Kaylie Martino; needs 40 min Medications Medication SIG (Take, Route, Frequency, Duration) Notes Start Date End Date Status Ipratropium Timbo 0.02 % 2.5 mL as needed Inhalation every 6 hours; Duration: 14 days As needed shortness of breath Active Clopidogrel Bisulfate 75 MG 1 tablet Ora lly Once a day Active Potassium Chloride Ariane ER 20 MEQ 2 tablets Orally Once a day Active HYDROcodone-Acetaminophen 10-325 MG 1 tablet as needed Orally up to two times daily 07/25/2024 Active Diphenoxylate-Atropine 2.5-0.025 MG 1 tablet as needed three times a day; Duration: 30 days 07/27/2024 Active Hospital Bed 07/10/2024 Active Misc. Devices - Hospital bed; Durati on: 999 days 07/10/2024 Active Misc. Devices - Shower bench-wide; Duration: 999 days 07/13/2024 Active Misc. Devices - Safety bathroom grab bars; Duration: 999 days 07/13/2024 Active Wheelchair - Wide standard manual wheelchair with foot rests and seat cushion; Duration: 999 days 07/12/2024 Active Ferrous Sulfate 325 (65 Fe) MG 1 tablet Orally daily; Duration: 30 days 05/08/2024 Active Gabapentin 600 MG TAKE 1 TABLET BY [facility] THREE TIMES DAILY; Duration: 30 Active Sertraline HCl 100 MG TAKE 1 TABLET BY M OUTH DAILY; Duration: 90 Active Commode Bedside - Wide; Duration: 999 days 025 Active Dulera 200-5 MCG/ACT INHALE TWO PUFFS BY MOUTH TWICE DAILY; Duration: 30 Active Fluconazole 200 MG 1 tablet Orally once , may repeat in 3 days if needed 11/24/2023 Active Montelukast Sodium 10 MG TAKE 1 TABLET B Y MOUTH EVERY EVENING; Duration: 90 days Active Baclofen 10 MG TAKE 1 TABLET BY DEVEN TH THREE TIMES DAILY as NEEDED FOR MUSCLE PAIN; Duration: 30 days Active busPIRone HCl 15 MG TAKE 1 TABLET BY DEVEN TH FOUR TIMES DAILY; Duration: 30 days Active Ventolin HFA 108 (90 Base) MCG/ACT 2 puffs as needed Inhalation every 6 hrs; Duration: 30 days Active Furosemide 40 MG TAKE 1.5 TABLET BY M OUTH TWICE DAILY; Duration: 30 days Active Lisinopril 10 MG 1 tablet Orally Once a day; Duration: 30 days Active Carvedilol 6.25 MG 1 tablet Orally twic e a day; Duration: 30 days Active Albuterol Sulfate HFA 108 (90 Base) MCG/ACT INHALE 2 PUFFS BY MOUTH BY MOUTH EVERY SIX HOURS NEEDED; Duration: 25 Active [facility] - Hospital Style Bed; Duration: 999 days 10/12/2022 Active Nitroglycerin 0.4 MG 1 TABLET EVERY 5MIN S , MAXIMUM 3 DOSES WITH IN 15 MINS Sublingual DIRECTED; Duration: 30 days Active Social History Sex Assigned At : Social History Observation Description Sex Assigned At Female Encounters Encounter Location Date Provider Diagnosis [address] [place] [address] 03/25/2025 Marco Barton Plan Of Treatment No Information Progress Notes * Kamilah HALE IVDOB:1950 (75 yo F)Acc No.[id number]:03/25/2025 UNLOCKED PROGRESS NOTE Progress Notes Patient: Kamilah IZAGUIRRE IV Provider: Rene Barton APN :1950 A ge:75 Y S ex:Female Date:03/25/2025 Address:[address] [place], [place] [id number] Pcp:Rahul Martino Subjective: * Chief Complaints: * 1 . transfer from Kaylie Martino; needs 40 min. * Medical History: * Medications: T aking Clopidogrel Bisulfate 75 MG Tablet 1 tablet Orally Once a day , Taking Potassium Chloride Ariane ER 20 MEQ Tablet Extended Release 2 tablets Orally Once a day , Taking Nitroglycerin 0.4 MG Tablet Sublingual 1 TABLET EVERY 5MINS , MAXIMUM 3 DOSES WITH IN 15 MINS Sublingual DIRECTED , Taking Lisinopril 10 MG Tablet 1 tablet Orally Once a day , Taking Carvedilol 6.25 MG Tablet 1 tablet Orally twice a day , Taking Albuterol Sulfate HFA 108 (90 Base) MCG/ACT Aerosol Solution INHALE 2 PUFFS BY MOUTH BY MOUTH EVERY SIX HOURS NEEDED , Taking Misc. Devices - Miscellaneous Hospital Style Bed , Taking Furosemide 40 MG Tablet TAKE 1.5 TABLET BY MOUTH TWICE DAILY , Taking Fluconazole 200 MG Tablet 1 tablet Orally once, may repeat in 3 days if needed , Taking Montelukast Sodium 10 MG Tablet TAKE 1 TABLET BY MOUTH EVERY EVENING , Taking Baclofen 10 MG Tablet TAKE 1 TABLET BY MOUTH THREE TIMES DAILY as NEEDED FOR MUSCLE PAIN , Taking busPIRone HCl 15 MG Tablet TAKE 1 TABLET BY MOUTH FOUR TIMES DAILY , Taking Ventolin HFA 108 (90 Base) MCG/ACT Aerosol Solution 2 puffs as needed Inhalation every 6 hrs , Taking Dulera 200-5 MCG/ACT Aerosol INHALE TWO PUFFS BY MOUTH TWICE DAILY , Taking Ferrous Sulfate 325 (65 Fe) MG Tablet 1 tablet Orally daily , Taking Gabapentin 600 MG Tablet TAKE 1 TABLET BY MOUTH THREE TIMES DAILY , Taking Sertraline HCl 100 MG Tablet TAKE 1 TABLET BY MOUTH DAILY , Taking Commode Bedside - Miscellaneous Wide , Taking Hospital Bed , Taking Misc. Devices - [facility] , Taking Wheelchair - Miscellaneous Wide standard manual wheelchair with foot rests and seat cushion , Taking Misc. Devices - Miscellaneous Shower bench-wide , Taking Misc. Devices - Miscellaneous Safety bathroom grab bars , Taking HYDROcodone-Acetaminophen 10-325 MG Tablet 1 tablet as needed Orally up to two times daily , Taking Diphenoxylate-Atropine 2.5-0.025 MG Tablet 1 tablet as needed three times a day , Taking Ipratropium Timbo 0.02 % Solution 2.5 mL as needed Inhalation every 6 hours As needed shortness of breath Objective: * Vitals: Assessment: Plan: * Treatment: * * Electronic signature of Ariel Barton on 04/11/2025 at 11:46 AM THERAPY TECHNICIAN Sign off status: Pending * Provider: Rene Barton APN Date: Generated for Maurisio antonio/Emerald/Rosita on: 06/11/2024 11:46 AM THERAPY TECHNICIAN
--- OUTSIDE RECORDS SUMMARY | 2025-03-29 08:00 | XMS_ITS ---
Author Organization [facility] Address [address] [place] [address] Care Team Providers Care Dimension Quarry Supervisor Name Role Phone Rahul Martino Primary Care Provider [phone] Marco Barton [phone] REASON FOR VISIT JUST OUT OF CORRESPONDENCE REVIEW CLERK CARE, [facility] requesting orders need 1 hour for appointment per Pedrito Social History Sex Assigned At : Social History Observation Description Sex Assigned At Female Encounters Encounter Location Date Provider Diagnosis [place] [address] [facility] [place] [address] 03/29/2025 Marco Barton Plan Of Treatment No Information Progress Notes * Kamilah HALE IVDOB:1950 (75 yo F)Acc No.[id number]:03/29/2025 UNLOCKED PROGRESS NOTE Progress Note Patient: Kamilah IZAGUIRRE IV Provider: Rene Barton APN :1950 A ge:75 Y S ex:Female Date:03/29/2025 Address:[address] [place] [address], [address] [facility] Pcp:Rahul Martino Subjective: * Chief Complaints: * 1 . JUST OUT OF [facility] CARE, [facility] requesting orders need 1 hour for appointment per Pedrito. * Medical History: Objective: * Vitals: Assessment: Plan: * Treatment: * * Electronic signature of Ariel Barton on 04/11/2025 at 11:46 AM ASSOCIATE MANAGER AFFILIATE MARKETING Sign off status: Pending * Provider: Rene Barton APN Date: 1 Generated for Maurisio antonio/Emerald/Rosita on: 06/11/2024 11:46 AM ASSOCIATE MANAGER AFFILIATE MARKETING
--- OUTSIDE RECORDS SUMMARY | 2025-04-04 08:40 | XMS_ITS ---
Author Organization [facility] Address [address] [place] [address] Care Team Providers Care Director Emergency Name Role Phone Rahul Martino Primary Care Provider Marco Barton [phone] REASON FOR VISIT r/s due to transportation issue JUST OUT OF IT SALES EXECUTIVE CARE, [facility] requesting orders need 1 hour for appointment per Pedrito Social History Sex Assigned At : Social History Observation Description Sex Assigned At Female Encounters Encounter Location Date Provider Diagnosis [address] [place] [address] 04/04/2025 Marco Barton Plan Of Treatment No Information Progress Notes * GEOFFREYMichelley IVDOB:1950 (75 yo F)Acc No.[id number]:04/04/2025 UNLOCKED PROGRESS NOTE Progress Note Patient: Kamilah IZAGUIRRE IV Provider: Rene Barton APN :1950 A ge:75 Y S ex:Female Date:04/04/2025 Address:[address] [place] [address], [address] [facility] Pcp:Rahul Martino Subjective: * Chief Complaints: * 1 . r/s due to transportation issue JUST OUT OF LONG-TERM CARE, [facility] requesting orders need 1 hour for appointment per Pedrito. * Medical History: Objective: * Vitals: Assessment: Plan: * Treatment: * * Electronic signature of Ariel Barton on 04/11/2025 at 11:47 AM TACK PULLER Sign off status: Pending * Provider: Rene Barton APN Date: 06/04/2024 Generated for Maurisio antonio/Emerald/Rosita on: 06/11/2024 11:47 AM TACK PULLER
--- OUTSIDE RECORDS SUMMARY | 2025-04-11 11:46 | XMS_ITS | Clinical Summary ---
Author Organization [facility] Address [address] [place], [place] [id number] Care Team Providers Care Equity Holder Name Role Phone Unavailable Primary Care Provider Unavailabl e Social History Tobacco Use Types Packs/Day Years Used Date Smoking Tobacco: Never Assessed Comments Unknown Sex and Gender Information Value Date Recorded Sex Assigned at Not on file Legal Sex Female 5:29 PM CDT Gender Identity Not on file Sexual Orientation Not on file Plan of Treatment Health Maintenance Due Date Last Done Comments Hepatitis C 02/09/1966 DTaP, Tdap and Td Vaccines ( 1 - Tdap) 02/09/1967 Pneumococcal Vaccine: 50+ Ye ars (1 of 1 - PCV) 02/09/1998 Zoster Vaccines (1 of 2) 02/09/1998 Dexa Scan (General) 02/09/2013 RSV Immunization or 60+ Years (1 - 1-dose 75+ series) 02/09/2023 COVID-19 Vaccine ( - 2024-2 6 season) 2025 Influenza Adult (#1) 2025 Hepatitis A Vaccines Aged Out No long er eligible based on patient's age to complete this topic Meningococcal B Vaccine Aged Out No l onger eligible based on patient's age to complete this topic Meningococcal Vaccine Aged Out No edwina kirill eligible based on patient's age to complete this topic RSV Immunizations Under 20 Months Aged Out No longer eligible based on patient's age to complete this topic
--- OUTSIDE RECORDS SUMMARY | 2025-04-11 11:47 | XMS_ITS | Clinical Summary ---
Author Organization [facility] Address [address] [place] [address] Care Team Providers Care Lamp Wirer Name Role Phone Amarjit Zuniga MD Primary Care Provider [phone] Source Comments [facility],non-owned Affiliates and Associated Physician Practices is amultiple site organization consisting of ambulatory clinics and hospital sitesin [place], [place], [place] and [place]. This disclosure is being madepursuant to the Care Everywhere program and may not contain all information available regarding this patient. Last updated 18.[facility] Medications * Be aware that medications may not be up to date on this document. Alwaysverify current medications with the patient. methocarbamol (Robaxin) 500 MG tablet 1 (one) tablet 12/20/2024 Active busPIRone (Buspar) 15 MG tablet TAKE 1 TABLET BY MOUTH FOUR TIMES DAILY; Duration: 30 days Active spironolactone (Aldactone) 25 MG tablet Take 1 (one) tablet by mouth once daily 12/20/2024 Active sertraline (Zoloft) 50 MG tablet Take 2 (two) tablets by mouth once daily 12/20/2024 Active pantoprazole EC (Protonix) 40 MG tablet Take 1 (one) tablet by mouth once daily 06/26/2024 Active gabapentin (Neurontin) 300 MG capsule Take 1 (one) capsule by mouth at bedtime 12/20/2024 Active furosemide (Lasix) 40 MG tablet Take 1 (one) tablet by mouth once daily 12/20/2024 Active doxycycline hyclate 100 MG tablet Take 1 (one) tablet by mouth 2 times daily 01/21/2025 Active Cholecalciferol (Vitamin D3) 25 MCG (1000 UT) Take 1 (one) capsule by mouth once daily 12/08/2024 12/09/19 26 Active clopidogrel (plaVIX) 75 MG tablet Take 1 (one) tablet by mouth once daily 12/08/2024 Active Lidoderm 5 % patch Apply 1 (one) patch to skin once daily 12/20/2024 Active atorvastatin (Lipitor) 40 MG tablet Take 1 (one) tablet by mouth once daily 12/20/2024 Active montelukast (Singulair) 10 MG tablet Take 1 (one) tablet by mouth once daily 12/20/2024 Active oxyCODONE, immediate release, (Roxicodone) 5 MG tablet Take 1 (one) tablet by mouth every 8 hours as needed 12/07/2024 Active acetaminophen (Tylenol) 500 MG capsule Take 2 (two) capsules by mouth 4 times daily 12/07/2024 Active aspirin EC (Ecotrin) 81 MG tablet 1 (one) tablet 07/09/2024 Active ascorbic acid (Vitamin C) 500 MG tablet Take 1 (one) tablet by mouth 2 times daily Active fluticasone-quirino anterol (Breo Ellipta) 200-25 MCG/ACT inhaler Inhale 1 (one) puff by mouth once daily Active Active Problems Problem Noted Date Diagnosed Date jail current use of anticoagulant therapy 0 01/23/2025 History of DVT (deep vein thrombosis) 01/23/2025 Chronic hypoxic respiratory failure 07/24/2024 Chronic obstructive pulmonary disease 11/20/2020 Essential hypertension 10/06/2017 CHF (congestive heart failure) 04/19/2017 Encounters Date Type Department Care Team Description 04/11/2025 Telephone [facility] - Centralized Scheduling [place] [phone] Fabiana Ragland DO Reschedule Appointment 04/10/2025 Telephone [facility] - Centralized Scheduling [address] [place] [phone] Fabiana Ragland DO Reschedule Appointment 04/09/2025 Telephone [facility] - Centralized Scheduling [address] [place] [phone] Fabiana Ragland DO Reschedule Appointment 01/23/2025 10:00 AM CDT Office Visit [facility] - Cardiology [address] [facility] [address] [place] [address] Fabiana Ragland DO Chronic congestive heart failure, unspecified heart failure type (HCC) (Primary Dx); Essential hypertension; Coronary artery disease involving [place] coronary artery of [place] heart with angina pectoris; Mixed hyperlipidemia; History of DVT (deep vein thrombosis); Left hip fracture s/p ORIF 11/202401/23/2025 Travel from Last 3 Months Social History Tobacco Use Types Packs/Day Years Used Date Smoking Tobacco: Never Assessed Comments Unknown Sex and Gender Information Value Date Recorded Sex Assigned at Not on file 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 Gender Identity Not on file Sexual Orientation Not on file Last Filed Vital Signs Vital Sign Reading Time Taken Comments Blood Pressure 118/62 01/23/2025 10:43 AM CDT Pulse 70 01/23/2025 10:43 AM CDT Temperature - - Respiratory Rate - - Oxygen Saturation 97% 01/23/2025 10:43 AM CDT Inhaled Oxygen Concentration - - Weight - - Height - - Body Mass Index - - Plan of Treatment Health Maintenance Due Date Last Done Comments BONE DENSITY TESTING 1950 HEPATITIS C SCREENING 02/05/1966 DTAP/TDAP/TD VACCINES (1 - Tdap) 02/09/1967 PNEUMOCOCCAL VACCINE 50+ (1 of 2 - PCV) 02/09/1967 ZOSTER VACCINE (1 of 2) 02/09/1998 Respiratory Syncytial Virus (RSV) Vaccine Pt: or over 60 yrs (1 - 1-dose 75+ series) 02/09/2023 DEPRESSION SCREENING 05/30/2024 COVID-19 VACCINE (3 - 2024- season) 2025 12/25/2020, 11/27/2020 INFLUENZA VACCINE (#1) 2025 2, 02/12/2020, 03/21/2019, Additional history exists HEPATITIS B VACCINE Aged Out No longe r eligible based on patient's age to complete this topic HIB VACCINE Aged Out No longer eligi ble based on patient's age to complete this topic HPV VACCINE Aged Out No longer eligi ble based on patient's age to complete this topic MENINGOCOCCAL (Group B) VACCINE SHARED DECISION-MAKING Aged Out No longer eligible based on patient's age to complete this topic MENINGOCOCCAL GROUPS A/C/Y/W VACCINE Aged Out No longer eligible based on patient's age to complete this topic Procedures Procedure Name Priority Date/Time Associated Diagnosis Comments EKG 12-LEAD Routine 01/23/2025 10:45 AM CDT Chronic congestive heart failure, unspecified heart failure type (HCC) Essential hypertension Coronary artery disease involving [place] coronary artery of [place] heart with angina pectoris Mixed hyperlipidemia History of DVT (deep vein thrombosis) Left hip fracture s/p ORIF 11/2024 from Last 3 Months Results * EKG 12-Lead (01/23/2025 10:45 AM CDT) Ventricular Rate 70 BPM [facility] Atrial Rate 70 BPM [facility] P-R Interval 178 ms [facility] QRS Duration ms 104 ms [facility] Q-T Interval ms 408 ms [facility] QTC Calculation (Bezet) 440 ms [facility] Calculated P [place] 68 degrees [facility] Calculated R [place] -28 degrees [facility] Calculated T [place] 78 degrees [facility] Interpretation EKG NORMAL SINUS RHYTHM SEPTAL INFARCT , AGE UNDETERMINED ABNORMAL ECG NO PREVIOUS ECGS AVAILABLE Confirmed by FABIANA RAGLAND DO ([id number]) on 01/23/2025 2:49:28 PM [facility] 01/23/2025 10:4 5 AM CDT 01/23/2025 2:49 PM CDT us Fabiana Ragland DO ECG ORDERABLES Edited Result - Final DELMIS CARDOZA from Last 3 Months Insurance [facility] Care Teams Lamp Wirer Relationship Specialty Start Date End Date Amarjit Zuniga MD [address] [place] [address] [address] [place] [address] PCP - General Family Medicine 03/04/16
--- OUTSIDE RECORDS SUMMARY | 2025-04-11 11:47 | XMS_ITS | Patient Health Record ---
Author Organization [facility] Address [address] [place] [address] Care Team Providers Care Livestock Buyer Name Role Phone Rahul Martino Primary Care Provider [phone] Marco Miguel Unavailable [phone] Marco Barton Unavailable [phone] Allergies Allergen (clinical drug ingredient) Drug/Non Drug Allergy documented on EMR Reaction Allergy Type Onset Date Status Chocolate Flavor Unknown Drug Allergy Active Penicillin Unknown Drug Allergy Active Reason For Referral Reason COPD, started on oxy gen in hospital after recent pneumonia. Diagnosis 1 Chronic obstructive pulmonary disease, unspecified COPD type (J44.9) Referral Organization [facility] Referring Provider First Name Marco Referring Provider Last Name Lamont Referring Provider Speciality [facility] cheri Referred Provider [facility] [place] Referred Provider Specialty Pulmonology General Notes Ashley Foster RN 06/07/2024 03:38:53 PM >[facility]'s website indicates that JUAN Olivas with [facility] [place] accepts [place]. Will fax referral when notes are available from visit.Kristin RN, Stephanie N 06/08/2024 09:47:40 AM >referral faxed.Kristin RN, Stephanie N 06/08/2024 09:49:06 AM >letter mailed with referral details. Clinical Notes [facility] [place] , [address] [place] [address] Wolfgang Knapp, [place] [address], , Referral Priority Routine Medications Medication SIG (Take, Route, Frequency, Duration) Notes Start Date End Date Status [facility]. Devices - Shower bench-wide; Duration: 999 days 07/13/2024 Active Clopidogrel Bisulfate 75 MG 1 tablet Ora lly Once a day Active Misc. Devices - Safety bathroom grab bars; Duration: 999 days 07/13/2024 Active Potassium Chloride [facility] 20 MEQ 2 tablets Orally Once a day Active HYDROcodone-Acetaminophen 10-325 MG 1 tablet as needed Orally up to two times daily 07/25/2024 Active Nitroglycerin 0.4 MG 1 TABLET EVERY 5MIN S , MAXIMUM 3 DOSES WITH IN 15 MINS Sublingual DIRECTED; Duration: 30 days Active Diphenoxylate-Atropine 2.5-0.025 MG 1 tablet as needed three times a day; Duration: 30 days 07/27/2024 Active Wheelchair - Wide standard manual wheelchair with foot rests and seat cushion; Duration: 999 days 07/12/2024 Active Hospital Bed 07/10/2024 Active [facility]. Devices - Hospital bed; Durati on: 999 days 07/10/2024 Active Ferrous Sulfate 325 (65 Fe) MG 1 tablet Orally daily; Duration: 30 days 05/08/2024 Active Gabapentin 600 MG TAKE 1 TABLET BY DEVEN TH THREE TIMES DAILY; Duration: 30 Active Sertraline HCl 100 MG TAKE 1 TABLET BY M OUTH DAILY; Duration: 90 Active Commode Bedside - Wide; Duration: 999 days 025 Active Baclofen 10 MG TAKE 1 TABLET BY DEVEN TH THREE TIMES DAILY as NEEDED FOR MUSCLE PAIN; Duration: 30 days Active busPIRone HCl 15 MG TAKE 1 TABLET BY DEVEN TH FOUR TIMES DAILY; Duration: 30 days Active Ventolin HFA 108 (90 Base) MCG/ACT 2 puffs as needed Inhalation every 6 hrs; Duration: 30 days Active Dulera 200-5 MCG/ACT INHALE TWO PUFFS BY MOUTH TWICE DAILY; Duration: 30 Active Furosemide 40 MG TAKE 1.5 TABLET BY M OUTH TWICE DAILY; Duration: 30 days Active Fluconazole 200 MG 1 tablet Orally once , may repeat in 3 days if needed 11/24/2023 Active Montelukast Sodium 10 MG TAKE 1 TABLET B Y MOUTH EVERY EVENING; Duration: 90 days Active Lisinopril 10 MG 1 tablet Orally Once a day; Duration: 30 days Active Ipratropium Topmost 0.02 % 2.5 mL as needed Inhalation every 6 hours; Duration: 14 days As needed shortness of breath Active Carvedilol 6.25 MG 1 tablet Orally twic e a day; Duration: 30 days Active Albuterol Sulfate HFA 108 (90 Base) MCG/ACT INHALE 2 PUFFS BY MOUTH BY MOUTH EVERY SIX HOURS NEEDED; Duration: 25 Active Misc. Devices - Hospital Style Bed; Duration: 999 days 10/12/2022 Active Immunizations Vaccine Route Administration Date Status Comme nts Influenza, injectable, quadrivalent, preservative free IM Intramuscular 03/21/2018 Administered Pt tolerated injection well. Questions and concerns denied. FLU VAC NO PRSV 4VAL 6 mo+ IM Intramuscular 03/21/2019 Administered Pt tolerated injection well. No questions or concerns voiced. 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[employer] FLU VAC NO PRSV 4VAL 6 mo+ [...] Status Risk Notes Problem Morbid obesity (disorder) (959843237) Morbid (severe) obesity due to excess calories (E66.01) Active confirmed Problem Chronic pain syndrome (781527576) Chronic pain syndrome (G89.4) Active confirmed Problem Vaccination given (629118394) Encounter for immunization (Z23) Active confirmed Problem Anxiety (76600983) Anxiety (F41.9) Active confi rmed Problem Long-term current use of anticoagulant (114714446) correction current use of anticoagulant (Z79.01) Active confirmed Problem Mixed incontinence (679687322) Mixed stress and urge urinary incontinence (N39.46) Active confirmed Problem Obesity (161301799) Obesity (BMI 30-39.9) (E66.9) Active confirmed Problem Chronic migraine (410992773) Chronic migraine (G43.709) Active confirmed Problem Essential hypertension (21426886) Essential hypertension (I10) 018 Active confirmed Problem Gastroesophageal reflux disease (863564843) Gastroesophageal reflux disease, esophagitis presence not specified (K21.9) Active confirmed Problem COPD - Chronic obstructive pulmonary disease (95918084) Chronic obstructive pulmonary disease, unspecified COPD type (J44.9) Active confirmed Problem Heart failure (87431060) Congestive heart failure, unspecified congestive heart failure chronicity, unspecified congestive heart failure type (I50.9) 017 Active confirmed Problem Osteoarthritis of knee (010733225) Primary osteoarthritis of both knees (M17.0) Active confirmed WALKER Problem Gastroesophageal reflux disease without esophagitis (491244124) Gastroesophageal reflux disease without esophagitis (K21.9) Active confirmed Problem Hemoglobin low (509383250) Low hemoglobin (D64.9) Active confirmed Problem Polyneuropathy (76631308) Polyneuropathy (G62.9) Active confirmed Problem Asthma without status asthmaticus (48155083) Asthma, unspecified asthma severity, unspecified whether complicated, unspecified whether persistent (J45.909) Active confirmed Problem Severe major depression, single episode, without psychotic features (42079132) Current severe episode of major depressive disorder without psychotic features without prior episode (F32.2) 020 Active confirmed Problem Morbid obesity (465768466) Severe obesity (BMI >= 40) (E66.01) Active confirmed Vital Signs [...] 05/31/2024 Encounters Encounter Location Date Provider Diagnosis [address] [place] [address] 05/08/2024 Marco Miguel Low hemoglobin D64.9 ; Obesity (BMI 30-39.9) E66.9 and Nutritional counseling Z71.[address] [place] [address] 05/31/2024 Marco Miguel Gastroesophageal ref lux disease without esophagitis K21.9 ; Hospital discharge follow-up Z09 ; Chronic migraine G43.709 ; Chronic diarrhea K52.9 ; Chronic obstructive pulmonary disease, unspecified COPD type J44.9 ; Obesity (BMI 30-39.9) E66.9 and Nutritional counseling Z71.[address] [place] [address] 07/12/2024 Marco Miguel Closed fracture of l eft hip, initial encounter S72.002A and Impaired mobility Z74.[address] [place] [address] 08/02/2024 Marco Miguel Closed fracture of l eft hip, initial encounter S72.002A [address] [place] [address] 09/17/2024 Rahul Martino Dysuria R30.0 ; Congestive [...] ; Opioid use F11.90 and Polypharmacy Z79.[address] [place] [address] 04/25/2024 aMrco Miguel [address] [address] 07/03/2024 Marco Miguel [address] [place] [address] 07/10/2024 Marco Miguel [address] [place] [address] 07/13/2024 Marco Miguel Impaired mobility Z74.09 and Closed fracture of left hip, initial encounter S72.002A [address] [address] 07/24/2024 Marco Miguel Closed fracture of l eft hip, initial encounter S72.002A [address] [address] 07/27/2024 Rahul Martino Chronic diarrhea K52 .[address] [address] 10/29/2024 Rahul Martino [facility] [address] [place] [address] 03/25/2025 Marco Barton [facility] [address] [place] [address] 03/25/2025 Marco Barton [address] [address] 04/10/2025 Marco Barton Assessments Encounter Date Diagnosis (ICD Code) Assessment Notes Treatment Notes Treatment Clinical Notes Section Notes 09/17/2024 Dysuria (ICD-10 - R30.0) UNABLE TO GIVE SPECIMEN IN OFFICE. CAREGIVER WILL TAKE HAT AND CUP HOME AND BRING SPECIMEN BACK TOMORROW. 09/17/2024 Congestive heart failure, unspecified congestive heart failure chronicity, unspecified congestive heart failure type (ICD-10 - I50.9) CLINICALLY STABLE 07/12/2024 Impaired mobility (ICD-10 - Z74.09) 07/12/2024 Closed fracture of left hip, initial encounter (ICD-10 - S72.002A) 07/13/2024 Impaired mobility (ICD-10 - Z74.09) 07/13/2024 Closed fracture of left hip, initial encounter (ICD-10 - S72.002A) 07/24/2024 Closed fracture of left hip, initial encounter (ICD-10 - S72.002A) 07/27/2024 Chronic diarrhea (ICD-10 - K52.9) 08/02/2024 Closed fracture of left hip, initial encounter (ICD-10 - S72.002A) 05/08/2024 Obesity (BMI 30-39.9) (ICD-10 - E66.9) 05/08/2024 Low hemoglobin (ICD-10 - D64.9) 05/31/2024 Gastroesophageal reflux disease without esophagitis (ICD-10 - K21.9) 05/31/2024 Hospital discharge follow-up (ICD-10 - Z09) 05/08/2024 Nutritional counseling (ICD-10 - Z71.3) 09/17/2024 Primary osteoarthritis of both knees (ICD-10 - M17.0) USES HYDROCODONE INTERMITTENTLY 05/31/2024 Chronic migraine (ICD-10 - G43.709) 09/17/2024 Essential hypertension (ICD-10 - I10) 05/31/2024 Chronic diarrhea (ICD-10 - K52.9) 05/31/2024 Chronic obstructive pulmonary disease, unspecified COPD type (ICD-10 - J44.9) 09/17/2024 Chronic pain syndrome (ICD-10 - G89.4) 05/31/2024 Obesity (BMI 30-39.9) (ICD-10 - E66.9) 09/17/2024 Chronic obstructive pulmonary disease, unspecified COPD type (ICD-10 - J44.9) 05/31/2024 Nutritional counseling (ICD-10 - Z71.3) 09/17/2024 Mixed stress and urge urinary incontinence (ICD-10 - N39.46) 09/17/2024 History of back surgery (ICD-10 - Z98.890) 09/17/2024 Opioid use (ICD-10 - F11.90) 09/17/2024 [...] Insured Coverage Start Date Coverage End Date [facility] Attn Claims Department [address] [place] [address] [id number] Kamilah Hale Self - patient is the insured 7 5 [facility] [employer] Attn Claims Department [address] [place] [address] [id number] Kamilah Hale Self - patient is the insured 0 5 [facility] Attn Claims Department [address] [place] [address] [id number] Kamilah Hale Self - patient is the insured 1 5 Medical (General) History Medical History History ICD Code CHF osteoarthritis of the knees and shoulder s bilaterally and stage anxiety acid reflux asthma Polyneuropathy Surgical History Surgery Date(Month/Year) left and right knee replace rotary cuff repaired left and right mastoid behind right ear removed back surgery Hospitalization History Reason Date(Month/Year) [facility] 05/[address] [facility]-hypokalemia 10/2022
--- OUTSIDE RECORDS SUMMARY | 2025-04-11 11:48 | XMS_ITS | Encounter Summary ---
Author Organization [facility] Address [address] [facility] [place] [address] Care Team Providers Care Social Security Assessor Name Role Phone Amarjit Zuniga MD Primary Care Provider [phone]- [phone] Reason for Visit * Reason Onset Date Comments Reschedule Appointment 04/11/2025 Encounter Details Date Type Department Care Team (Late st Contact Info) Description 04/11/2025 Telephone [facility] - Centralized Scheduling [address] [place] [address] Fabiana Ragland, DO [address] [facility] [address] [place] [address] Reschedule Appointment Social History Tobacco Use Types Packs/Day Years Used Date Smoking Tobacco: Never Assessed Comments Unknown Sex and Gender Information Value Date Recorded Sex Assigned at Not on file 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 [place] [phone] PCP - General Family Medicine 03/04/16 documented as of this encounter
--- OUTSIDE RECORDS SUMMARY | 2025-04-11 11:48 | XMS_ITS | Encounter Summary ---
Author Organization [facility] Address [address] [facility] [place] [address] Care Team Providers Care Tool Lathe Operator Name Role Phone Amarjit Zuniga MD Primary Care Provider [phone]- [phone] Reason for Visit * Reason Onset Date Comments Reschedule Appointment 04/10/2025 Encounter Details Date Type Department Care Team (Late st Contact Info) Description 04/10/2025 Telephone [facility] - Centralized Scheduling [address] [place] [address] Fabiana Ragland, DO [address] [facility] [address] [place] [address] Reschedule Appointment Social History Tobacco Use Types Packs/Day Years Used Date Smoking Tobacco: Never Assessed Comments Unknown Sex and Gender Information Value Date Recorded Sex Assigned at Not on file 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 Ragland ON SAWYER documented in this encounter Plan of Treatment Not on file documented as of this encounter Visit Diagnoses Not on filedocumented in this encounter Care Teams Tool Lathe Operator Relationship Specialty Start Date End Date Amarjit Zuniga MD [address] [facility] [place] [address] PCP - General Family Medicine 03/04/16 documented as of this encounter
[2025-04-11 11:55] LABS: Add Urine Microscopic? YES; Appearance Urine Clear (Clear); Glucose Urine UA Negative (Negative); Leukocyte Esterase Ur 1+ LEU/UL (Negative); Need Manual Microscopic Reviewed; Nitrate Urine Negative (Negative); Specific Grav Ur 1.021 (1.001-1.035)
== END 2025-04-11 10:47 | disposition home or self-care (01) ==
LOC: HOME HLTH 10:47
PROVIDERS: PCP Family Medicine; Visit Provider Registered Nurse
DX: N39.0 Urinary tract infection, site not specified (principal); R30.0 Dysuria
CPT/HCPCS: 81001; 87086; 87186

== ENCOUNTER 2025-04-15 18:04 | Inpatient (IN) | payer OTHER, SELFPAY ==
[2025-04-15] VITALS (7 sets, daily range): BP systolic 112–124; BP diastolic 61–78; PULSE 66–73; RESP 16–20; TEMP 36.7; O2SAT 97–98
--- NOTE | ~2025-04-15 | XR_ITS ---
Examination: XR chest 1V portable Clinical History: cough Comparison: 11/14/2024 Technique: Portable AP Findings: Heart size upper limit of normal. Lungs clear. Prominent right main pulmonary artery. Attention on future films. No acute bony abnormality. IMPRESSION: 1. No acute cardiopulmonary findings given portable technique. Reviewed, dictated and finalized at location R. [facility]
[2025-04-15 22:48] LABS: Add Urine Microscopic? YES; Appearance Urine Clear (Clear); Glucose Urine UA Negative (Negative); Leukocyte Esterase Ur 1+ LEU/UL (Negative); Nitrate Urine Positive (Negative); Specific Grav Ur 1.018 (1.001-1.035)
[2025-04-15 22:49] LABS: Need Manual Microscopic Reviewed
[2025-04-15 22:53] LABS: Hematocrit 34.7 % (37.0-47.0); Hemoglobin 11.0 g/dL (12.0-15.0); Immature Granulocyte Percent A 0.2 % (0-0.5); Lymphocytes Absolute Auto 1.28 K/mm3 (0.9-3.2); Mean Corpuscular HGB Conc 31.7 g/dl (32-36); Mean Corpuscular Hemoglobin 29.9 pg (26-34); Mean Corpuscular Volume 94.3 fl (80-100); Nucleated Red Blood Cells Absolute Auto 0.000 K/mm3 (0.0-0.012); Nucleated Red Blood Cells Perc 0.0 % (0.0-0.2); Platelet Count Result 250 k/mm3 (150-375); Red Blood Count 3.68 M/mm3 (4.2-5.4); White Blood Count 4.3 K/mm3 (4.5-10.0)
[2025-04-15 23:08] LABS: Alanine Aminotransferase 16 U/L (6-35); Albumin Level 4.4 g/dL (3.5-5.1); Alkaline Phosphatase 133 U/L (38-126); Anion Gap 9 mmol/L (4-12); Aspartate Amino Transferase 26 U/L (14-36); Bilirubin,Total 0.6 mg/dL (0.2-1.3); Blood Urea Nitrogen 15 mg/dL (7-17); Calcium 9.6 mg/dL (8.4-10.2); Carbon Dioxide 24 mmol/L (22-30); Chloride 103 mmol/L (98-107); Estimated Glomerular Filt Rate > 60; Glucose 104 mg/dL (65-110); Potassium 3.9 mmol/L (3.4-5.0); Sodium 136 mmol/L (137-145); Total Protein 7.8 g/dL (6.3-8.2)
--- NOTE | 2025-04-15 23:54 | ED.GENADULT ---
HPI - General Adult General Chief complaint: Urogenital-Female Stated complaint: uti Time Seen by Provider: 04/15/25 22:26 History of Present Illness HPI narrative: patient 75-year-old female who presents emergency department with chief complaint of burning with urination for the last 3 weeks the patient had an outpatient urinalysis done that came back with a multi-drug resistant infection of E coli the patient reports he has continued to have burning with urination Related Data Home Medications ?Medication ?Instructions ?Recorded ?Confirmed ?Last Taken ?Type albuterol sulfate 90 mcg/actuation 1 inhalation inhalation Q4H 06/11/19 11/15/24 Unknown History aerosol inhaler (Ventolin HFA) furosemide 40 mg tablet 40 mg PO QAM 06/11/19 11/15/24 Unknown History montelukast 10 mg tablet 10 mg PO DAILY 06/11/19 11/15/24 Unknown History (Singulair) nitroglycerin 0.4 mg sublingual 0.4 mg sublingual Q5M PRN chest 06/11/19 11/15/24 Unknown History tablet pain buspirone 15 mg tablet 15 mg PO QID 06/13/19 11/16/24 Unknown History ondansetron HCl 4 mg tablet 4 mg PO Q8H 06/13/19 11/15/24 Unknown History aspirin 81 mg tablet,delayed 81 mg PO DAILY 11/15/24 11/15/24 Unknown History release atorvastatin 40 mg tablet 40 mg PO DAILY 11/15/24 11/15/24 Unknown History baclofen 10 mg tablet 10 mg PO Q8H PRN muscle spasm 11/15/24 11/15/24 Unknown History akoqcepjgj-kcxrfnaodjbsc-efwbklyk 1 tablet PO Q6H PRN pain 11/15/24 11/15/24 Unknown History 50 mg-325 mg-40 mg tablet clopidogrel 75 mg tablet 75 mg PO DAILY 11/15/24 11/15/24 Unknown History cyclobenzaprine 10 mg tablet 10 mg PO DAILY 11/15/24 11/15/24 Unknown History ferrous sulfate 325 mg (65 mg 325 mg PO DAILY 11/15/24 11/15/24 Unknown History iron) tablet (FeroSul) gabapentin 600 mg tablet 300 mg PO Q12H 11/15/24 11/16/24 Unknown History loperamide 2 mg capsule 2 mg PO DAILY 11/15/24 11/15/24 Unknown History mometasone-formoterol HFA 200 2 inh inhalation Q12H 11/15/24 11/15/24 Unknown History mcg-5 mcg/actuation aerosol inhaler (Dulera) pantoprazole 40 mg tablet,delayed 40 mg PO DAILY 11/15/24 11/15/24 Unknown History release potassium chloride 20 mEq 20 meq PO DAILY 11/15/24 11/15/24 Unknown History tablet,extended release(part/cryst) sertraline 100 mg tablet 100 mg PO DAILY 11/15/24 11/15/24 Unknown History spironolactone 25 mg tablet 25 mg PO DAILY 11/16/24 11/16/24 Unknown History Allergies Allergy/AdvReac Type Severity Reaction Status Date / Time Penicillins Allergy Mild Rash Verified 06/13/19 14:34 Review of Systems Review of Systems: A 10 system review of systems was completed on the patient and is negative except for what is stated in the HPI. Nursing and ancillary documentation was reviewed. [facility] Past Medical History Medical History DVT (deep venous thrombosis) Asthma Social History Social History Smoking status: Never smoker Alcohol intake: never Substance use: never Do You Feel Safe in your Home?: Yes Lack of Transportation: No Lack of Food: Never True Current Housing: I Have Housing Concerned About Future Housing: No Difficulty Paying Gas/Electric Bills: No Difficulty Paying for Meds: No Currently Unemployed: No Education: Grade School Difficulty w/ Childcare or Family Care: No Spiritual care concerns: No Exam Narrative: GENERAL: Well-appearing, well-nourished, and in no acute distress. extremely hard of hearing HEAD: Normocephalic, atraumatic. EYES: PERRLA and EOMI. ENT: Nares clear, no rhinorrhea or epistaxis. Mucous membranes moist. NECK: Supple. CHEST: Clear to auscultation. No respiratory distress. HEART: Regular rate and rhythm. No murmur heard. Normal peripheral pulses. ABDOMEN: Soft, nontender, nondistended, normal active bowel sounds. EXTREMITIES: Normal range of motion. No edema. SKIN: Warm, dry, no rash. NEURO: No focal deficits. Alert and oriented x3. PSYCH: Normal mood and affect. Course Vital Signs Vital signs: Vital Signs Temperature 36.7 C 04/15/25 18:10 Pulse Rate 66 04/15/25 18:10 Respiratory Rate 20 04/15/25 18:10 Blood Pressure 124/61 04/15/25 18:10 Pulse Oximetry 97 04/15/25 18:10 Temperature 36.7 C 04/15/25 18:10 Pulse Rate 66 04/15/25 18:10 Respiratory Rate 20 04/15/25 18:10 Blood Pressure 112/61 04/15/25 22:01 Pulse Oximetry 97 04/15/25 22:00 Medical Decision Making MDM Narrative Medical decision making narrative: differential diagnosis includes UTI, sepsis, laboratory studies were obtained showed white count of 4.3 urinalysis showed positive nitrate positive leukocyte esterase 4+ bacteria urine culture showed 1. Escherichia coli M.I.C. RX --------- --- * Amoxicillin/Clavulanic Acid =16 I * Ampicillin >=32 R * Cefazolin >=32 R * Cefoxitin <=4 S * Cefepime =16 R * Cefpodoxime >=8 R * Ceftriaxone >=64 R * Ciprofloxacin >=4 R * Levofloxacin >=8 R * Ertapenem <=0.12 S * Gentamicin <=1 S * Meropenem <=0.25 S * Nitrofurantoin =128 R * Piperacillin/Tazobactam =64 R * Tetracycline >=16 R * Tobramycin =8 I * Trimethoprim/Sulfa >=320 R due to this the patient will be started on meropenem case was discussed with the hospitalist for admission Vital Signs Vital Signs: Vital Signs Temperature 36.7 C 04/15/25 18:10 Pulse Rate 66 04/15/25 18:10 Respiratory Rate 20 04/15/25 18:10 Blood Pressure 124/61 04/15/25 18:10 Pulse Oximetry 97 04/15/25 18:10 Temperature 36.7 C 04/15/25 18:10 Pulse Rate 66 04/15/25 18:10 Respiratory Rate 20 04/15/25 18:10 Blood Pressure 112/61 04/15/25 22:01 Pulse Oximetry 97 04/15/25 22:00 Lab Data 04/15/25 22:44 04/15/25 22:44 Labs: Lab Results 04/15/25 04/15/25 Range/Units 22:29 22:44 WBC 4.3 L (4.5-10.0) K/mm3 RBC 3.68 L (4.2-5.4) M/mm3 Hgb 11.0 L (12.0-15.0) g/dL Hct 34.7 L (37.0-47.0) % MCV 94.3 (80-100) fl MCH 29.9 (26-34) pg MCHC 31.7 L (32-36) g/dl RDW 14.6 H (11.5-14.5) % Plt Count 250 (150-375) k/mm3 MPV 9.0 (7.4-10.4) fl Immature Gran % (Auto) 0.2 (0-0.5) % Neut % (Auto) 56.6 (45.5-73.1) % Lymph % (Auto) 29.9 (18.3-44.2) % [place] % (Auto) 8.4 (2.6-8.5) % Eos % (Auto) 4.0 (0-4.4) % Baso % (Auto) 0.9 (0.2-1.2) % Lymph # (Auto) 1.28 (0.9-3.2) K/mm3 [place] # (Auto) 0.4 (0.1-0.6) K/mm3 Eos # (Auto) 0.2 (0-0.3) K/mm3 Baso # (Auto) 0.0 (0.0-0.1) K/mm3 Abs Immat Gran (auto) 0.01 (0.00-0.031) K/mm3 Absolute Neuts (auto) 2.4 (1.3-6.7) K/mm3 Absolute Nucleated RBC 0.000 (0.0-0.012) K/mm3 Nucleated RBC % 0.0 (0.0-0.2) % Sodium 136 L (137-145) mmol/L Potassium 3.9 (3.4-5.0) mmol/L Chloride 103 (98-107) mmol/L Carbon Dioxide 24 (22-30) mmol/L Anion Gap 9 (4-12) mmol/L BUN 15 (7-17) mg/dL Creatinine 0.62 L (0.7-1.0) mg/dL Estim Creat Clear Calc Not Reportable Estimated GFR > 60 (59 - ) Glucose 104 (65-110) mg/dL Lactic Acid 1.1 (0.7-2.0) mmol/L Calcium 9.6 (8.4-10.2) mg/dL Total Bilirubin 0.6 (0.2-1.3) mg/dL AST 26 (14-36) U/L ALT 16 (6-35) U/L Alkaline Phosphatase 133 H (38-126) U/L Total Protein 7.8 (6.3-8.2) g/dL Albumin 4.4 (3.5-5.1) g/dL Urine Color Yellow (Yellow) Urine Appearance Clear (Clear) Urine pH 5.5 (5.0-9.0) Ur Specific [place] 1.018 (1.001-1.035) Urine Protein Negative (Negative) mg/dL Urine Glucose (UA) Negative (Negative) mg/dL Urine Ketones Negative (Negative) mg/dL Ur Blood (Man) 1+ H (Negative) Urine Nitrate Positive H (Negative) Urine Bilirubin Negative (Negative) Urine Urobilinogen 1.0 (<2.0) mg/dL Add Ur Microanalysis Reviewed Leukocyte Esterase Rfl 1+ H (Negative) KASSIDY/UL Urine RBC 0-2 (0-2) /hpf Urine WBC 0-5 (0-3) /hpf Ur Squamous Epith Cells None seen (Few) /hpf Urine Bacteria 4+ H /hpf Urine Casts 3-5 Discharge Plan Discharge Clinical Impression: Acute UTI Patient Disposition: Still a Patient Condition: Stable Patient Language: Belarusian Prescriptions: No Action furosemide 40 mg tablet 40 mg PO QAM nitroglycerin 0.4 mg tablet, sublingual 0.4 mg SUBLINGUAL Q5M PRN (Reason: chest pain) montelukast [Singulair] 10 mg tablet 10 mg PO DAILY albuterol sulfate [Ventolin HFA] 90 mcg/actuation HFA aerosol inhaler 1 inhalation INHALATION Q4H buspirone 15 mg tablet 15 mg PO QID ondansetron HCl 4 mg tablet 4 mg PO Q8H dtnzpazzyk-tzfdfvlaykcti-vxzi 50-325-40 mg tablet 1 tablet PO Q6H PRN (Reason: pain) gabapentin 600 mg tablet 300 mg PO Q12H baclofen 10 mg tablet 10 mg PO Q8H PRN (Reason: muscle spasm) potassium chloride 20 mEq tablet,ER particles/crystals 20 meq PO DAILY sertraline 100 mg tablet 100 mg PO DAILY clopidogrel 75 mg tablet 75 mg PO DAILY Dulera 200-5 mcg/actuation HFA aerosol inhaler 2 inh inhalation Q12H ferrous sulfate [FeroSul] 325 mg (65 mg iron) tablet 325 mg PO DAILY loperamide 2 mg capsule 2 mg PO DAILY pantoprazole 40 mg tablet,delayed release (DR/EC) 40 mg PO DAILY aspirin 81 mg tablet,delayed release (DR/EC) 81 mg PO DAILY atorvastatin 40 mg tablet 40 mg PO DAILY cyclobenzaprine 10 mg tablet 10 mg PO DAILY spironolactone 25 mg tablet 25 mg PO DAILY cefdinir 300 mg Capsule 300 mg PO Q12HR Qty: 8 0RF hydrocodone-acetaminophen 10-325 mg tablet 1 tablet PO DAILY PRN (Reason: pain) Qty: 5 0RF Follow-up/Referrals: PHYSICIAN,TRADE SHOW SPECIALIST [Primary Care Provider, Internal Medicine]
[2025-04-16 00:31] VITALS: BP 109/61; PULSE 82; RESP 14; O2SAT 95
[2025-04-16] MEDS: MEROPENEM 1 GM in SODIUM CHLORIDE 0.9% IV 100 ML 200 ML IVPB ×4 (00:35→23:52)
[2025-04-16] MEDS: Please enter patient height and weight for medication dosing 1 EACH XX (00:36)
--- NOTE | 2025-04-16 00:45 | WPCEDHO ---
ED Hand Off Checklist All vitals saved: Y IV Site documented: Y All med administrations documented: Y, meropenem running Triage Note Triage Note Pt to ED from home via [place] 04/15/25 21:20 [facility] burning with urination for 3 weeks, reports home health came and did a UA which found E. Coli. Pt [place] and is A&Ox3 on arrival. Agree with triage note. Allergies Penicillins Allergy (Mild, Verified 06/13/19 14:34) Rash Active Medications including assessments/comments Meropenem 1 gm/ Sodium (Chloride) 100 mls @ 200 mls/hr IVPB ONCE ONE Stop: 04/16/25 00:48 Last Admin: 04/16/25 00:35 Dose: 200 mls/hr Documented By: JAYDE Infusion/Titration Document 04/16/25 00:35 [facility] (Rec: 04/16/25 00:36 HNK [id number]) Intake IV Site Peripheral Access Right Antecubital Container Volume 100 Waste Amount 0 Dosing Infusion Rate 200 Increase/Decrease Started Elapsed Time Elapsed Time ( 0m minutes) Miscellaneous Information (Please Enter Patient Height And Weight For Medication Dosing) 1 each XX CLARIFY ELDER Stop: 05/16/25 00:00 Last Admin: 04/16/25 00:36 Dose: 1 each Documented By: JAYDE Interventions/Assessments IV / Saline Lock, Insert Start: 04/15/25 18:04 Freq: Status: Active Protocol: Document 04/15/25 22:52 [facility] (Rec: 04/15/25 22:52 [facility] [id number]) IV Assessment Peripheral Access Right Antecubital IV Catheter Access Initiated IV Insertion Date 04/15/25 IV Insertion Time 22:52 Catheter Gauge 20 IV Insertion 1 Attempts Ultrasound Used for No Placement IV Site Assessment WNL IV Care and WNL Maintenance PA: Genitourinary Assessment Start: 04/15/25 18:04 Freq: Status: Active Protocol: Document 04/15/25 21:50 [facility] (Rec: 04/15/25 21:51 [facility] [id number]) Assessment Genitourinary Burning Symptoms Voiding Method Brief/Diaper Genitourinary Per home health nurse pt has E. Coli in urine. Comments Last Vital Signs Temperature 98.1 F 04/15/25 18:10 Pulse Rate 82 04/16/25 00:31 Respiratory Rate 14 04/16/25 00:31 Pulse Oximetry 95 04/16/25 00:31 Blood Pressure 109/61 04/16/25 00:31 Blood Pressure Mean 75 04/16/25 00:31 Blood Pressure Position Sitting 04/15/25 18:10 Weight 95.5 kg 04/16/25 00:39 Last Result - Abnormals Only WBC 4.3 K/mm3 (4.5-10.0) L 04/15/25 22:44 RBC 3.68 M/mm3 (4.2-5.4) L 04/15/25 22:44 Hgb 11.0 g/dL (12.0-15.0) L 04/15/25 22:44 Hct 34.7 % (37.0-47.0) L 04/15/25 22:44 MCHC 31.7 g/dl (32-36) L 04/15/25 22:44 RDW 14.6 % (11.5-14.5) H 04/15/25 22:44 Sodium 136 mmol/L (137-145) L 04/15/25 22:44 Creatinine 0.62 mg/dL (0.7-1.0) L 04/15/25 22:44 Alkaline Phosphatase 133 U/L (38-126) H 04/15/25 22:44 Ur Blood (Man) 1+ (Negative) H 04/15/25 22:29 Urine Nitrate Positive (Negative) H 04/15/25 22:29 Leukocyte Esterase Rfl 1+ KASSIDY/UL (Negative) H 04/15/25 22:29 Urine Bacteria 4+ /hpf H 04/15/25 22:29 Most Recent Suicide Severity Rating Suicide Severity Rating NO RISK INDICATED 04/15/25 21:20
[2025-04-16 01:30] VITALS: BMI 35.2
--- NOTE | 2025-04-16 01:30 | ADMGEN ---
This patient, Kamilah Hale, was admitted to [facility] Surg Room 322-02. Patient/family oriented to hospital policies and general routines including ID bracelet, bed and alarms, visiting hours, pain management, procedures, bathroom and other care routines, personal items, smoking policy, room service/diet, and visiting hours. Information on how to activate the Rapid Response Team has been discussed. Patient/Family are encouraged to report perceived risks to care and to ask questions if they do not understand what they are told or what they should do.
[2025-04-16] MEDS: ACETAMINOPHEN 325 MG TABLET 650 MG PO ×2 (01:50→20:41)
--- OUTSIDE RECORDS SUMMARY | 2025-04-16 02:03 | XMS_ITS | Clinical Summary ---
Author Organization [facility] Marco Vasco Address [address] [place] [address] Care Team Providers Care Line Director Name Role Phone Amarjit Zuniga MD Primary Care Provider +1- [phone] Source Comments [facility] Marco Vasco,non-owned Affiliates and Associated Physician Practices is amultiple site organization consisting of ambulatory clinics and hospital sitesin [place], [place], [place] and [place]. This disclosure is being madepursuant to the Care Everywhere program and may not contain all information available regarding this patient. Last updated 18.[facility] Marco Vasco Medications * Be aware that medications may [...] Active Problems Problem Noted Date Diagnosed Date FPC current use of anticoagulant therapy 0 01/23/2025 History of DVT (deep vein thrombosis) 01/23/2025 Chronic hypoxic respiratory failure 07/24/2024 Chronic obstructive pulmonary disease 11/20/2020 Essential hypertension 10/06/2017 CHF (congestive heart failure) 04/19/2017 Encounters Date Type Department Care Team Description 04/11/2025 Telephone [facility] - Centralized Scheduling [facility] [place] [phone] Fabiana Ragland DO Reschedule Appointment 04/10/2025 Telephone [facility] - Centralized Scheduling [address] [place] [id number] Fabiana Ragland DO Reschedule Appointment 04/09/2025 Telephone [facility] - Centralized Scheduling [address] [place] [phone] Fabiana Ragland DO Reschedule Appointment 01/23/2025 10:00 AM CDT Office Visit [facility] - [facility] [address] [facility] [address] [place] [address] Fabiana Ragland DO Chronic congestive heart failure, unspecified heart failure type (HCC) (Primary Dx); Essential hypertension; 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; Mixed hyperlipidemia; History of DVT (deep vein thrombosis); Left hip fracture s/p ORIF 11/202401/23/2025 Travel from Last 3 Months Social History Tobacco Use Types Packs/Day Years Used Date Smoking Tobacco: Never Assessed Comments Unknown Sex and Gender Information Value Date Recorded Sex Assigned at Not on file 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 Gender Identity Not on file Sexual Orientation [...] (HCC) Essential hypertension 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 Mixed hyperlipidemia History [...] (Bezet) 440 ms [facility] Calculated P [place] 68 degrees [facility] Calculated R [place] -28 degrees [facility] Calculated T [place] 78 degrees [facility] Interpretation EKG NORMAL SINUS RHYTHM SEPTAL INFARCT , AGE UNDETERMINED ABNORMAL ECG NO PREVIOUS ECGS AVAILABLE Confirmed by FABIANA RAGLAND DO ([id number]) on 01/23/2025 2:49:28 PM [facility] 01/23/2025 10:4 5 AM CDT 01/23/2025 2:49 PM CDT us Fabiana Ragland DO ECG ORDERABLES Edited Result - Final DELMIS CARDOZA from Last 3 Months Insurance [facility] Care Teams Line Director Relationship Specialty Start Date End Date Amarjit Zuniga MD [address] [place] [address] [address] [place] [address] PCP - General Family Medicine 03/04/16
[2025-04-16 02:24] VITALS: BP 112/50; PULSE 62; RESP 18; TEMP 36.7; O2SAT 97
[2025-04-16 06:18] LABS: Hematocrit 31.8 % (37.0-47.0); Hemoglobin 9.7 g/dL (12.0-15.0); Mean Corpuscular HGB Conc 30.5 g/dl (32-36); Mean Corpuscular Hemoglobin 29.4 pg (26-34); Mean Corpuscular Volume 96.4 fl (80-100); Platelet Count Result 213 k/mm3 (150-375); Red Blood Count 3.30 M/mm3 (4.2-5.4); White Blood Count 3.5 K/mm3 (4.5-10.0)
[2025-04-16 06:38] LABS: Anion Gap 4 mmol/L (4-12); Blood Urea Nitrogen 14 mg/dL (7-17); Calcium 9.1 mg/dL (8.4-10.2); Carbon Dioxide 26 mmol/L (22-30); Chloride 104 mmol/L (98-107); Estimated CRCL calculation 73 ml/min; Estimated Glomerular Filt Rate > 60; Glucose 89 mg/dL (65-110); Potassium 3.2 mmol/L (3.4-5.0); Sodium 134 mmol/L (137-145)
--- NOTE | 2025-04-16 08:16 | PM.IMHP ---
H&P: HPI History of Present Illness Date/Time: 04/16/25921 Chief Complaint: Dysuria Narrative: Pt to the ED c/o dysuria x3 weeks. Pt discussed with PCP / home health and a UA was obtained which yielded infection. Pt was put on cefdinir awaiting UC. UC yielding E coli, cef meds resistant. Pt was started on meropenum in the ED and continues inpt. Today pt reports that her dysuria is getting better and denies any other issues. Pt reports recent L hip surgery at [facility] in November 2024 and continues to undergo PT/OT at home. Pt also has a medical caregiver who comes to her house to help. Review of Systems Review of Systems: All systems reviewed & are unremarkable except as noted in HPI and below PMFSH Past Medical History Medical History DVT (deep venous thrombosis) Asthma Family History Family History (Updated 04/16/25 @ 01:39 by Mary Jama RN) Sibling Diabetes mellitus Social History Social History Smoking status: Never smoker Alcohol intake: never Substance use: never Do You Feel Safe in your Home?: Yes Lack of Transportation: No Lack of Food: Never True Current Housing: I Have Housing Concerned About Future Housing: No Difficulty Paying Gas/Electric Bills: No Difficulty Paying for Meds: No Currently Unemployed: No Education: Grade School Difficulty w/ Childcare or Family Care: No Spiritual care concerns: No Meds Home Medications and Allergies Home Medications ?Medication ?Instructions ?Recorded ?Confirmed ?Type albuterol sulfate 90 mcg/actuation 1 inhalation inhalation Q4H 06/11/19 04/16/25 History aerosol inhaler (Ventolin HFA) furosemide 40 mg tablet 40 mg PO QAM 06/11/19 04/16/25 History montelukast 10 mg tablet 10 mg PO DAILY 06/11/19 04/16/25 History (Singulair) nitroglycerin 0.4 mg sublingual 0.4 mg sublingual Q5M PRN chest 06/11/19 04/16/25 History tablet pain buspirone 15 mg tablet 15 mg PO QID 06/13/19 04/16/25 History ondansetron HCl 4 mg tablet 4 mg PO Q8H 06/13/19 11/15/24 History aspirin 81 mg tablet,delayed 81 mg PO DAILY 11/15/24 04/16/25 History release atorvastatin 40 mg tablet 40 mg PO DAILY 11/15/24 04/16/25 History baclofen 10 mg tablet 10 mg PO Q8H PRN muscle spasm 11/15/24 11/15/24 History kmoulaopzp-wykvybzzoxzzm-odubbnhz 1 tablet PO Q6H PRN pain 11/15/24 11/15/24 History 50 mg-325 mg-40 mg tablet clopidogrel 75 mg tablet 75 mg PO DAILY 11/15/24 04/16/25 History cyclobenzaprine 10 mg tablet 10 mg PO DAILY 11/15/24 11/15/24 History ferrous sulfate 325 mg (65 mg 325 mg PO DAILY 11/15/24 11/15/24 History iron) tablet (FeroSul) gabapentin 600 mg tablet 300 mg PO Q12H 11/15/24 11/16/24 History loperamide 2 mg capsule 2 mg PO DAILY 11/15/24 11/15/24 History mometasone-formoterol HFA 200 2 inh inhalation Q12H 11/15/24 11/15/24 History mcg-5 mcg/actuation aerosol inhaler (Dulera) pantoprazole 40 mg tablet,delayed 40 mg PO DAILY 11/15/24 11/15/24 History release potassium chloride 20 mEq 20 meq PO DAILY 11/15/24 04/16/25 History tablet,extended release(part/cryst) sertraline 100 mg tablet 100 mg PO DAILY 11/15/24 04/16/25 History spironolactone 25 mg tablet 25 mg PO DAILY 11/16/24 04/16/25 History cefdinir 300 mg capsule 300 mg PO Q12HR #8 caps 11/17/24 Rx hydrocodone 10 mg-acetaminophen 1 tablet PO DAILY PRN pain #5 tabs 11/17/24 Rx 325 mg tablet Allergies Allergy/AdvReac Type Severity Reaction Status Date / Time Penicillins Allergy Mild Rash Verified 04/16/25 01:38 Vital Signs Vital Signs - 24 hr 04/15/25 18:10 04/15/25 21:59 04/15/25 22:00 Temperature 98.1 F Pulse Rate 66 Respiratory Rate 20 Blood Pressure 124/61 Pulse Oximetry 97 98 97 Oxygen Delivery 04/15/25 22:01 04/15/25 23:01 04/15/25 23:16 Temperature Pulse Rate 73 Respiratory Rate 18 Blood Pressure 112/61 123/61 113/78 Pulse Oximetry Oxygen Delivery 04/15/25 23:31 04/16/25 00:31 04/16/25 01:45 Temperature Pulse Rate 68 82 Respiratory Rate 16 14 Blood Pressure 119/70 109/61 Pulse Oximetry 95 Oxygen Delivery Room Air 04/16/25 02:24 Temperature 98.0 F Pulse Rate 62 Respiratory Rate 18 Blood Pressure 112/50 L Pulse Oximetry 97 Oxygen Delivery Exam Narrative: Chronically ill-appearing obese, profoundly [place] R>L Const: General: comfortable and no acute distress HENMT: Face/Nose/Sinus: Normal nares present Mouth: Yes moist mucous membranes Other: edentulous Eyes: General: appearance normal, both eyes and all related structures Sclera: sclerae normal Pupils: Equal, round and reactive pupils present Neck: Neck: supple Carotids: no bruits Resp: Effort & Inspection: normal respiratory effort Auscultation: diminished lung sounds (throughout) Cardio: Rate: regular rate Rhythm: regular rhythm GI: Inspection: non-distended GI Palp: Yes Soft to palpation and No Tenderness to palpation present (GI) Auscultation: normal bowel sounds : General: Yes bladder normal to palpation Skin: Other: Bilateral knees with old surgical scars bilaterally L hip old Surgical scar Neuro: Motor exam (neuro): 5/5 motor strength present throughout Sensory Exam: normal sensation Other: edentulous, difficult to understand speech at times, pt reports chronic Extrem: General: normal exam except as noted Psych: Mental Status: mental status grossly normal Affect: normal affect H&P: Results Labs Labs: Short CBC 04/15/25 04/16/25 Range/Units 22:44 06:00 WBC 4.3 L 3.5 L (4.5-10.0) K/mm3 Hgb 11.0 L 9.7 L (12.0-15.0) g/dL Hct 34.7 L 31.8 L (37.0-47.0) % Plt Count 250 213 (150-375) k/mm3 [facility] 04/15/25 04/16/25 22:44 06:00 Sodium 136 L 134 L Potassium 3.9 3.2 L Chloride 103 104 Carbon Dioxide 24 26 BUN 15 14 Creatinine 0.62 L 0.61 L Glucose 104 89 Calcium 9.6 9.1 Liver Function 04/15/25 Range/Units 22:44 Total Bilirubin 0.6 (0.2-1.3) mg/dL AST 26 (14-36) U/L ALT 16 (6-35) U/L Alkaline Phosphatase 133 H (38-126) U/L Albumin 4.4 (3.5-5.1) g/dL Urine 04/15/25 Range/Units 22:29 Urine Color Yellow (Yellow) Urine Appearance Clear (Clear) Urine pH 5.5 (5.0-9.0) Ur Specific [place] 1.018 (1.001-1.035) Urine Protein Negative (Negative) mg/dL Urine Glucose (UA) Negative (Negative) mg/dL Assessment and Plan Assessment and plan (1) Acute UTI: Code(s): N39.0 - Urinary tract infection, site not specified Status: Acute Assessment and Plan: The patient had an outpatient urinalysis done that came back with a multi-drug resistant infection of E coli the patient reports he has continued to have burning with urination -Dysuria improving -Continue Meropenem (2) Electrolyte abnormality: Code(s): E87.8 - Other disorders of electrolyte and fluid balance, not elsewhere classified Status: Acute Assessment and Plan: K 3.2, appears to be on Kcl 20meq PO daily and Lasix -Will continue Kcl upon med rec (3) DVT (deep venous thrombosis): Qualifiers: Affected thrombotic vein of extremity: other lower extremity vein Chronicity: unspecified DVT location: lower extremity Laterality: unspecified laterality Qualified Code(s): I82.499 - Acute embolism and thrombosis of other specified deep vein of unspecified lower extremity Code(s): I82.409 - Acute embolism and thrombosis of unspecified deep veins of unspecified lower extremity Status: Acute Assessment and Plan: Continue Plavix Plan UTI tx Quality VTE Prophylaxis VTE prophylaxis: mechanical ordered Hospitalist [facility] Advance Care Plan I have confirmed that the patient's Advanced Care Plan is present, code status is documented, or surrogate decision maker is listed in patient medical record.: Yes The patient's Advanced Care plan is not present because:: Patient doesn't want to name surrogate or provider advance care plan
[2025-04-16] MEDS: SPIRONOLACTONE 25 MG TABLET PO (08:18)
[2025-04-16] MEDS: ATORVASTATIN 40 MG TABLET PO (08:18)
[2025-04-16] MEDS: FUROSEMIDE 40 MG TABLET PO (08:18)
[2025-04-16] MEDS: SERTRALINE HCL 50 MG TABLET 100 MG PO (08:18)
[2025-04-16] MEDS: CLOPIDOGREL BISULFATE 75 MG TABLET PO (08:18)
[2025-04-16] MEDS: ASPIRIN 81 MG ENTERIC TABLET PO (08:18)
[2025-04-16] MEDS: MONTELUKAST SODIUM 10 MG TABLET PO (08:18)
[2025-04-16 14:00] VITALS: BP 105/51; PULSE 62; RESP 16; TEMP 36.7; O2SAT 98
[2025-04-16] MEDS: LOPERAMIDE HCL 2 MG CAPSULE PO ×2 (16:21→20:46)
[2025-04-16] MEDS: POTASSIUM CHLORIDE 20 MEQ ER TABLET PO (16:21)
[2025-04-16] MEDS: SACCHAROMYCES BOULARDII 250 MG CAPSULE PO (16:21)
[2025-04-16 20:42] VITALS: BP 121/50; PULSE 72; RESP 20; TEMP 36.1; O2SAT 100
[2025-04-16 22:03] VITALS: O2SAT 99
[2025-04-17 04:46] VITALS: BP 117/48; PULSE 72; RESP 24; TEMP 36; O2SAT 97
[2025-04-17] MEDS: ACETAMINOPHEN 325 MG TABLET 650 MG PO ×2 (05:12→22:23)
[2025-04-17 06:35] LABS: Hematocrit 29.5 % (37.0-47.0); Hemoglobin 9.2 g/dL (12.0-15.0); Mean Corpuscular HGB Conc 31.2 g/dl (32-36); Mean Corpuscular Hemoglobin 30.0 pg (26-34); Mean Corpuscular Volume 96.1 fl (80-100); Platelet Count Result 175 k/mm3 (150-375); Red Blood Count 3.07 M/mm3 (4.2-5.4); White Blood Count 2.6 K/mm3 (4.5-10.0)
[2025-04-17 07:00] LABS: Anion Gap 3 mmol/L (4-12); Blood Urea Nitrogen 10 mg/dL (7-17); Calcium 8.5 mg/dL (8.4-10.2); Carbon Dioxide 27 mmol/L (22-30); Chloride 105 mmol/L (98-107); Estimated CRCL calculation 80 ml/min; Estimated Glomerular Filt Rate > 60; Glucose 91 mg/dL (65-110); Potassium 3.3 mmol/L (3.4-5.0); Sodium 135 mmol/L (137-145)
[2025-04-17] MEDS: MEROPENEM 1 GM in SODIUM CHLORIDE 0.9% IV 100 ML 200 ML IVPB ×3 (08:15→23:04)
[2025-04-17] MEDS: ASPIRIN 81 MG ENTERIC TABLET PO (08:16)
[2025-04-17] MEDS: MONTELUKAST SODIUM 10 MG TABLET PO (08:16)
[2025-04-17] MEDS: SPIRONOLACTONE 25 MG TABLET PO (08:16)
[2025-04-17] MEDS: POTASSIUM CHLORIDE 20 MEQ ER TABLET PO (08:16)
[2025-04-17] MEDS: FUROSEMIDE 40 MG TABLET PO (08:16)
[2025-04-17] MEDS: SERTRALINE HCL 50 MG TABLET 100 MG PO (08:16)
[2025-04-17] MEDS: CLOPIDOGREL BISULFATE 75 MG TABLET PO (08:16)
[2025-04-17] MEDS: ATORVASTATIN 40 MG TABLET PO (08:16)
[2025-04-17] MEDS: SACCHAROMYCES BOULARDII 250 MG CAPSULE PO ×2 (08:17→16:53)
[2025-04-17 08:20] VITALS: BP 125/65
--- NOTE | 2025-04-17 10:05 | PC.NURSE ---
spoke with Dr. Murphy about the duplicate order for potassium this morning. The patient received the already scheduled potassium tablets this morning with her mediations. Dr. Murphy gave the okay to hold the potassium packets ordered for 0900 until the 1700 dose.
--- NOTE | 2025-04-17 12:27 | PM.IMPN ---
Progress Note: A&P Assessment and Plan (1) Electrolyte abnormality: Code(s): E87.8 - Other disorders of electrolyte and fluid balance, not elsewhere classified Status: Acute (2) Acute UTI: Code(s): N39.0 - Urinary tract infection, site not specified Status: Acute Plan 75-year-old female who presents emergency department with chief complaint of burning with urination for the last 3 weeks the patient had an outpatient urinalysis done that came back with a multi-drug resistant infection of E coli. 1. E coli UTI: Continue with meropenem 2. Hypokalemia: Supplement potassium 3. Code status: Full 4. DVT prophylaxis: Heparin subQ 5. Disposition: Pending improvement Time Spent With Patient Time: 36 mins Subjective Date/time seen: 04/17/25 12:27 Interval history: No events overnight Feeling better Review of Systems Review of Systems: All systems reviewed & are unremarkable except as noted in HPI and below Exam Const: General: comfortable and no acute distress HENMT: Mouth: Yes moist mucous membranes Eyes: Sclera: sclerae normal Neck: Neck: supple Resp: Auscultation: diminished lung sounds (throughout) Cardio: Rate: regular rate Rhythm: regular rhythm GI: Inspection: non-distended GI Palp: Yes Soft to palpation Auscultation: normal bowel sounds Skin: Other: Bilateral knees with old surgical scars bilaterally L hip old Surgical scar Neuro: Motor exam (neuro): 5/5 motor strength present throughout Extrem: General: normal exam except as noted Psych: Mental Status: mental status grossly normal Objective Data Vital Signs Vital Signs: Vital Signs - 24 hr 04/16/25 14:00 04/16/25 20:00 04/16/25 20:42 Temperature 98.0 F 97.0 F L Pulse Rate 62 72 Respiratory Rate 16 20 Blood Pressure 105/51 L 121/50 L Pulse Oximetry 98 100 Oxygen Delivery Room Air 04/16/25 22:03 04/17/25 04:46 04/17/25 08:20 Temperature 96.8 F L Pulse Rate 72 Respiratory Rate 24 H Blood Pressure 117/48 L 125/65 Pulse Oximetry 99 97 Oxygen Delivery Room Air Intake/Output Intake/Output: Intake & Output 04/14/25 04/15/25 04/16/25 04/17/25 23:59 23:59 23:59 23:59 Intake Total 877 400 Balance 877 400 Meds/Results Medications: Active Medications Generic Name Dose Route Start Last Admin Trade Name Freq PRN Reason Stop Dose Admin Acetaminophen 650 mg 04/16/25 00:19 04/17/25 05:12 Acetaminophen 325 Mg Tablet PO 650 mg Q4H PRN Administration Mild Pain (1-3) or Fever Albuterol 1 puff 04/16/25 05:50 Albuterol Sulfate (*Sp) Aerosol 1 Puff INHALATION Q4HRT PRN SHORTNESS OF BREATH/WHEEZING Aspirin 81 mg 04/16/25 09:00 04/17/25 08:16 Aspirin 81 Mg Enteric Tablet PO 81 mg DAILY ELDER Administration Atorvastatin Calcium 40 mg 04/16/25 09:00 04/17/25 08:16 Atorvastatin 40 Mg Tablet PO 40 mg DAILY ELDER Administration Buspirone HCl 15 mg 04/16/25 06:00 04/17/25 12:05 Buspirone Hcl 5 Mg Tablet PO 15 mg Q6HR ELDER Administration Clopidogrel Bisulfate 75 mg 04/16/25 09:00 04/17/25 08:16 Clopidogrel Bisulfate 75 Mg Tablet PO 75 mg DAILY ELDER Administration Furosemide 40 mg 04/16/25 09:00 04/17/25 08:16 Furosemide 40 Mg Tablet PO 40 mg QAM ELDER Administration Meropenem 1 gm/ Sodium 100 mls @ 200 mls/hr 04/16/25 08:00 04/17/25 08:15 Chloride IVPB 04/21/25 07:59 200 mls/hr Q8H ELDER Administration Loperamide HCl 2 mg 04/16/25 13:52 04/16/25 20:46 Loperamide Hcl 2 Mg Capsule PO 2 mg PRN PRN Administration Diarrhea Montelukast Sodium 10 mg 04/16/25 09:00 04/17/25 08:16 Montelukast Sodium 10 Mg Tablet PO 10 mg DAILY ELDER Administration Ondansetron HCl 4 mg 04/16/25 00:19 Ondansetron Inj 4 Mg/2 Ml Vial IV PUSH Q4H PRN Nausea Potassium Chloride 20 meq 04/16/25 13:45 04/17/25 08:16 Potassium Chloride 20 Meq Er Tablet PO 05/17/25 13:44 20 meq On Hold: 04/17/25 08:54 DAILY ELDER Administration Resume: 04/18/25 09:00 Potassium Chloride 40 meq 04/17/25 09:00 04/17/25 10:04 Potassium Chloride 20 Meq Packet (For Liquid) PO 04/17/25 17:01 Not Given BID ELDER Saccharomyces Boulardii 250 mg 04/16/25 17:00 04/17/25 08:17 Saccharomyces Boulardii 250 Mg Capsule PO 250 mg BID ELDER Administration Sertraline HCl 100 mg 04/16/25 09:00 04/17/25 08:16 Sertraline Hcl 50 Mg Tablet PO 100 mg DAILY ELDER Administration Spironolactone 25 mg 04/16/25 09:00 04/17/25 08:16 Spironolactone 25 Mg Tablet PO 25 mg DAILY ELDER Administration Radiology Results: ITS Impressions Chest X-Ray 04/16/25 07:46 IMPRESSION: 1. No acute cardiopulmonary findings given portable technique. Labs Labs: Laboratory Results - last 24 hr 04/17/25 06:21 WBC 2.6 L RBC 3.07 L Hgb 9.2 L Hct 29.5 L MCV 96.1 MCH 30.0 MCHC 31.2 L RDW 14.6 H Plt Count 175 MPV 8.9 Sodium 135 L Potassium 3.3 L Chloride 105 Carbon Dioxide 27 Anion Gap 3 L BUN 10 Creatinine 0.55 L Estim Creat Clear Calc 80 Estimated GFR > 60 Glucose 91 Calcium 8.5 Quality VTE Prophylaxis VTE prophylaxis: pharmacologic ordered
[2025-04-17 14:00] VITALS: BP 119/56; PULSE 73; RESP 16; TEMP 36.2; O2SAT 99
[2025-04-17] MEDS: POTASSIUM CHLORIDE 20 MEQ PACKET (FOR LIQUID) 40 MEQ PO (16:53)
[2025-04-17 19:48] VITALS: BP 120/54; PULSE 80; RESP 18; TEMP 36.9; O2SAT 100
[2025-04-18 04:43] VITALS: BP 109/47; PULSE 74; RESP 18; TEMP 36.1; O2SAT 95
[2025-04-18 06:21] LABS: Hematocrit 32.3 % (37.0-47.0); Hemoglobin 10.0 g/dL (12.0-15.0); Mean Corpuscular HGB Conc 31.0 g/dl (32-36); Mean Corpuscular Hemoglobin 29.8 pg (26-34); Mean Corpuscular Volume 96.1 fl (80-100); Platelet Count Result 195 k/mm3 (150-375); Red Blood Count 3.36 M/mm3 (4.2-5.4); White Blood Count 3.3 K/mm3 (4.5-10.0)
[2025-04-18 06:33] LABS: Anion Gap 6 mmol/L (4-12); Blood Urea Nitrogen 10 mg/dL (7-17); Calcium 8.8 mg/dL (8.4-10.2); Carbon Dioxide 27 mmol/L (22-30); Chloride 102 mmol/L (98-107); Estimated CRCL calculation 71 ml/min; Estimated Glomerular Filt Rate > 60; Glucose 103 mg/dL (65-110); Potassium 3.8 mmol/L (3.4-5.0); Sodium 135 mmol/L (137-145)
[2025-04-18] MEDS: MEROPENEM 1 GM in SODIUM CHLORIDE 0.9% IV 100 ML 200 ML IVPB ×3 (08:55→23:00)
[2025-04-18] MEDS: SERTRALINE HCL 50 MG TABLET 100 MG PO (09:50)
[2025-04-18] MEDS: SPIRONOLACTONE 25 MG TABLET PO (09:51)
[2025-04-18] MEDS: FUROSEMIDE 40 MG TABLET PO (09:51)
[2025-04-18] MEDS: ATORVASTATIN 40 MG TABLET PO (09:51)
[2025-04-18] MEDS: POTASSIUM CHLORIDE 20 MEQ ER TABLET PO (09:51)
[2025-04-18] MEDS: SACCHAROMYCES BOULARDII 250 MG CAPSULE PO ×2 (09:51→16:52)
[2025-04-18] MEDS: MONTELUKAST SODIUM 10 MG TABLET PO (09:51)
[2025-04-18] MEDS: CLOPIDOGREL BISULFATE 75 MG TABLET PO (09:51)
[2025-04-18] MEDS: ASPIRIN 81 MG ENTERIC TABLET PO (09:51)
[2025-04-18 14:00] VITALS: BP 123/57; PULSE 79; RESP 18; TEMP 36.8; O2SAT 98
--- NOTE | 2025-04-18 15:48 | PM.IMPN ---
Progress Note: A&P Assessment and Plan (1) Electrolyte abnormality: Code(s): E87.8 - Other disorders of electrolyte and fluid balance, not elsewhere classified Status: Acute (2) Acute UTI: Code(s): N39.0 - Urinary tract infection, site not specified Status: Acute Plan 75-year-old female who presents emergency department with chief complaint of burning with urination for the last 3 weeks the patient had an outpatient urinalysis done that came back with a multi-drug resistant infection of E coli. 1. E coli UTI: MDR Continue with meropenem Consult ID team 2. Hypokalemia: Supplement potassium Chronic anemia Monitor H&H Transfuse if hemoglobin less than 7 Mild hyponatremia Continue to monitor 3. Code status: Full 4. DVT prophylaxis: Heparin subQ 5. Disposition: Pending improvement Subjective Date/time seen: 04/18/25 15:48 Interval history: Patient was seen examined at bedside. She is improving. Urinary symptoms improving. Consulted ID team. Lab tests reviewed. WBC 2.3, hemoglobin 10 Review of Systems Review of Systems: All systems reviewed & are unremarkable except as noted in HPI and below Exam Narrative: Chronically ill-appearing obese, profoundly [place] R>L Const: General: comfortable and no acute distress HENMT: Face/Nose/Sinus: Normal nares present Mouth: Yes moist mucous membranes Other: edentulous Eyes: General: appearance normal, both eyes and all related structures Sclera: sclerae normal Pupils: Equal, round and reactive pupils present Neck: Neck: supple Carotids: no bruits Resp: Effort & Inspection: normal respiratory effort Auscultation: diminished lung sounds (throughout) Cardio: Rate: regular rate Rhythm: regular rhythm GI: Inspection: non-distended Auscultation: normal bowel sounds : General: Yes bladder normal to palpation Bimanual exam- vagina & uterus: bladder normal to palpation Skin: Other: Bilateral knees with old surgical scars bilaterally L hip old Surgical scar Neuro: Cranial nerves: Yes Equal, round and reactive pupils present Motor exam (neuro): 5/5 motor strength present throughout Sensory Exam: normal sensation Other: edentulous, difficult to understand speech at times, pt reports chronic Extrem: General: normal exam except as noted Psych: Mental Status: mental status grossly normal Affect: normal affect Objective Data Vital Signs Vital Signs: Vital Signs - 24 hr 04/17/25 19:48 04/17/25 20:00 04/18/25 04:43 Temperature 98.4 F 97.0 F L Pulse Rate 80 74 Respiratory Rate 18 18 Blood Pressure 120/54 L 109/47 L Pulse Oximetry 100 95 Oxygen Delivery Room Air 04/18/25 14:00 Temperature 98.2 F Pulse Rate 79 Respiratory Rate 18 Blood Pressure 123/57 L Pulse Oximetry 98 Oxygen Delivery Intake/Output Intake/Output: Intake & Output 04/15/25 04/16/25 04/17/25 04/18/25 23:59 23:59 23:59 23:59 Intake Total 877 1033 590 Balance 877 1033 590 Meds/Results Medications: Active Medications Generic Name Dose Route Start Last Admin Trade Name Freq PRN Reason Stop Dose Admin Acetaminophen 650 mg 04/16/25 00:19 04/17/25 22:23 Acetaminophen 325 Mg Tablet PO 650 mg Q4H PRN Administration Mild Pain (1-3) or Fever Albuterol 1 puff 04/16/25 05:50 Albuterol Sulfate (*Sp) Aerosol 1 Puff INHALATION Q4HRT PRN SHORTNESS OF BREATH/WHEEZING Aspirin 81 mg 04/16/25 09:00 04/18/25 09:51 Aspirin 81 Mg Enteric Tablet PO 81 mg DAILY ELDER Administration Atorvastatin Calcium 40 mg 04/16/25 09:00 04/18/25 09:51 Atorvastatin 40 Mg Tablet PO 40 mg DAILY ELDER Administration Buspirone HCl 15 mg 04/16/25 06:00 04/18/25 12:07 Buspirone Hcl 5 Mg Tablet PO 15 mg Q6HR ELDER Administration Clopidogrel Bisulfate 75 mg 04/16/25 09:00 04/18/25 09:51 Clopidogrel Bisulfate 75 Mg Tablet PO 75 mg DAILY ELDER Administration Furosemide 40 mg 04/16/25 09:00 04/18/25 09:51 Furosemide 40 Mg Tablet PO 40 mg QAM ELDER Administration Heparin Sodium (Porcine) 5,000 units 04/17/25 21:00 04/18/25 09:51 Heparin Sodium 5,000 Units/Ml Vial SUB-Q 5,000 units Q12HR ELDER Administration Meropenem 1 gm/ Sodium 100 mls @ 200 mls/hr 04/16/25 08:00 04/18/25 08:55 Chloride IVPB 04/21/25 07:59 200 mls/hr Q8H ELDER Administration Loperamide HCl 2 mg 04/16/25 13:52 04/16/25 20:46 Loperamide Hcl 2 Mg Capsule PO 2 mg PRN PRN Administration Diarrhea Montelukast Sodium 10 mg 04/16/25 09:00 04/18/25 09:51 Montelukast Sodium 10 Mg Tablet PO 10 mg DAILY ELDER Administration Ondansetron HCl 4 mg 04/16/25 00:19 Ondansetron Inj 4 Mg/2 Ml Vial IV PUSH Q4H PRN Nausea Potassium Chloride 20 meq 04/16/25 13:45 04/18/25 09:51 Potassium Chloride 20 Meq Er Tablet PO 05/17/25 13:44 20 meq DAILY ELDER Administration Saccharomyces Boulardii 250 mg 04/16/25 17:00 04/18/25 09:51 Saccharomyces Boulardii 250 Mg Capsule PO 250 mg BID ELDER Administration Sertraline HCl 100 mg 04/16/25 09:00 04/18/25 09:50 Sertraline Hcl 50 Mg Tablet PO 100 mg DAILY ELDER Administration Spironolactone 25 mg 04/16/25 09:00 04/18/25 09:51 Spironolactone 25 Mg Tablet PO 25 mg DAILY ELDER Administration Radiology Results: ITS Impressions Chest X-Ray 04/16/25 07:46 IMPRESSION: 1. No acute cardiopulmonary findings given portable technique. Labs Labs: Laboratory Results - last 24 hr 04/18/25 05:44 WBC 3.3 L RBC 3.36 L Hgb 10.0 L Hct 32.3 L MCV 96.1 MCH 29.8 MCHC 31.0 L RDW 14.6 H Plt Count 195 MPV 9.1 Sodium 135 L Potassium 3.8 Chloride 102 Carbon Dioxide 27 Anion Gap 6 BUN 10 Creatinine 0.63 L Estim Creat Clear Calc 71 Estimated GFR > 60 Glucose 103 Calcium 8.8 Quality VTE Prophylaxis VTE prophylaxis: pharmacologic ordered
[2025-04-18] MEDS: ACETAMINOPHEN 325 MG TABLET 650 MG PO (19:40)
[2025-04-18 20:12] VITALS: BP 126/78; PULSE 75; RESP 17; TEMP 36.5; O2SAT 97
[2025-04-19 04:51] VITALS: BP 115/60; PULSE 74; RESP 18; TEMP 36.9; O2SAT 97
[2025-04-19 06:42] LABS: Hematocrit 34.5 % (37.0-47.0); Hemoglobin 10.9 g/dL (12.0-15.0); Mean Corpuscular HGB Conc 31.6 g/dl (32-36); Mean Corpuscular Hemoglobin 30.0 pg (26-34); Mean Corpuscular Volume 95.0 fl (80-100); Platelet Count Result 202 k/mm3 (150-375); Red Blood Count 3.63 M/mm3 (4.2-5.4); White Blood Count 3.4 K/mm3 (4.5-10.0)
[2025-04-19 07:11] LABS: Anion Gap 4 mmol/L (4-12); Blood Urea Nitrogen 11 mg/dL (7-17); Calcium 9.4 mg/dL (8.4-10.2); Carbon Dioxide 29 mmol/L (22-30); Chloride 99 mmol/L (98-107); Estimated CRCL calculation 76 ml/min; Estimated Glomerular Filt Rate > 60; Glucose 110 mg/dL (65-110); Potassium 3.8 mmol/L (3.4-5.0); Sodium 132 mmol/L (137-145)
[2025-04-19] MEDS: SACCHAROMYCES BOULARDII 250 MG CAPSULE PO ×2 (09:08→17:13)
[2025-04-19] MEDS: MEROPENEM 1 GM in SODIUM CHLORIDE 0.9% IV 100 ML 200 ML IVPB ×2 (09:08→17:12)
[2025-04-19] MEDS: ATORVASTATIN 40 MG TABLET PO (09:08)
[2025-04-19] MEDS: FUROSEMIDE 40 MG TABLET PO (09:08)
[2025-04-19] MEDS: ASPIRIN 81 MG ENTERIC TABLET PO (09:09)
[2025-04-19] MEDS: MONTELUKAST SODIUM 10 MG TABLET PO (09:09)
[2025-04-19] MEDS: CLOPIDOGREL BISULFATE 75 MG TABLET PO (09:09)
[2025-04-19] MEDS: SERTRALINE HCL 50 MG TABLET 100 MG PO (09:09)
[2025-04-19] MEDS: SPIRONOLACTONE 25 MG TABLET PO (09:09)
[2025-04-19] MEDS: POTASSIUM CHLORIDE 20 MEQ ER TABLET PO (09:09)
[2025-04-19] MEDS: ACETAMINOPHEN 325 MG TABLET 650 MG PO (09:22)
--- NOTE | 2025-04-19 13:57 | WPDIDCN ---
Assessment and Plan Assessment and plan (1) Acute UTI: Code(s): N39.0 - Urinary tract infection, site not specified Status: Acute Assessment and Plan: ASSESSMENT: 1. MDR E.coli bacteriuria 2. Leukopenia 3. Electrolyte abnormality on admission 4. Remote Penicillin allergy- tolerates Meropenem PLAN: -Continue Meropenem while in-house -Can discharge on Nitrofurantoin x 3 days upon hospital discharge -Discussed with patient and family member. All questions answered. HPI Data of Consult Date/Time: 04/19/25 13:57 Requesting Physician: Emanuel Astorga DO Primary Care Provider: [facility] Consult Narrative Reason for consult: Positive urine culture Narrative: Kamilah Hale is a 75 year old female admitted with weakness. She was noted to have some dysuria prior to admission which has now resolved. UA with minimal pyuria with urine WBC 1-5 and urine culture grew MDR E. coli >100,00CFU. Patient was started on meropenem. Today, she reports no dysuria. She has no fever/chills/sweats. Denies hematuria. No recent indwelling urinary catheter but currently has external urinary catehter in place. She typically voides on her own but wears an adult brief. Review of Systems Review of Systems: All systems reviewed & are unremarkable except as noted in HPI and below PMFSH Past Medical History Medical History DVT (deep venous thrombosis) Asthma Family History Family History (Updated 04/16/25 @ 01:39 by Mary Jama RN) Sibling Diabetes mellitus Social History Social History Smoking status: Never smoker Alcohol intake: never Substance use: never Do You Feel Safe in your Home?: Yes Lack of Transportation: No Lack of Food: Never True Current Housing: I Have Housing Concerned About Future Housing: No Difficulty Paying Gas/Electric Bills: No Difficulty Paying for Meds: No Currently Unemployed: No Education: Grade School Difficulty w/ Childcare or Family Care: No Spiritual care concerns: No Meds Home Medications and Allergies Home Medications ?Medication ?Instructions ?Recorded ?Confirmed ?Type albuterol sulfate 90 mcg/actuation 1 inhalation inhalation Q4H 06/11/19 04/16/25 History aerosol inhaler (Ventolin HFA) furosemide 40 mg tablet 40 mg PO QAM 06/11/19 04/16/25 History montelukast 10 mg tablet 10 mg PO DAILY 06/11/19 04/16/25 History (Singulair) nitroglycerin 0.4 mg sublingual 0.4 mg sublingual Q5M PRN chest 06/11/19 04/16/25 History tablet pain buspirone 15 mg tablet 15 mg PO QID 06/13/19 04/16/25 History ondansetron HCl 4 mg tablet 4 mg PO Q8H 06/13/19 11/15/24 History aspirin 81 mg tablet,delayed 81 mg PO DAILY 11/15/24 04/16/25 History release atorvastatin 40 mg tablet 40 mg PO DAILY 11/15/24 04/16/25 History baclofen 10 mg tablet 10 mg PO Q8H PRN muscle spasm 11/15/24 11/15/24 History rxqjnnecal-shodvepcdnpxg-yrxtgbjg 1 tablet PO Q6H PRN pain 11/15/24 11/15/24 History 50 mg-325 mg-40 mg tablet clopidogrel 75 mg tablet 75 mg PO DAILY 11/15/24 04/16/25 History cyclobenzaprine 10 mg tablet 10 mg PO DAILY 11/15/24 11/15/24 History ferrous sulfate 325 mg (65 mg 325 mg PO DAILY 11/15/24 11/15/24 History iron) tablet (FeroSul) gabapentin 600 mg tablet 300 mg PO Q12H 11/15/24 11/16/24 History loperamide 2 mg capsule 2 mg PO DAILY 11/15/24 11/15/24 History mometasone-formoterol HFA 200 2 inh inhalation Q12H 11/15/24 11/15/24 History mcg-5 mcg/actuation aerosol inhaler (Dulera) pantoprazole 40 mg tablet,delayed 40 mg PO DAILY 11/15/24 11/15/24 History release potassium chloride 20 mEq 20 meq PO DAILY 11/15/24 04/16/25 History tablet,extended release(part/cryst) sertraline 100 mg tablet 100 mg PO DAILY 11/15/24 04/16/25 History spironolactone 25 mg tablet 25 mg PO DAILY 11/16/24 04/16/25 History cefdinir 300 mg capsule 300 mg PO Q12HR #8 caps 11/17/24 Rx hydrocodone 10 mg-acetaminophen 1 tablet PO DAILY PRN pain #5 tabs 11/17/24 Rx 325 mg tablet Allergies Allergy/AdvReac Type Severity Reaction Status Date / Time Penicillins Allergy Mild Rash Verified 04/16/25 01:38 Vital Signs Vital Signs - 24 hr 04/18/25 14:00 04/18/25 20:00 04/18/25 20:12 Temperature 98.2 F 97.7 F Pulse Rate 79 75 Respiratory Rate 18 17 Blood Pressure 123/57 L 126/78 Pulse Oximetry 98 97 Oxygen Delivery Room Air 04/19/25 04:51 Temperature 98.4 F Pulse Rate 74 Respiratory Rate 18 Blood Pressure 115/60 Pulse Oximetry 97 Oxygen Delivery Exam Narrative: Gen: A&Ox3, NAD HEENT: hard of hearing in right ear Cor:no tachycardia Pulm: no conversational dyspnea, no tachypnea, normal chest wall expansion Abd: non-distended : external urinary catheter in place Results Labs 04/19/25 06:23 04/19/25 06:23 Labs: Short CBC 04/19/25 Range/Units 06:23 WBC 3.4 L (4.5-10.0) K/mm3 Hgb 10.9 L (12.0-15.0) g/dL Hct 34.5 L (37.0-47.0) % Plt Count 202 (150-375) k/mm3 BMP 04/19/25 06:23 Sodium 132 L Potassium 3.8 Chloride 99 Carbon Dioxide 29 BUN 11 Creatinine 0.58 L Glucose 110 Calcium 9.4
--- NOTE | 2025-04-19 13:58 | P.DS_ITS ---
DS: Admitting Diagnosis Discharge Date 04/19/2025 Admitting Diagnosis UTI ESBL DS: Discharge Diagnosis Discharge Diagnosis (1) Electrolyte abnormality: Code(s): E87.8 - Other disorders of electrolyte and fluid balance, not elsewhere classified Status: Acute (2) Acute UTI: Code(s): N39.0 - Urinary tract infection, site not specified Status: Acute DS: Summary Hospital Course Reason for hospitalization: UTI/ESBL Hospital Course: admission: Pt to the ED c/o dysuria x3 weeks. Pt discussed with PCP / home health and a UA was obtained which yielded infection. Pt was put on cefdinir awaiting UC. UC yielding E coli, cef meds resistant. Pt was started on meropenem in the ED and continues inpt. Today pt reports that her dysuria is getting better and denies any other issues. Pt reports recent L hip surgery at [facility] in November 2024 and continues to undergo PT/OT at home. Pt also has a medical caregiver who comes to her house to help. Hospital course: Patient admitted to the medical unit and started on IV meropenem awaiting on cultures. ID had been consulted for recommendations. Patient vitals remained stable and labs with no significant findings. Per ID: -Continue Meropenem while in-house -Can discharge on Nitrofurantoin x 3 days upon hospital discharge Patient requesting to return home and reported dysuria had improved she was discharged to home on Macrobid x 3 more days Status at Discharge Functional status at discharge: uses cane/walker Overall status at discharge: patient is progressing back to baseline Time Spent with Patient Time attestation: Total time spent providing and/or coordinating discharge services: Time spent: Greater than 30 minutes Exam Narrative: Chronically ill-appearing obese, profoundly CHEESH-NA R>L Const: General: comfortable and no acute distress HENMT: Face/Nose/Sinus: Normal nares present Mouth: Yes moist mucous membranes Other: edentulous Eyes: General: appearance normal, both eyes and all related structures Sclera: sclerae normal Pupils: Equal, round and reactive pupils present Neck: Neck: supple Carotids: no bruits Resp: Effort & Inspection: normal respiratory effort Auscultation: diminished lung sounds (throughout) Cardio: Rate: regular rate Rhythm: regular rhythm GI: Inspection: non-distended Auscultation: normal bowel sounds : General: Yes bladder normal to palpation Bimanual exam- vagina & uterus: bladder normal to palpation Skin: Other: Bilateral knees with old surgical scars bilaterally L hip old Surgical scar Neuro: Cranial nerves: Yes Equal, round and reactive pupils present Motor exam (neuro): 5/5 motor strength present throughout Sensory Exam: normal sensation Other: edentulous, difficult to understand speech at times, pt reports chronic Extrem: General: normal exam except as noted Psych: Mental Status: mental status grossly normal Affect: normal affect DS: Data Data Completed and Pending Labs on day of discharge: Labs from last 24 hours 04/19/25 06:23 WBC 3.4 L RBC 3.63 L Hgb 10.9 L Hct 34.5 L MCV 95.0 MCH 30.0 MCHC 31.6 L RDW 14.6 H Plt Count 202 MPV 8.8 Sodium 132 L Potassium 3.8 Chloride 99 Carbon Dioxide 29 Anion Gap 4 BUN 11 Creatinine 0.58 L Estim Creat Clear Calc 76 Estimated GFR > 60 Glucose 110 Calcium 9.4 Preliminary micro results at discharge 04/15/25 22:44 Blood Culture - Preliminary Blood 04/15/25 22:53 Blood Culture - Preliminary Blood Discharge Plan Discharge Attending physician on discharge: Reynaldo Bunch Consulting providers: Amna Avila; Anitha Michele; Uriel Slater; Pretty Murphy; Ash Melgar; Fawad Samayoa Discharging Clinician: Cherelle Meyer Anticipated Discharge Date/Time: 04/19/25 14:02 Patient Disposition: Home Activity: may shower and as tolerated Diet: heart healthy Discharge Instructions: 1). UTI * I have prescribed Macrobid x3 more days take twice daily as instructed How can you care for yourself at home? ? Keep track of any new symptoms or changes in your symptoms. ? Rest until you feel better. ? Be safe with medicines. Take your medicines exactly as prescribed. Call your doctor if you think you are having a problem with your medicine. ? Do not drive after taking a prescription pain medicine. ? Ensure to follow-up with primary care physician as indicated and provide updated medication list provided to you at discharge. When should you call for help? Call 911 anytime you think you may need emergency care. For example, call if: ? You passed out (lost consciousness). Call your doctor now or seek immediate medical care if: ? You have new symptoms like fever, difficulty breathing, Chest pain, vomiting, or rash. ? You have new or different pain. ? You are confused and are having trouble thinking clearly. ? Your symptoms are getting worse. Watch closely for changes in your health, and be sure to contact your doctor if: ? You do not get better as expected. Patient Instructions: Antibiotic Form, Urinary Tract Infection in Older Adults (DC) Patient Language: Finnish Stand Alone Forms: General Discharge Information Follow-up/Referrals: PHYSICIAN,GANG RIDER [Primary Care Provider, Internal Medicine] - Keep Reg. Scheduled Appt. Discharge Medications: New nitrofurantoin monohyd/m-cryst 100 mg capsule 100 mg PO Q12H 3 Days Qty: 6 0RF Rx Instructions: must administer with a meal/food Continued furosemide 40 mg tablet 40 mg PO QAM nitroglycerin 0.4 mg tablet, sublingual 0.4 mg SUBLINGUAL Q5M PRN (Reason: chest pain) montelukast [Singulair] 10 mg tablet 10 mg PO DAILY albuterol sulfate [Ventolin HFA] 90 mcg/actuation HFA aerosol inhaler 1 inhalation INHALATION Q4H buspirone 15 mg tablet 15 mg PO QID ondansetron HCl 4 mg tablet 4 mg PO Q8H fajrvnzaui-vpdfkcmllmitn-gnfu 50-325-40 mg tablet 1 tablet PO Q6H PRN (Reason: pain) gabapentin 600 mg tablet 300 mg PO Q12H baclofen 10 mg tablet 10 mg PO Q8H PRN (Reason: muscle spasm) potassium chloride 20 mEq tablet,ER particles/crystals 20 meq PO DAILY sertraline 100 mg tablet 100 mg PO DAILY clopidogrel 75 mg tablet 75 mg PO DAILY Dulera 200-5 mcg/actuation HFA aerosol inhaler 2 inh inhalation Q12H ferrous sulfate [FeroSul] 325 mg (65 mg iron) tablet 325 mg PO DAILY loperamide 2 mg capsule 2 mg PO DAILY pantoprazole 40 mg tablet,delayed release (DR/EC) 40 mg PO DAILY aspirin 81 mg tablet,delayed release (DR/EC) 81 mg PO DAILY atorvastatin 40 mg tablet 40 mg PO DAILY cyclobenzaprine 10 mg tablet 10 mg PO DAILY spironolactone 25 mg tablet 25 mg PO DAILY hydrocodone-acetaminophen 10-325 mg tablet 1 tablet PO DAILY PRN (Reason: pain) Qty: 5 0RF Discontinued cefdinir 300 mg Capsule 300 mg PO Q12HR Qty: 8 0RF Date of admission: 04/17/25 13:59 Primary Care Provider: PHYSICIAN,GANG RIDER Admitting Provider: Bridgette Astorga Attending physician on admission: Cherelle Meyer Condition: Stable Quality VTE Prophylaxis VTE prophylaxis: pharmacologic ordered -Patient's previous records reviewed on admission -ER notes reviewed in detail on admission -discussed all findings and current treatment plan with patient/Family/POA -Consultations reviewed for recommendations -Patient's disposition for safe discharge discussed with porter sample case -radiology imaging, EKG and test results I have personally reviewed and interpreted unless otherwise specified Dictation performed by [employer] direct speech recognition software, therefore wire harness design engineer variants and typographical errors may occur. Hospitalist MIPS Heart Failure (Exclusion) Patient has history of Heart Transplant or Left Ventricular Assistive Device?: No IF YES, STOP HERE Heart Failure (Qualifier) Patient has current or prior documentation of LVEF less than or equal to 40%, or mod/servere depressed LVSF?: No IF NO, STOP HERE
[2025-04-19 14:00] VITALS: BP 120/61; PULSE 83; RESP 17; TEMP 36.6; O2SAT 96
[2025-04-19 20:37] VITALS: BP 130/68; PULSE 81; RESP 20; TEMP 36.7; O2SAT 98
== END 2025-04-19 22:00 | disposition home or self-care (01) | DRG 463 ==
LOC: ANHED 23:58 → ANH3MEDSUR 04-16 01:29
PROVIDERS: Nurse Practitioner; Admitting Provider Student in an Organized Health Care Education/Training Program; Emergency Provider Emergency Medicine; Visit Provider Nurse Practitioner Family
DX: N39.0 Urinary tract infection, site not specified (principal); B96.20 Unspecified Escherichia coli [E. coli] as the cause of diseases classified elsewhere; Z16.12 Extended spectrum beta lactamase (ESBL) resistance; E87.6 Hypokalemia; E87.1 Hypo-osmolality and hyponatremia; D64.9 Anemia, unspecified; D72.819 Decreased white blood cell count, unspecified; Z86.718 Personal history of other venous thrombosis and embolism; E66.9 Obesity, unspecified; Z68.35 Body mass index [BMI] 35.0-35.9, adult
CPT/HCPCS: 36415; 71045; 80048; 80053; 81001; 83605; 85025; 85027; 87040; 87086; 87186; 96365; 96366; 99285; A9270; G0378; G0379; J1644; J2185